=== PATIENT | female | born 1975 | race Caucasian/White ===

== ENCOUNTER 2019-11-26 00:26 | Inpatient (IN) | payer MEDICAID, OTHER, SELFPAY ==
[~2019-11-26] VITALS: Ht 154.9 cm; Wt 53.4 kg
[2019-11-26] MEDS ORDERED: no home meds (00:52)
[2019-11-26 01:11] LABS: HEMATOCRIT 38.8 % (36.0-47.0); HEMOGLOBIN 11.4 g/dl (12.0-15.5); MEAN CORPUSCULAR HEMOGLOBIN 22.8 pg (27.0-33.0); MEAN CORPUSCULAR HGB CONC 29.4 g/dl (32.0-36.5); MEAN CORPUSCULAR VOLUME 77.6 fl (80.0-96.0); PLATELET COUNT, AUTOMATED 236 10^3/uL (150-450); WHITE BLOOD COUNT 10.9 10^3/uL (4.0-10.0)
[2019-11-26 01:15] LABS: INR 1.27; PARTIAL THROMBOPLASTIN TIME 30.7 SECONDS (25.0-38.4); PROTHROMBIN TIME 15.6 SECONDS (11.8-14.0)
[2019-11-26] MEDS ORDERED: NS 1,000 ML IV ONE (01:15)
[2019-11-26] MEDS ORDERED: ONDANSETRON 4MG/2ML VIAL (J2405) IV ONE (01:15)
[2019-11-26] MEDS ORDERED: fentaNYL 100 MCG/2 ML INJECTION (J3010) IV ONE ×2 (01:15→05:00)
[2019-11-26 01:25] LABS: ALBUMIN 1.2 GM/DL (3.2-5.2); ALT/SGPT 37 U/L (12-78); BILIRUBIN,DIRECT 0.1 MG/DL (0.0-0.2); BILIRUBIN,TOTAL 0.3 MG/DL (0.2-1.0); BLOOD UREA NITROGEN 17 MG/DL (7-18); CALCIUM LEVEL 7.2 MG/DL (8.5-10.1); CARBON DIOXIDE LEVEL 25 MEQ/L (21-32); CHLORIDE LEVEL 106 MEQ/L (98-107); CK-MB VALUE MASS 1.3 NG/ML (<3.6); CPK CREATINE PHOSPHOKINASE 40 U/L (26-192); CREATININE FOR GFR 0.38 MG/DL (0.55-1.30); GLOMERULAR FILTRATION RATE > 60.0 (>58); GLUCOSE, FASTING 75 MG/DL (70-100); LIPASE 15 U/L (73-393); MB/CK RELATIVE INDEX 3.25 (< OR =4); NT-PRO BNP 133 PG/ML (<125); POTASSIUM SERUM 4.4 MEQ/L (3.5-5.1); SODIUM LEVEL 139 MEQ/L (136-145); TOTAL PROTEIN 4.4 GM/DL (6.4-8.2); TROPONIN I < 0.02 NG/ML (< 0.10)
[2019-11-26 01:29] LABS: ANISOCYTOSIS 3+; BASOPHILS 1 % (0-1); LYMPHOCYTES 12 % (16-44); METAMYELOCYTES 5 % (0-0); MONOCYTES 7 % (0-5); NEUTROPHILS 63 % (28-66); PLATELET ESTIMATE NORMAL (NORMAL)
[2019-11-26 01:33] LABS: HYPOCHROMASIA 2+
[2019-11-26] MEDS ORDERED: ISOVUE-370 76% 100ML VIAL (Q9967) As Ordered ONE (01:55)
--- NOTE | 2019-11-26 03:02 | REPVR ---
PROCEDURE INFORMATION: Exam: US Duplex Lower Extremity Veins Exam date and time: 11/26/2019 2:06 AM Age: 44 years old Clinical indication: Pain; Edema, localized; Lower extremity, bilateral; Leg, upper and leg, lower; Additional info: B/l lower extremity swelling TECHNIQUE: Imaging protocol: Real-time duplex ultrasound of the Lower Extremities with 2-D parker scale, color Doppler flow and spectral waveform analysis with image documentation. Complete exam focused on the bilateral lower extremity veins. COMPARISON: No relevant prior studies available. FINDINGS: Right deep veins: There is an occlusion of the right femoral vein in the upper and mid thigh and a partial occlusion of the right femoral vein in the distal thigh. The right common femoral vein is patent and compresses normally and demonstrates normal color Doppler flow and a normal spectral waveform. The right popliteal vein demonstrates normal color Doppler flow, a normal spectral waveform response augmentation, and normal compressibility. Right superficial veins: Saphenofemoral junction is patent without thrombus. Left deep veins: The left common femoral vein is patent and demonstrates normal compressibility, color Doppler flow, and a spectral waveform. There is an occlusion of the left femoral vein and left popliteal vein, which demonstrate lack of normal color Doppler flow and lack of a normal spectral waveform. Left superficial veins: Saphenofemoral junction is patent without thrombus. IMPRESSION: 1. Deep vein thrombosis occluding the right femoral vein in the upper and mid thigh and partially occluding the right femoral vein in the distal thigh. 2. Deep vein thrombosis completely occluding the left femoral vein and left popliteal vein. Electronically signed by: Rishi Gongora On 11/26/2019 03:02:08 AM
--- NOTE | 2019-11-26 03:28 | REPVR ---
PROCEDURE INFORMATION: Exam: CT Angiography Chest With Contrast Exam date and time: 11/26/2019 1:49 AM Age: 44 years old Clinical indication: Palpitations, SOB, abd pain TECHNIQUE: Imaging protocol: Computed tomographic angiography of the chest with intravenous contrast. 3D rendering: MIP and/or 3D reconstructed images were created by the technologist. Radiation optimization: All CT scans at this facility use at least one of these dose optimization techniques: automated exposure control; mA and/or kV adjustment per patient size (includes targeted exams where dose is matched to clinical indication); or iterative reconstruction. Contrast material: ISO; Contrast volume: 90 ml; Contrast route: AC; COMPARISON: No relevant prior studies available. FINDINGS: Pulmonary arteries: There are filling defects in the segmental and subsegmental pulmonary arteries supplying the anterior, posterior, and apical segments of the right upper lobe, posterior and lateral segments of the right lower lobe, apicoposterior segment of the left upper lobe, and anteromedial and lateral segments of the left lower lobe, which are compatible with acute pulmonary emboli. The pulmonary artery trunk and main pulmonary arteries are patent. Great vessels off aortic arch: The brachiocephalic artery, imaged proximal portion of the left common carotid artery, and left subclavian artery are intact. No significant stenosis or occlusion of these vessels is noted. Aorta: There is no thoracic aortic aneurysm, pseudoaneurysm, intramural hematoma, penetrating atherosclerotic ulcer, or dissection. Lungs: There are peripheral airspace opacities in the anterior segment of the right upper lobe, lateral segment of the right lower lobe, and anteromedial and lateral segments of the left lower lobe, which are most compatible with pulmonary infarcts. Mild ground-glass opacities are also present in the right middle lobe, right lower lobe, and left lower lobe. There is mild scarring of the lung apices. The major airways are patent. Pleural space: Unremarkable. No pneumothorax. No pleural effusion. Heart: No cardiomegaly. No pericardial effusion. The ratio of the diameter of the right ventricle to the diameter of the left ventricle measures less than 1, which is within normal limits and there is no evidence for a right ventricular strain. Mediastinum: No mediastinal mass, fluid collection, or pneumomediastinum. Lymph nodes: Normal. No enlarged lymph nodes. Bones/joints: The imaged bony structures are intact. There is no suspicious osteolytic or osteoblastic lesion. There are endplate spurs in the thoracic spine. Soft tissues: Unremarkable. Other findings: Refer to the CT abdomen and pelvis report on 11/26/2019 for details regarding the abdominal and pelvic findings. IMPRESSION: Multiple acute bilateral pulmonary emboli with pulmonary infarcts in the anterior segment of the right upper lobe, lateral segment of the right lower lobe, and anteromedial and lateral segments of the left lower lobe. No CT evidence for a right ventricular strain. Electronically signed by: Rishi Gongora On 11/26/2019 03:28:23 AM
--- NOTE | 2019-11-26 03:55 | REPVR ---
PROCEDURE INFORMATION: Exam: CT Abdomen And Pelvis With Contrast Exam date and time: 11/26/2019 1:49 AM Age: 44 years old Clinical indication: Palpitations, SOB, abd pain TECHNIQUE: Imaging protocol: Computed tomography of the abdomen and pelvis with intravenous contrast. Radiation optimization: All CT scans at this facility use at least one of these dose optimization techniques: automated exposure control; mA and/or kV adjustment per patient size (includes targeted exams where dose is matched to clinical indication); or iterative reconstruction. Contrast material: ISO; Contrast volume: 90 ml; Contrast route: AC; COMPARISON: No relevant prior studies available. FINDINGS: Lungs: Refer to the CTA chest report on 11/26/2019 for details. Heart: Refer to the CTA chest report on 11/26/2019 for details. Liver: The attenuation of the liver is more than 40 Hounsfield units lower in attenuation compared to the spleen, which is compatible with fatty liver infiltration. No liver lesion is seen. The contour of the liver is smooth. No hepatomegaly is noted. Gallbladder and bile ducts: There has been a cholecystectomy. There is no fluid collection in the gallbladder fossa. No dilation of the intrahepatic bile ducts is noted. The common bile duct is mildly dilated and measures 7 mm in diameter. No calcified stones are seen in the common bile duct. Pancreas: Normal. No ductal dilation. Spleen: The spleen is heterogeneous in appearance, which is likely secondary to the arterial timing of the contrast bolus. No splenomegaly. Adrenals: Normal. No mass. Kidneys and ureters: The kidneys are normal in appearance. No renal lesion is identified. No calculi are seen in the kidneys or ureters. There is no hydronephrosis or hydroureter. There are no wedge-shaped areas of low attenuation in the kidneys to suggest pyelonephritis. There is no renal abscess or perinephric fluid collection. Stomach and bowel: Postoperative changes are noted from a Lila-en-Y gastric bypass surgery. 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 The cecum is located in the right side of the pelvis. There is thickening of the wall of loops of jejunum and ileum and the wall of the cecum, ascending colon, and transverse colon with associated mucosal enhancement, and these findings are compatible with an enterocolitis. No hypoenhancement of the bowel wall or pneumatosis intestinalis is noted to suggest ischemic bowel. Appendix: The appendix has been removed and suture material is noted at the base of the cecum. Intraperitoneal space: There is a trace amount of free fluid in the abdomen. No abscess. No free air. There is a 3.8 cm oval-shaped fat density lesion with peripheral calcifications in the greater omentum in the left upper quadrant of the abdomen, which is likely dystrophic in nature. Retroperitoneal space: Unremarkable. No fluid collection. No mass. Vasculature: The abdominal aorta is patent, normal in caliber, and there is no dissection. The renal arteries, celiac artery, superior mesenteric artery, inferior mesenteric artery, iliac arteries, and common femoral arteries are patent. The portal veins, splenic vein, superior mesenteric vein, inferior mesenteric vein, and renal veins are patent. The superior mesenteric vein is located to the left of the superior mesenteric artery. Lymph nodes: Normal. No enlarged lymph nodes. Bladder: There is a Thomas catheter in appropriate position in the urinary bladder and gas in the bladder. No calculi or masses are noted in the bladder. Reproductive: The anteverted uterus and ovaries are unremarkable. Bones/joints: The imaged bony structures are intact. There is no suspicious osteolytic or osteoblastic lesion. Soft tissues: Unremarkable. No hernia. IMPRESSION: 1. Enterocolitis and a trace amount of free fluid in the abdomen. No abscess or perforated viscus. 2. Congenital malrotation of the bowel. No evidence for volvulus. 3. Fatty liver. Electronically signed by: Rishi Gongora On 11/26/2019 03:55:20 AM
[2019-11-26] MEDS ORDERED: HEPARIN DRIP 25,000 UNITS in IV 1 EA IV SCH ×2 (04:11→04:47)
[2019-11-26] MEDS ORDERED: HEPARIN SOD (PORCINE) 5000 UNITS/ML VIAL IV ONE (04:15)
[2019-11-26] MEDS ORDERED: MOM 30ML SUSPENSION UDC PO PRN (05:00)
[2019-11-26] MEDS ORDERED: MAALOX 30 ML SUSP *UDC PO PRN (05:00)
[2019-11-26] MEDS ORDERED: GLUCOSE 4 GM CHEW TABLET PO PRN (05:00)
[2019-11-26] MEDS ORDERED: DEXTROSE 50% 50 ML SYRINGE IV PRN (05:00)
[2019-11-26] MEDS ORDERED: GLUCAGON FOR INJ 1 MG VIAL (J1610) SC PRN (05:00)
--- NOTE | 2019-11-26 05:02 | HPEPDOC ---
[facility] Medical History & Physical Date of Admission Nov 26, 2019 Date of Service: Nov 26, 2019 Attending Physician: MCKINLEY FORREST MD History and Physical CHIEF COMPLAINT: leg pain/swelling, SOB HISTORY OF PRESENT ILLNESS: Bisi Lin is a 44 -year-old female who presented to the emergency department today with a 5 week history of swelling and pain in bilateral lower extremities and a 2 day history of shortness of breath. 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 She thought that this was just related to her work. She then noticed increasing pain and tenderness in bilateral calfs. She began spending more time on the couch and was unable to get up and walk due to pain. She reports for the past 5 days she has had a very poor food and fluid intake due to abdominal pain. She states she has been having pain in her lower abdomen and nausea over this time. She denies any vomiting or diarrhea. She denies any blood in her stool or black-colored stools. She also notes that she had not urinated in the past 4 days as well, until the Thomas catheter was placed in the emergency department. Patient also notes a 25-30 pound weight loss over the past week or two. She reports feeling fatigued and tired. PAST MEDICAL HISTORY: 1. Hx peptic ulcers with EGD and cauterization PAST SURGICAL HISTORY: 1. Gastric bypass 2009 2. 4 Incisional hernia repairs 3. Appendectomy. 4. Cholecystectomy. 5. 2 Abdominal scar revisions. 6. 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 Currently smokes half a pack a day for the past 20+ years, 10 pyh, has not smoked in the past 4-5 days. Denies alcohol or IV drug use. Admits to history of oxycodone abuse and Suboxone abuse over 5 years ago. FAMILY HISTORY: No known history of clotting disorders or cancers ALLERGIES: Please see below. REVIEW OF SYSTEMS: CONSTITUTIONAL: Endorses fatigue, unexpected change in weight. Denies fevers, chills, night sweats. HEENT: Denies change in vision, change in hearing. CARDIOVASCULAR: Endorses shortness of breath. Denies chest pain, palpitations, lightheadeness. RESPIRATORY: Denies cough, wheezing. GASTROINTESTINAL: Endorses nausea, abdominal pain. Denies vomiting, diarrhea, consitpation, blood in stool. GENITOURINARY: Endorses poor urinary output. Denies dysuria, urinary frequency, urinary urgency. SKIN: Denies rash, lesions. MUSCULOSKELETAL: Endorses bilateral foot and calf pain, bilateral calf and foot swelling, difficulty walking due to pain. NEUROLOGICAL: Endorses headache across the frontal region. Denies dizziness, weakness. PSYCHIATRIC: Denies change in mood. HOME MEDICATIONS: Please see below. PHYSICAL EXAMINATION: VITAL SIGNS: See below on room air. GENERAL: Alert, comfortable, appears in mild distress due to pain. Appears thin in her upper extremities and torso with significant edema in the lower extre mities. HEENT: Normocephalic, atraumatic, PERRLA, EOMI, dry mucous membranes NECK: Supple, trachea midline, no lymphadenopathy, no JVD appreciated CARDIOVASCULAR: Regular rate and rhythm, normal S1 and S2. No murmurs, rubs, or gallops RESPIRATORY: Decreased breath sounds bilaterally. No adventitious sounds appreciated. No use of accessory muscles to breathe. ABDOMEN: Tender throughout to palpation with increased tenderness over the left lower quadrant. Soft and nondistended with mild guarding but no rigidity or rebound tenderness. Multiple well-healed surgical scars. Bowel sounds present. EXTREMITIES: 4+ pitting edema in bilateral lower extremities up to the knee. Bilateral calf and pedal tenderness. Dorsalis pedis and posterior tibial pulses difficult to appreciate due to swelling and tenderness. No swelling or tenderness of the upper extremities. Capillary refill <2 sec. SKIN: [place], warm, dry NEUROLOGIC: Alert and oriented 3 [address] person, [address] and time. Cranial nerves 2-12 grossly intact. No focal deficits appreciated PSYCHIATRIC: Mood and affect appropriate LABORATORY DATA: See below. IMAGING: Lower extremity duplex U/S: 1. Deep vein thrombosis occluding the right femoral vein in the upper and mid thigh and partially occluding the right femoral vein in the distal thigh. 2. Deep vein thrombosis completely occluding the left femoral vein and left popliteal vein. CTA chest: Multiple acute bilateral pulmonary emboli with pulmonary infarcts in the anterior segment of the right upper lobe, lateral segment of the right lower lobe, and anteromedial and lateral segm ents of the left lower lobe. No CT evidence for a right ventricular strain. CT abdomen/pelvis: 1. Enterocolitis and a trace amount of free fluid in the abdomen. No abscess or perforated viscus. 2. Congenital malrotation of the bowel. No evidence for volvulus. 3. Fatty liver. MICROBIOLOGY: Please see below. ASSESSMENT: 44-year-old female with past medical history of gastric bypass, presents with 5 week history of progressive bilateral calf pain and swelling and 2 day history of shortness of breath, found to have bilateral lower extremity DVTs and multiple bilateral pulmonary emboli PLAN: 1. VTE - bilateral LE DVTs and pulmonary emboli - VS currently stable, O2 saturations maintaining above 95% on room air - Pt started on heparin drip in the ED. Consider vascular surgery consult for further intervention. - Elevate LE, pain control (avoid NSAIDs with hx of gastric bypass), coagulation studies ordered - Concern for CA, question mass on CT scan, bladder v. colon, not in the official report from [facility]. [facility] called to re-evaluate. 2. SIRS criteria - On presentation temp 100.4 F, HR 102, 12% bandemia, meets 3/4 criteria - likely reactive with possible underlying malignancy 3. Enterocolitis - clear liquid diet, advance as tolerated. expect poor oral intake given HPI, co ntinue maintenance IV fluids and q6 FSBS and hypoglycemic protocoluntil oral intake is sufficient, may need to add D5 to fluids if hypoglycemic. 4. Hx of anemia - Hg low at 11.4, microcytic with low MVC - Ordered iron panel and B12 considering hx of gastric bypass Disposition: Admitted inpatient to PCU, anticipate greater than 2 midnights stay Vital Signs Vital Signs Date Time Temp Pulse Resp B/P (MAP) Pulse Ox O2 Delivery O2 Flow Rate FiO2 11/26/19 03:45 92 16 97 Room Air 11/26/19 03:30 98/60 (73) 11/26/19 01:42 100.4 Laboratory Data Labs 24H Laboratory Tests 2 11/26/19 00:42: Nucleated Red Blood Cells % (auto) 0.0, Neutrophils 63, Band Neutrophils 12H, Lymphocytes (Manual) 12L, Monocytes (Manual) 7H, Basophils (Manual) 1, Metamyelocytes 5H, Hypochromasia 2+, Anisocytosis 3+, Target Cells , Platelet Estimate NORMAL, Prothrombin Time 15.6H, Prothromb Time International Ratio 1.27, Activated Partial Thromboplast Time 30.7, Anion Gap 8, Glomerular Filtration Rate > 60.0, Lactic Acid Level 2.0, Calcium Level 7.2L, Total Bilirubin 0.3, Direct Bilirubin 0.1, Aspartate Amino Transf (AST/SGOT) 23, Alanine Aminotransferase (ALT/SGPT) 37, Alkaline Phosphatase 202H, Total Creatine Kinase 40, Creatine Kinase MB 1.3, Creatine Kinase MB Relative Index 3.25, Troponin I < 0.02, WM-Uxr-Y-Type Natriuretic Peptide 133H, Total Protein 4.4L, Albumin 1.2L, Albumin/Globulin Ratio 0.38L, Lipase 15L 11/26/19 01:22: POC Glucose (Misc Panel) 80, POC Sodium (Misc Panel) 134L, POC Potassium (Misc Panel) 4.1, POC Chloride (Misc Panel) 103, POC Total CO2 (Misc Panel) 24.0, POC Blood Urea Nitrogen (Misc Panel 15, POC Ionized Calcium (Misc Panel) 4.5, POC Creatinine (Misc Panel) 0.3L, POC Hematocrit (Misc Panel) 35.0L 11/26/19 01:38: Urine Color DAPHNE, Urine Appearance CLEAR, Urine pH 6.0, Urine Specific [place] 1.026, Urine Protein NEGATIVE, Urine Glucose (UA) NEGATIVE, Urine Ketones TRACEH, Urine Blood NEGATIVE, Urine Nitrite NEGATIVE, Urine Bilirubin 1+H, Urine Urobilinogen 4.0H, Urine Leukocyte Esterase NEGATIVE, Urine WBC (Auto) 0, Urine RBC (Auto) 1, Urine Hyaline Casts (Auto) 0, Urine Bacteria (Auto) NEGATIVE, Urine Squamous Epithelial Cells 0, Urine Mucus (Auto) SMALL, Urine Sperm (Auto) CBC/BMP Laboratory Tests 11/26/19 00:42 Microbiology Microbiology 11/26/19 Blood Culture, Received Pending 11/26/19 Blood Culture, Received Pending Home Medications Scheduled Rivaroxaban (Xarelto) 20 Mg Tablet, 20 MG PO DAILY@18 Allergies Coded Allergies: morphine (Verified Allergy, Intermediate, hives, 11/26/19) A-FIB/CHADSVASC A-FIB History Current/History of A-Fib/PAF?: No GME ATTESTATION GME ATTESTATION My faculty preceptor for this patient encounter was physically present during the encounter and was fully available. All aspects of the patient interview, examination, medical decision making process, and medical care plan development were reviewed and approved by the faculty preceptor. The faculty preceptor is aware and concurs with the plan as stated in the body of this note and will attest to such by his/her cosignature. ATTENDING NOTE I examined VitalyDelia, reviewed and edited 's note and agree with the findings as documented. WANG LANDAVERDE D.O. Nov 26, 2019 05:02 MCKINLEY FORREST MD Nov 29, 2019 01:32
[2019-11-26 06:19] LABS: HEMATOCRIT 31.2 % (36.0-47.0); HEMOGLOBIN 9.6 g/dl (12.0-15.5); MEAN CORPUSCULAR HEMOGLOBIN 23.4 pg (27.0-33.0); MEAN CORPUSCULAR HGB CONC 30.8 g/dl (32.0-36.5); MEAN CORPUSCULAR VOLUME 76.1 fl (80.0-96.0); PLATELET COUNT, AUTOMATED 206 10^3/uL (150-450); WHITE BLOOD COUNT 10.4 10^3/uL (4.0-10.0)
[2019-11-26 06:37] VITALS: BP 98/60
[2019-11-26 06:37] LABS: FIBRINOGEN 136 MG/DL (221-452)
[2019-11-26] MEDS: NS 1,000 ML IV SCH ×3 (06:46→23:21)
[2019-11-26 06:57] LABS: PERCENT SATURATION 45.4 % (13.2-45.0)
[2019-11-26 07:06] LABS: PARTIAL THROMBOPLASTIN TIME > 120.0 SECONDS (25.0-38.4)
[2019-11-26 08:00] VITALS: BP 100/62
[2019-11-26] MEDS: ACETAMINOPHEN TAB 650MG DOSE (2X325MG) PO PRN (09:05)
[2019-11-26] MEDS: DOCUSATE SODIUM 100 MG CAP PO SCH ×2 (09:05→20:38)
[2019-11-26] MEDS: PANTOPRAZOLE 40MG TAB (PROTONIX) PO SCH (09:05)
[2019-11-26 11:13] LABS: PTT LUPUS TYPE ANTICOAG SCREEN 1.6 (0-1.2)
[2019-11-26 11:57] LABS: DRVV CONFIRM 48.8 SEC; LUPUS CONFIRM RATIO 1.3
[2019-11-26 11:58] LABS: NORMALIZED RATIO 1.23 (0.00-1.20)
[2019-11-26 12:00] VITALS: BP 96/52
[2019-11-26] MEDS: HEPARIN SOD (PORCINE) 5000 UNITS/ML VIAL IV PRN ×2 (12:07→19:03)
[2019-11-26 16:00] VITALS: BP 98/76
[2019-11-26] MEDS: PIPERACILLIN/TAZOBACTAM SOD 3.375 GM in D5W MINI-BAG PLUS 50 ML IV SCH ×2 (17:45→23:21)
[2019-11-26 20:00] VITALS: BP 99/62
[2019-11-27] VITALS (7 sets, daily range): BP systolic 90–112; BP diastolic 57–67
[2019-11-27] MEDS: PIPERACILLIN/TAZOBACTAM SOD 3.375 GM in D5W MINI-BAG PLUS 50 ML IV SCH ×2 (04:37→11:51)
--- NOTE | 2019-11-27 07:51 | ECGEPIP ---
[facility] - ED Test Date: 2019-11-26 Pat Name: AMANDA SHARP Department: Room: [place] [address] Gender: Female Sack Sorter: : 1975 Requested By: ISAEL Fernandez Order Number: [id number] Reading MD: Yazmin Espinosa Measurements Intervals [place] Rate: 90 P: 56 GA: 132 QRS: 67 QRSD: 75 T: 37 QT: 305 QTc: 374 Interpretive Statements SINUS RHYTHM NONSPECIFIC T-WAVE ABNORMALITY NO PRIOR Electronically Signed on 11-27-2019 7:51:32 EST by Yazmin Espinosa
[2019-11-27 08:34] LABS: ALBUMIN 0.9 GM/DL (3.2-5.2); ALT/SGPT 29 U/L (12-78); BILIRUBIN,TOTAL 0.3 MG/DL (0.2-1.0); BLOOD UREA NITROGEN 16 MG/DL (7-18); CALCIUM LEVEL 6.9 MG/DL (8.5-10.1); CARBON DIOXIDE LEVEL 23 MEQ/L (21-32); CHLORIDE LEVEL 111 MEQ/L (98-107); CREATININE FOR GFR 0.26 MG/DL (0.55-1.30); GLOMERULAR FILTRATION RATE > 60.0 (>58); GLUCOSE, FASTING 76 MG/DL (70-100); MAGNESIUM LEVEL 1.7 MG/DL (1.8-2.4); PHOSPHORUS LEVEL 2.7 MG/DL (2.5-4.9); POTASSIUM SERUM 3.6 MEQ/L (3.5-5.1); SODIUM LEVEL 141 MEQ/L (136-145); TOTAL PROTEIN 3.8 GM/DL (6.4-8.2)
[2019-11-27] MEDS: HEPARIN SOD (PORCINE) 5000 UNITS/ML VIAL IV PRN (08:56)
[2019-11-27] MEDS: PANTOPRAZOLE 40MG TAB (PROTONIX) PO SCH (09:26)
[2019-11-27] MEDS: DOCUSATE SODIUM 100 MG CAP PO SCH ×2 (09:26→21:00)
[2019-11-27] MEDS: RIVAROXABAN 20 MG TAB (XARELTO) PO SCH (12:19)
--- NOTE | 2019-11-27 12:28 | IPNPDOC ---
Subjective Date Seen The patient was seen on 11/27/19. Subjective Chief Complaint/HPI Patient complaining of abdominal pain, refusing to take Tylenol or Motrin and requesting opiate meds. Patient SEEMS lethargic. When interviewed, but as per patient, she has been up all night because when she is drowsy. General: Denies: ROS Unobtainable, Chills, Night Sweats, Fatigue, Malaise, Normal Appetite, Other Symptoms Skin: Denies: Rash, Lesions, Jaundice, Bruising, Itching, Dry, Breakdown, Nail Changes, Other Pulmonary: Denies: Dyspnea, Cough, Pleuritic Chest Pain, Other Symptoms Cardiovascular: Denies: Chest Pain, Palpitations, Orthopnea, Paroxysmal Noc. Dyspnea, Edema, Lt Headedness, Other Symptoms Gastrointestinal: Reports: Abdominal Pain Musculoskeletal: Denies: Neck Pain, Back Pain, Shoulder Pain, Arm Pain, Hand Pain, Leg Pain, Foot Pain, Joint Pain, Muscle Pain, Spasms, Other Symptoms Neurological: Denies: Weakness, Numbness, Incoordination, Change in speech, Confusion, Seizures, Other Symptoms Objective Physical Examination General Exam: Positive: Cooperative, Other Eye Exam: Positive: PERRLA, Conjunctiva & lids normal ENT Exam: Positive: Atraumatic, Mucous membr. moist/pink Chest Exam: Positive: Clear to auscultation, Normal air movement Heart Exam: Positive: Rate Normal, Normal S1, Normal S2 Abdomen Exam: Positive: Normal bowel sounds, Soft, Tenderness (generalized tenderness all over the abdomen jumps when I touch her with my hand while not palpating deep) Skin Exam: Positive: Nl turgor and temperature Neuro Exam: Positive: Strength at 5/5 X4 ext, Sensation Intact, Cranial Nerves 3-12 NL Assessment /Plan Problems (1) Enterocolitis Status: Acute Problem Text: Patient is currently on clear liquid diet, advance as tolerated Continue IV fluids as per orders Continue Tylenol when necessary for pain (2) Pulmonary embolism Status: Acute Problem Text: Heparin drip continued Patient is started on Xarelto by mouth (3) DVT, bilateral lower limbs Status: Acute Problem Text: Heparin drip discontinued and is started on by mouth Xarelto Plan/VTE VTE Prophylaxis Ordered?: Yes VS, I&O, 24H, Fishbone Vital Signs/I&O Vital Signs Date Time Temp Pulse Resp B/P (MAP) Pulse Ox O2 Delivery O2 Flow Rate FiO2 11/27/19 11:51 98.5 84 18 108/64 (79) 95 11/27/19 04:00 Nasal Cannula 2.0 I&O- Last 24 Hours up to 6 AM 11/27/19 06:00 Intake Total 1379.0 ml Output Total 675 ml Balance 704.0 ml Laboratory Data 24H LABS Laboratory Tests 2 11/26/19 14:49: Lactic Acid Level 2.4*H 11/26/19 17:12: Bedside Glucose (Misc Panel) 69L 11/26/19 18:26: Activated Partial Thromboplast Time 36.7 11/26/19 19:18: Lactic Acid Followup at 4 Hours 3.2*H 11/26/19 23:27: Bedside Glucose (Misc Panel) 75 11/27/19 01:37: Activated Partial Thromboplast Time 68.1H 11/27/19 06:13: Bedside Glucose (Misc Panel) 89 11/27/19 07:46: Activated Partial Thromboplast Time 40.4H, Anion Gap 7L, Glomerular Filtration Rate > 60.0, Calcium Level 6.9L, Phosphorus Level 2.7, Magnesium Level 1.7L, Total Bilirubin 0.3, Aspartate Amino Transf (AST/SGOT) 17, Alanine Aminotransferase (ALT/SGPT) 29, Alkaline Phosphatase 190H, Total Protein 3.8L, Albumin 0.9#L, Albumin/Globulin Ratio 0.31L CBC/BMP Laboratory Tests 11/27/19 07:46 Microbiology Microbiology 11/26/19 Blood Culture - Preliminary, Resulted No growth after 24 hours . All specim... 11/26/19 Blood Culture - Preliminary, Resulted No growth after 24 hours . All specim... YARELIS HAMILTON MD Nov 27, 2019 12:28
[2019-11-27] MEDS: CIPROFLOXACIN 400 MG in IV 1 EA IV SCH (13:48)
[2019-11-27] MEDS: metroNIDAZOLE 500 MG in IV 1 EA IV SCH ×2 (15:50→21:11)
[2019-11-27] MEDS: NS 1,000 ML IV SCH (15:50)
--- NOTE | 2019-11-27 21:29 | CR.PDOC ---
General Date of Consultation: Nov 27, 2019 Attending Physician: NISHI SALAZAR DO Consultation REASON FOR CONSULTATION/CHIEF COMPLAINT: 11/26/19 CT abd/pel findings compatible with Enterocolitis HISTORY OF PRESENT ILLNESS: Bisi is a 44-year-old female with pertinent past medical history of gastric bypass surgery (2009), who presented to the emergency department via EMS on 11/26/19 with chief complaints of 5-week history of progressive bilateral calf pain and swelling, as well as a 2-day history of dyspnea. Imaging showed patient has bilateral lower extremity DVTs and multiple acute bilateral pulmonary e mboli. CT abdomen and pelvis showed thickened wall and loops of jejunum, ileum, cecum, and transverse colon, with associated mucosal enhancement, suggestive of enterocolitis - - general surgery was subsequently consulted. Patient reports sharp, intermittent right lower quadrant abdominal pain that rates 67 out of 10. Lying on her left side helps improve her pain somewhat. She has not had a bowel movement nor pass flatus since admission. She reports burping and tolerating a clear diet without any issues. ALLERGIES: Please see below. HOME MEDICATIONS: Please see below. PAST MEDICAL HISTORY: 1. h/o peptic ulcers with EGD and cauterization PAST SURGICAL HISTORY: 1. Gastric bypass 2009 2. 4 Incisional hernia repairs 3. Appendectomy. 4. Cholecystectomy. 5. 2 Abdominal scar revisions. 6. 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 Currently smokes half a pack a day for the past 20+ years, 10 pyh, has not smoked in the past 4-5 days. Denies alcohol or IV drug use. Admits to history of oxycodone abuse and Suboxone abuse over 5 years ago. REVIEW OF SYSTEMS: CONSTITUTIONAL: Endorses recent unintentional decrease in weight, approximately 25-30 pounds; denies fever, chills, or night sweats. CARDIOVASCULAR: Denies chest pain, chest pressure, or palpitations. RESPIRATORY: Endorses shortness of breath; denies cough or pleuritic chest pain MUSCULOSKELETAL: [place] is bilateral lower extremity swelling and GASTROINTESTINAL: Endorses right lower quadrant pain; denies feeling nauseated or vomiting PHYSICAL EXAMINATION: VITAL SIGNS: Please see below. GENERAL APPEARANCE: Patient appears to be in mild distress secondary to her abdominal pain and discomfort, moving gingerly. She appears to be somewhat pale, with thin upper extremities and torso. A and O 3. Patient is lying in left lateral decubitus position in bed. HEENT: Anicteric sclera. PERRLA. RESPIRATORY: Poor respiratory effort with decreased tidal volume. Clear to auscultation bilaterally, anteriorly and posteriorly, although difficult to fully appreciate due to diminished inspiratory effort and tidal volume. CARDIOVASCULAR: Tachycardic with regular rhythm. Normal S1, S2. No murmurs, rubs, or clicks appreciated. Adequate capillary refill. ABDOMEN: Abdominal striae and 4-5 centimeter midline vertical well-healed scar just inferior to umbilicus visible. Soft and nondistended. Has diffuse tenderness throughout all abdominal quadrants with both percussion and light palpation. There is localized guarding over the right lower quadrant, without rigidity. Hypoactive bowel sounds. EXTREMITIES: Bilateral calf muscles are tender with left lower extremity swelling. There is no visible erythema of either lower extremities, with no apparent skin tautness. 2+ radial pulses bilaterally. Difficult to appreciate lower extremity pulses due to patient's sensitivity and swelling. NEUROLOGICAL: No focal deficits are appreciated. Patient is awake, alert and oriented 3. She responds appropriately to questions and commands. LABORATORY DATA: Please see below. ASSESSMENT/PLAN: Continue to advance patient's diet as tolerated. Due to patient's symptoms and findings on imaging, an outpatient colonoscopy is recommended once her more acute symptoms have resolved/been diagnosed and appropriately worked up.. Thank you for the consultation and the privilege to participate in the care of this patient. Should further questions or concerns arise from a general surgery standpoint, please reach out. Vital Signs/I&O Vital Signs Date Time Temp Pulse Resp B/P (MAP) Pulse Ox O2 Delivery O2 Flow Rate FiO2 11/27/19 15:52 97.6 85 18 96/61 (73) 95 Room Air 11/27/19 04:00 2.0 I&O- Last 24 Hours up to 6 AM 11/27/19 06:00 Intake Total 1379.0 ml Output Total 675 ml Balance 704.0 ml Laboratory Data Labs 24H Laboratory Tests 2 11/26/19 23:27: Bedside Glucose (Misc Panel) 75 11/27/19 01:37: Activated Partial Thromboplast Time 68.1H 11/27/19 06:13: Bedside Glucose (Misc Panel) 89 11/27/19 07:46: Activated Partial Thromboplast Time 40.4H, Anion Gap 7L, Glomerular Filtration Rate > 60.0, Calcium Level 6.9L, Phosphorus Level 2.7, Magnesium Level 1.7L, Total Bilirubin 0.3, Aspartate Amino Transf (AST/SGOT) 17, Alanine Aminotran sferase (ALT/SGPT) 29, Alkaline Phosphatase 190H, Total Protein 3.8L, Albumin 0.9#L, Albumin/Globulin Ratio 0.31L 11/27/19 15:03: Activated Partial Thromboplast Time 52.0H CBC/BMP Laboratory Tests 11/27/19 07:46 Microbiology Microbiology 11/26/19 Blood Culture - Preliminary, Resulted No growth after 24 hours . All specim... 11/26/19 Blood Culture - Preliminary, Resulted No growth after 24 hours . All specim... Allergies Coded Allergies: morphine (Verified Allergy, Intermediate, hives, 11/26/19) Home Medications No Active Prescriptions or Reported SANDY Odom D.O. Nov 27, 2019 21:29
[2019-11-28] MEDS: CIPROFLOXACIN 400 MG in IV 1 EA IV SCH ×2 (00:09→14:30)
[2019-11-28] MEDS: NS 1,000 ML IV SCH (03:59)
[2019-11-28 04:00] VITALS: BP 90/56
[2019-11-28] MEDS: metroNIDAZOLE 500 MG in IV 1 EA IV SCH ×3 (06:03→22:36)
[2019-11-28 06:06] LABS: ALBUMIN 0.9 GM/DL (3.2-5.2); ALT/SGPT 25 U/L (12-78); BILIRUBIN,TOTAL 0.3 MG/DL (0.2-1.0); BLOOD UREA NITROGEN 16 MG/DL (7-18); CALCIUM LEVEL 6.8 MG/DL (8.5-10.1); CARBON DIOXIDE LEVEL 22 MEQ/L (21-32); CHLORIDE LEVEL 114 MEQ/L (98-107); CREATININE FOR GFR 0.18 MG/DL (0.55-1.30); GLOMERULAR FILTRATION RATE > 60.0 (>58); GLUCOSE, FASTING 82 MG/DL (70-100); POTASSIUM SERUM 3.3 MEQ/L (3.5-5.1); SODIUM LEVEL 143 MEQ/L (136-145); TOTAL PROTEIN 3.6 GM/DL (6.4-8.2)
[2019-11-28 06:55] LABS: HEMATOCRIT 31.4 % (36.0-47.0); MEAN CORPUSCULAR HEMOGLOBIN 22.8 pg (27.0-33.0); MEAN CORPUSCULAR HGB CONC 28.7 g/dl (32.0-36.5); MEAN CORPUSCULAR VOLUME 79.5 fl (80.0-96.0); PLATELET COUNT, AUTOMATED 194 10^3/uL (150-450); RED BLOOD COUNT 3.95 10^6/uL (4.00-5.40); WHITE BLOOD COUNT 5.5 10^3/uL (4.0-10.0)
[2019-11-28] MEDS ORDERED: POTASSIUM CHLORIDE 10 MEQ SR TABLET PO ONE (07:15)
[2019-11-28 07:34] LABS: ATYPICAL LYMPH 3 % (0-5); BASOPHILS 1 % (0-1); LYMPHOCYTES 16 % (16-44); METAMYELOCYTES 1 % (0-0); MONOCYTES 3 % (0-5); NEUTROPHILS 59 % (28-66)
[2019-11-28 07:35] LABS: ANISOCYTOSIS 2+; HYPOCHROMASIA 1+; PLATELET ESTIMATE NORMAL (NORMAL)
[2019-11-28 07:50] VITALS: BP 91/55
[2019-11-28] MEDS: DOCUSATE SODIUM 100 MG CAP PO SCH ×2 (09:00→21:00)
[2019-11-28] MEDS: PANTOPRAZOLE 40MG TAB (PROTONIX) PO SCH (09:15)
--- NOTE | 2019-11-28 12:07 | IPNPDOC ---
Subjective Date Seen The patient was seen on 11/28/19. Subjective Chief Complaint/HPI Patient feeling a lot better today. Sitting up by the bedside and will restart taking regular diet today General: Denies: ROS Unobtainable, Chills, Night Sweats, Fatigue, Malaise, Normal Appetite, Other Symptoms Skin: Denies: Rash, Lesions, Jaundice, Bruising, Itching, Dry, Breakdown, Nail Changes, Other Pulmonary: Denies: Dyspnea, Cough, Pleuritic Chest Pain, Other Symptoms Cardiovascular: Denies: Chest Pain, Palpitations, Orthopnea, Paroxysmal Noc. D yspnea, Edema, Lt Headedness, Other Symptoms Gastrointestinal: Reports: Abdominal Pain (decreased abdominal pain) Musculoskeletal: Denies: Neck Pain, Back Pain, Shoulder Pain, Arm Pain, Hand Pain, Leg Pain, Foot Pain, Joint Pain, Muscle Pain, Spasms, Other Symptoms Neurological: Denies: Weakness, Numbness, Incoordination, Change in speech, Confusion, Seizures, Other Symptoms Objective Physical Examination General Exam: Positive: Cooperative, Other Eye Exam: Positive: PERRLA, Conjunctiva & lids normal ENT Exam: Positive: Atraumatic, Mucous membr. moist/pink Chest Exam: Positive: Clear to auscultation, Normal air movement Heart Exam: Positive: Rate Normal, Normal S1, Normal S2 Abdomen Exam: Positive: Normal bowel sounds, Soft, Tenderness (generalized tenderness all over the abdomen jumps when I touch her with my hand while not palpating deep) Skin Exam: Positive: Nl turgor and temperature Neuro Exam: Positive: Strength at 5/5 X4 ext, Sensation Intact, Cranial Nerves 3-12 NL Assessment /Plan Problems (1) Enterocolitis Status: Acute Problem Text: . Patient had been advanced on the regular diet Monitor patient clinically Continue IV Cipro and Flagyl Repeat level. Works in a[employer] (2) Pulmonary embolism Status: Acute Problem Text: Heparin drip continued Patient is started on Xarelto by mouth (3) DVT, bilateral lower limbs Status: Acute Problem Text: Heparin drip discontinued and is started on by mouth Xarelto Plan/VTE VTE Prophylaxis Ordered?: Yes VS, I&O, 24H, Fishbone Vital Signs/I&O Vital Signs Date Time Temp Pulse Resp B/P (MAP) Pulse Ox O2 Delivery O2 Flow Rate FiO2 11/28/19 07:50 97.0 62 16 91/55 (67) 97 Room Air 11/27/19 04:00 2.0 I&O- Last 24 Hours up to 6 AM 11/28/19 06:00 Intake Total 3395 ml Output Total 450 ml Balance 2945 ml Laboratory Data 24H LABS Laboratory Tests 2 11/27/19 15:03: Activated Partial Thromboplast Time 52.0H 11/28/19 05:19: Nucleated Red Blood Cells % (auto) 0.0, Neutrophils 59, Band Neutrophils 17H, Lymphocytes (Manual) 16, Monocytes (Manual) 3, Basophils (Manual) 1, Metamyelocytes 1H, Atypical Lymphocytes 3, Hypochromasia 1+, Anisocytosis 2+, Platelet Estimate NORMAL 11/28/19 05:22: Anion Gap 7L, Glomerular Filtration Rate > 60.0, Calcium Level 6.8L, Total Bilirubin 0.3, Aspartate Amino Transf (AST/SGOT) 17, Alanine Aminotransferase (ALT/SGPT) 25, Alkaline Phosphatase 201H, Total Protein 3.6L, Albumin 0.9L, Albumin/Globulin Ratio 0.33L CBC/BMP Laboratory Tests 11/28/19 05:19 11/28/19 05:22 Microbiology Microbiology 11/26/19 Blood Culture - Preliminary, Resulted No Growth after 48 hours. All Specime... 11/26/19 Blood Culture - Preliminary, Resulted No Growth after 48 hours. All Specime... YARELIS HAMILTON MD Nov 28, 2019 12:07
[2019-11-28] MEDS ORDERED: XARE20TA PO (12:08)
[2019-11-28 15:41] VITALS: BP 101/57
[2019-11-28] MEDS: ACETAMINOPHEN TAB 650MG DOSE (2X325MG) PO PRN (16:14)
[2019-11-28] MEDS: RIVAROXABAN 20 MG TAB (XARELTO) PO SCH (17:37)
[2019-11-28 20:45] VITALS: BP 97/54
[2019-11-29] VITALS: BP 83/53
[2019-11-29 00:07] LABS: HEXAGONAL PHASE PHOSPHOLIPID 0 sec (0-11)
[2019-11-29] MEDS: CIPROFLOXACIN 400 MG in IV 1 EA IV SCH ×2 (00:09→13:00)
[2019-11-29] MEDS ORDERED: NS 500 ML IV ONE (00:45)
[2019-11-29 02:57] VITALS: BP 92/60
[2019-11-29] MEDS: metroNIDAZOLE 500 MG in IV 1 EA IV SCH ×2 (06:45→13:05)
[2019-11-29 06:57] LABS: HEMATOCRIT 31.7 % (36.0-47.0); HEMOGLOBIN 9.4 g/dl (12.0-15.5); MEAN CORPUSCULAR HEMOGLOBIN 23.4 pg (27.0-33.0); MEAN CORPUSCULAR HGB CONC 29.7 g/dl (32.0-36.5); MEAN CORPUSCULAR VOLUME 79.1 fl (80.0-96.0); PLATELET COUNT, AUTOMATED 188 10^3/uL (150-450); RED BLOOD COUNT 4.01 10^6/uL (4.00-5.40); WHITE BLOOD COUNT 5.7 10^3/uL (4.0-10.0)
[2019-11-29 07:22] LABS: ALT/SGPT 23 U/L (12-78); BILIRUBIN,TOTAL 0.5 MG/DL (0.2-1.0); BLOOD UREA NITROGEN 14 MG/DL (7-18); CARBON DIOXIDE LEVEL 24 MEQ/L (21-32); CHLORIDE LEVEL 114 MEQ/L (98-107); CREATININE FOR GFR 0.29 MG/DL (0.55-1.30); GLOMERULAR FILTRATION RATE > 60.0 (>58); GLUCOSE, FASTING 82 MG/DL (70-100); POTASSIUM SERUM 3.6 MEQ/L (3.5-5.1); SODIUM LEVEL 141 MEQ/L (136-145); TOTAL PROTEIN 3.8 GM/DL (6.4-8.2)
[2019-11-29 07:23] LABS: ATYPICAL LYMPH 1 % (0-5); EOSINOPHILS 1 % (0-3); HYPOCHROMASIA 2+; LYMPHOCYTES 15 % (16-44); MONOCYTES 7 % (0-5); NEUTROPHILS 74 % (28-66); PLATELET ESTIMATE NORMAL (NORMAL)
[2019-11-29 07:24] LABS: ANISOCYTOSIS 3+
[2019-11-29 08:00] VITALS: BP 98/60
[2019-11-29] MEDS ORDERED: POTASSIUM CHLORIDE 10 MEQ SR TABLET PO ONE (08:00)
[2019-11-29] MEDS ORDERED: RIVAROXABAN 15 MG TAB (XARELTO) PO SCH (08:00)
[2019-11-29] MEDS: DOCUSATE SODIUM 100 MG CAP PO SCH (08:21)
[2019-11-29] MEDS: PANTOPRAZOLE 40MG TAB (PROTONIX) PO SCH (08:21)
--- NOTE | 2019-11-29 11:01 | IPNPDOC ---
Subjective Date Seen The patient was seen on 11/29/19. Subjective Chief Complaint/HPI Patient was to go home. As per patient, she might get infected and she has 17 years old son at home, but she is not cleared by physical therapy to go home yet General: Denies: ROS Unobtainable, Chills, Night Sweats, Fatigue, Malaise, Normal Appetite, Other Symptoms Constitutional: Denies: Chills, Fever, Malaise, Night Sweats, Weakness, Fatigue, Weight Loss, Lethargy, Other Pulmonary: Denies: Dyspnea, Cough, Pleuritic Chest Pain, Other Symptoms Cardiovascular: Denies: Chest Pain, Palpitations, Orthopnea, Paroxysmal Noc. Dyspnea, Edema, Lt Headedness, Other Symptoms Gastrointestinal: Denies: Nausea, Vomiting, Abdominal Pain, Diarrhea, Constipation, Melena, Hematochezia, Other Symptoms Musculoskeletal: Denies: Neck Pain, Back Pain, Shoulder Pain, Arm Pain, Hand Pain, Leg Pain, Foot Pain, Joint Pain, Muscle Pain, Spasms, Other Symptoms Neurological: Denies: Weakness, Numbness, Incoordination, Change in speech, Confusion, Seizures, Other Symptoms Objective Physical Examination ENT Exam: Positive: Atraumatic, Mucous membr. moist/pink Chest Exam: Positive: Clear to auscultation, Normal air movement Heart Exam: Positive: Rate Normal, Normal S1, Normal S2 Abdomen Exam: Positive: Normal bowel sounds, Soft, Tenderness (generalized tenderness all over the abdomen jumps when I touch her with my hand while not palpating deep) Extremity Exam: Positive: Edema Skin Exam: Positive: Nl turgor and temperature Neuro Exam: Positive: Strength at 5/5 X4 ext, Sensation Intact, Cranial Nerves 3-12 NL Assessment /Plan Problems (1) Enterocolitis Status: Acute Problem Text: Patient is tolerating advanced diet Will change to Cipro and Flagyl to by mouth today WBC count is 5.7 and she is clinically much better DC home on by mouth antibiotics once cleared by physical therapy Further workup and follow with GI as an outpatient (2) Pulmonary embolism Status: Acute Problem Text: Patient currently on Xarelto 15 mg by mouth twice a day Etiology yet unknown. Needs further workup as an outpatient (3) DVT, bilateral lower limbs Status: Acute Problem Text: As above (4) Malabsorption Status: Acute Problem Text: Patient most likely has a malabsorption secondary to gastric bypass surgery and enterocolitis Patient is follow-up with GI as an outpatient for further workup and management Plan/VTE VTE Prophylaxis Ordered?: Yes VS, I&O, 24H, Fishbone Vital Signs/I&O Vital Signs Date Time Temp Pulse Resp B/P (MAP) Pulse Ox O2 Delivery O2 Flow Rate FiO2 11/29/19 08:00 98.4 83 16 98/60 (73) 98 Room Air 11/27/19 04:00 2.0 I&O- Last 24 Hours up to 6 AM 11/29/19 06:00 Intake Total 1190 ml Output Total 575 ml Balance 615 ml Laboratory Data 24H LABS Laboratory Tests 2 11/29/19 06:43: Nucleated Red Blood Cells % (auto) 0.0, Neutrophils 74H, Band Neutrophils 2, Lymphocytes (Manual) 15L, Monocytes (Manual) 7H, Eosinophils (Manual) 1, Atypical Lymphocytes 1, Hypochromasia 2+, Anisocytosis 3+, Platelet Estimate NORMAL, Anion Gap 3L, Glomerular Filtration Rate > 60.0, Calcium Level 7.0L, Total Bilirubin 0.5#, Aspartate Amino Transf (AST/SGOT) 18, Alanine Aminotransferase (ALT/SGPT) 23, Alkaline Phosphatase 248H, Total Protein 3.8L, Albumin 1.0L, Albumin/Globulin Ratio 0.36L CBC/BMP Laboratory Tests 11/29/19 06:43 Microbiology Microbiology 11/26/19 Blood Culture - Preliminary, Resulted No Growth after 72 hours. All specime... 11/26/19 Blood Culture - Preliminary, Resulted No Growth after 72 hours. All specime... YARELIS HAMILTON MD Nov 29, 2019 11:01
[2019-11-29] MEDS ORDERED: FLAG500T PO (11:51)
[2019-11-29] MEDS ORDERED: CIPR-249 PO (11:51)
[2019-11-29] MEDS ORDERED: XARE15TA PO (11:51)
--- NOTE | 2019-11-29 12:51 | DS.PDOC ---
Discharge Summary General Date of Admission Nov 26, 2019 at 04:22 Date of Discharge 11/29/19 Discharge Summary PROCEDURES PERFORMED DURING STAY: None. ADMITTING DIAGNOSES: 1. DVT, PE, enterocolitis. DISCHARGE DIAGNOSES: 1. DVT, PE, enterocolitis, malabsorption syndrome. COMPLICATIONS/CHIEF COMPLAINT: DVT. HISTORY OF PRESENT ILLNESS: Bisi Lin is a 44 -year-old female who presented to the emergency department today with a 5 week history of swelling and pain in bilateral lower extremities and a 2 day history of shortness of breath. 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 She thought that this was just related to her work. She then noticed increasing pain and tenderness in bilateral calfs. She began spending more time on the couch and was unable to get up and walk due to pain. She reports for the past 5 days she has had a very poor food and fluid intake due to abdominal pain. She states she has been having pain in her lower abdomen and nausea over this time. She denies any vomiting or diarrhea. She denies any blood in her stool or black-colored stools. She also notes that she had not urinated in the past 4 days as well, until the Thomas catheter was placed in the emergency department. Patient also notes a 25-30 pound weight loss over the past week or two. She reports feeling fatigued and tired.. HOSPITAL COURSE: Enterocolitis Patient is tolerating advanced diet, patient responded very well to IV Flagyl and Vanco a WBC count is 5.7 today Will change to Cipro and Flagyl to by mouth today Patient is clinically much better, asymptomatic, tolerating feeding Conchita cleared by physical therapy as well and will be discharged home Further workup and follow with GI and PCP as an outpatient Pulmonary embolism Patient currently on Xarelto 15 mg by mouth twice a day Etiology yet unknown. Needs further workup as an outpatient DVT, bilateral lower limbs Continue Xarelto further workup with PCP as an outpatient Malabsorption Patient most likely has a malabsorption secondary to gastric bypass surgery and enterocolitis Patient is follow-up with GI as an outpatient for further workup and management. DISCHARGE MEDICATIONS: Please see below. ALLERGIES: Please see below. PHYSICAL EXAMINATION ON DISCHARGE: VITAL SIGNS: Please see below. GENERAL: Within normal limits HEENT: Holly extraocular muscles intact NECK: Supple CARDIOVASCULAR EXAMINATION: S1, S2, regular RESPIRATORY EXAMINATION: Clear to A&P ABDOMINAL EXAMINATION: , Soft, nontender, bowel sound present, no organomegaly EXTREMITIES: No clubbing, cyanosis,positive bilat LE edema SKIN: No rash NEUROLOGICAL EXAMINATION: . No focal motor sensory deficit PSYCHIATRIC EXAMINATION: Normal LABORATORY DATA: Please see below. IMAGING: CT abdomen and pelvis:1. Enterocolitis and a trace amount of free fluid in the abdomen. No abscess or perforated viscus. 2. Congenital malrotation of the bowel. No evidence for volvulus. 3. Fatty liver. Note: There was no evidence of any malignancy on the CT report which was extensively read PROGNOSIS: Good ACTIVITY: As tolerated. DIET: As tolerated DISCHARGE PLAN: Patient was advised to follow with GI in one week DISPOSITION: . Home DISCHARGE INSTRUCTIONS: 1. As per discharge instructions. ITEMS TO FOLLOWUP ON ON OUTPATIENT: 1. Follow with GI and PCP in one week. DISCHARGE CONDITION: Stable. TIME SPENT ON DISCHARGE: 45 minutes. Vital Signs/I&Os Vital Signs Date Time Temp Pulse Resp B/P (MAP) Pulse Ox O2 Delivery O2 Flow Rate FiO2 11/29/19 08:00 98.4 83 16 98/60 (73) 98 Room Air 11/27/19 04:00 2.0 I&O- Last 24 Hours up to 6 AM 11/29/19 06:00 Intake Total 1190 ml Output Total 575 ml Balance 615 ml Laboratory Data Labs 24H Laboratory Tests 2 11/29/19 06:43: Nucleated Red Blood Cells % (auto) 0.0, Neutrophils 74H, Band Neutrophils 2, Lymphocytes (Manual) 15L, Monocytes (Manual) 7H, Eosinophils (Manual) 1, Atypical Lymphocytes 1, Hypochromasia 2+, Anisocytosis 3+, Platelet Estimate NORMAL, Anion Gap 3L, Glomerular Filtration Rate > 60.0, Calcium Level 7.0L, Total Bilirubin 0.5#, Aspartate Amino Transf (AST/SGOT) 18, Alanine Aminotransferase (ALT/SGPT) 23, Alkaline Phosphatase 248H, Total Protein 3.8L, Albumin 1.0L, Albumin/Globulin Ratio 0.36L CBC/BMP Laboratory Tests 11/29/19 06:43 Microbiology Microbiology 11/26/19 Blood Culture - Preliminary, Resulted No Growth after 72 hours. All specime... 11/26/19 Blood Culture - Preliminary, Resulted No Growth after 72 hours. All specime... Discharge Medications Scheduled Ciprofloxacin HCl (Cipro) 500 Mg Tablet, 500 MG PO BID Metronidazole (Flagyl) 500 Mg Tablet, 500 MG PO BID Rivaroxaban (Xarelto) 15 Mg Tablet, 15 MG PO BID@0800,1800 Allergies Coded Allergies: morphine (Verified Allergy, Intermediate, hives, 11/26/19) YARELIS HAMILTON MD Nov 29, 2019 12:51
[2019-12-02 14:07] LABS: ANTI THROMBIN 3 ANTIGEN IMMUNO 32 % (72-124); ANTI THROMBIN 3 FUNCT ACTIVITY 51 % (75-135); PROTEIN C FUNCTIONAL ACTIVITY 38 % (73-180); PROTEIN S FUNCTIONAL ACTIVITY 40 % (63-140)
== END 2019-11-29 13:30 | disposition home or self-care (01) | DRG 197 ==
LOC: M ED 00:26 → M ED INP 04:22 → ENRESERV 05:29 → M PCU 06:14 → M PED 11-28 20:21
PROVIDERS: ADMIT Internal Medicine; ATTEND Internal Medicine
DX: I82.413 Acute embolism and thrombosis of femoral vein, bilateral (principal); I26.99 Other pulmonary embolism without acute cor pulmonale; K91.2 Postsurgical malabsorption, not elsewhere classified; F17.200 Nicotine dependence, unspecified, uncomplicated; K52.9 Noninfective gastroenteritis and colitis, unspecified; R63.4 Abnormal weight loss; Z98.84 Bariatric surgery status; Z90.49 Acquired absence of other specified parts of digestive tract; Z88.5 Allergy status to narcotic agent

== ENCOUNTER → 2020-02-24 | Outpatient (CLI) | payer OTHER ==
[~2020-02-24] MED LIST: CIPR-249 PO; FLAG500T PO; XARE15TA PO; XARE20TA PO; no home meds
--- NOTE | 2020-02-24 14:20 | REP ---
Bilateral lower extremity Duplex Doppler venous ultrasound: Real time compression and duplex Doppler interrogation of the bilateral lower extremity deep venous system is performed. Bilaterally, the common femoral, superficial femoral and popliteal veins are fully compressible with transducer pressure and demonstrate normal spontaneous and phasic flow, without evidence of deep venous thrombosis. Impression: No evidence of deep venous thrombosis of the bilateral lower extremity femoral popliteal venous system. Electronically Signed by Lorenzo Sterling MD 02/24/2020 02:11 P
== END ==
LOC: M RAD 12:52
PROVIDERS: ATTEND Physician Assistant
DX: R60.9 Edema, unspecified (principal); Z86.718 Personal history of other venous thrombosis and embolism

== ENCOUNTER → 2020-03-03 | Outpatient (REF) | payer OTHER ==
[2020-03-03 13:16] LABS: BASO # 0.1 10^3/uL (0.0-0.2); BASO % 1.1 % (0.0-1.0); EOS # 0.2 10^3/uL (0.0-0.5); EOS % 1.9 % (0.0-3.0); HEMATOCRIT 28.1 % (36.0-47.0); HEMOGLOBIN 7.8 g/dl (12.0-15.5); LYMPH # 2.5 10^3/uL (1.5-5.0); LYMPH % 28.4 % (24.0-44.0); MEAN CORPUSCULAR HEMOGLOBIN 22.1 pg (27.0-33.0); MEAN CORPUSCULAR HGB CONC 27.8 g/dl (32.0-36.5); MEAN CORPUSCULAR VOLUME 79.6 fl (80.0-96.0); MONO # 0.6 10^3/uL (0.0-0.8); MONO % 6.9 % (0.0-5.0); NEUTROPHILS # 5.4 10^3/uL (1.5-8.5); NEUTROPHILS % 61.2 % (36.0-66.0); PLATELET COUNT, AUTOMATED 298 10^3/uL (150-450); RED BLOOD COUNT 3.53 10^6/uL (4.00-5.40); WHITE BLOOD COUNT 8.8 10^3/uL (4.0-10.0)
[2020-03-03 13:18] LABS: HEMATOCRIT 27.7 % (36.0-47.0)
[2020-03-03 13:39] LABS: ALBUMIN 3.4 GM/DL (3.2-5.2); ALT/SGPT 23 U/L (12-78); BILIRUBIN,TOTAL 0.3 MG/DL (0.2-1.0); BLOOD UREA NITROGEN 16 MG/DL (7-18); CALCIUM LEVEL 8.8 MG/DL (8.5-10.1); CARBON DIOXIDE LEVEL 25 MEQ/L (21-32); CHLORIDE LEVEL 107 MEQ/L (98-107); CREATININE FOR GFR 0.47 MG/DL (0.55-1.30); FERRITIN 5 NG/ML (8-252); FREE T4 0.87 NG/DL (0.76-1.46); GLOMERULAR FILTRATION RATE > 60.0 (>58); GLUCOSE, FASTING 81 MG/DL (70-100); NT-PRO BNP 106 PG/ML (<125); POTASSIUM SERUM 4.1 MEQ/L (3.5-5.1); PTH INTACT 72.7 PG/ML (18.5-88.0); SODIUM LEVEL 137 MEQ/L (136-145); TOTAL 25(OH) VITAMIN D 22.1 NG/ML (30.0-100.0); TOTAL PROTEIN 6.7 GM/DL (6.4-8.2)
[2020-03-03 13:48] LABS: CREATININE,RANDOM URINE 19.6 MG/DL; TOTAL PROTEIN,RANDOM URINE 11.5 MG/DL (0.0-12.0)
[2020-03-03 14:02] LABS: MICROCYTOSIS 1+
[2020-03-03 14:03] LABS: HYPOCHROMASIA 2+; OVALOCYTES 1+; PLATELET ESTIMATE NORMAL (NORMAL)
== END ==
LOC: M LABDRWAD 12:14
PROVIDERS: ATTEND Family Medicine
DX: E43 Unspecified severe protein-calorie malnutrition (principal); Z86.711 Personal history of pulmonary embolism

== ENCOUNTER → 2020-03-04 | Outpatient (REF) | payer OTHER ==
[2020-03-06 00:06] LABS: ANTI THROMBIN 3 ANTIGEN IMMUNO 102 % (72-124); ANTI THROMBIN 3 FUNCT ACTIVITY 135 % (75-135); PROTEIN C FUNCTIONAL ACTIVITY 99 % (73-180); PROTEIN S FUNCTIONAL ACTIVITY 63 % (63-140)
[2020-03-06 11:05] LABS: DRVV SCREEN 48.7 SEC
[2020-03-06 11:07] LABS: PTT LUPUS TYPE ANTICOAG SCREEN 1.2 (0-1.2)
[2020-03-06 11:15] LABS: DRVV CONFIRM 46.1 SEC; LUPUS CONFIRM RATIO 1.2
== END ==
LOC: M LABDRWAD 12:14
PROVIDERS: ATTEND Family Medicine
DX: Z86.711 Personal history of pulmonary embolism (principal)

== ENCOUNTER 2020-03-05 11:30 | Outpatient (CLI) | payer OTHER ==
[2020-03-05] VITALS (7 sets, daily range): BP systolic 89–112; BP diastolic 53–64
[~2020-03-05] VITALS: Ht 157.5 cm; Wt 56.8 kg
[2020-03-05] MEDS ORDERED: ACETAMINOPHEN 500 MG TAB PO ONE (12:15)
[2020-03-05] MEDS ORDERED: diphenhydrAMINE 25MG CAP PO ONE (12:15)
[2020-03-05] MEDS ORDERED: FUROSEMIDE 20 MG TAB PO ONE (12:15)
== END 2020-03-05 16:30 | disposition home or self-care (01) ==
LOC: M INFU 11:30
PROVIDERS: ATTEND Physician Assistant
DX: D64.9 Anemia, unspecified (principal); Z88.5 Allergy status to narcotic agent
CPT/HCPCS: 36430; P9016

== ENCOUNTER → 2020-03-05 | Outpatient (CLI) | payer OTHER | LOC: M LAB 09:52 | PROVIDERS: ATTEND Physician Assistant | DX: D64.9 Anemia, unspecified (principal) ==

== ENCOUNTER → 2020-04-21 | Outpatient (REF) | payer OTHER ==
[2020-04-21 17:04] LABS: HEMATOCRIT 36.5 % (36.0-47.0); HEMOGLOBIN 10.4 g/dl (12.0-15.5); MEAN CORPUSCULAR HEMOGLOBIN 23.2 pg (27.0-33.0); MEAN CORPUSCULAR HGB CONC 28.5 g/dl (32.0-36.5); MEAN CORPUSCULAR VOLUME 81.3 fl (80.0-96.0); PLATELET COUNT, AUTOMATED 298 10^3/uL (150-450); RED BLOOD COUNT 4.49 10^6/uL (4.00-5.40); WHITE BLOOD COUNT 7.9 10^3/uL (4.0-10.0)
== END ==
LOC: M SFHCLACO 14:11
PROVIDERS: ATTEND Physician Assistant
DX: D50.9 Iron deficiency anemia, unspecified (principal); E43 Unspecified severe protein-calorie malnutrition

== ENCOUNTER → 2020-09-02 | Outpatient (REF) | payer OTHER ==
[2020-09-02 17:20] LABS: HEMATOCRIT 33.1 % (36.0-47.0); HEMOGLOBIN 9.2 g/dl (12.0-15.5); MEAN CORPUSCULAR HGB CONC 27.8 g/dl (32.0-36.5); MEAN CORPUSCULAR VOLUME 79.2 fl (80.0-96.0); PLATELET COUNT, AUTOMATED 297 10^3/uL (150-450); RED BLOOD COUNT 4.18 10^6/uL (4.00-5.40); WHITE BLOOD COUNT 8.7 10^3/uL (4.0-10.0)
[2020-09-02 17:38] LABS: BLOOD UREA NITROGEN 15 MG/DL (7-18); CALCIUM LEVEL 8.9 MG/DL (8.5-10.1); CARBON DIOXIDE LEVEL 27 MEQ/L (21-32); CHLORIDE LEVEL 110 MEQ/L (98-107); CREATININE FOR GFR 0.56 MG/DL (0.55-1.30); FERRITIN 6 NG/ML (8-252); GLOMERULAR FILTRATION RATE > 60.0 (>58); GLUCOSE, FASTING 81 MG/DL (70-100); IRON (FE) 13 UG/DL (50-170); PERCENT SATURATION 2.5 % (13.2-45.0); SODIUM LEVEL 140 MEQ/L (136-145); TOTAL IRON BINDING CAPACITY 530 UG/DL (250-450)
== END ==
LOC: M SFHCADAM 14:28
PROVIDERS: ATTEND Physician Assistant
DX: E43 Unspecified severe protein-calorie malnutrition (principal); D50.9 Iron deficiency anemia, unspecified

== ENCOUNTER → 2021-07-13 | Outpatient (REF) | payer OTHER ==
[2021-07-13 12:51] LABS: BLOOD UREA NITROGEN 15 MG/DL (7-18); CALCIUM LEVEL 7.7 MG/DL (8.5-10.1); CARBON DIOXIDE LEVEL 29 MEQ/L (21-32); CHLORIDE LEVEL 105 MEQ/L (98-107); GLOMERULAR FILTRATION RATE > 60.0 (>58); GLUCOSE, FASTING 71 MG/DL (70-100); HEMATOCRIT 39.2 % (36.0-47.0); HEMOGLOBIN 11.1 g/dl (12.0-15.5); MEAN CORPUSCULAR HEMOGLOBIN 20.5 pg (27.0-33.0); MEAN CORPUSCULAR HGB CONC 28.3 g/dl (32.0-36.5); MEAN CORPUSCULAR VOLUME 72.3 fl (80.0-96.0); PLATELET COUNT, AUTOMATED 398 10^3/uL (150-450); POTASSIUM SERUM 3.6 MEQ/L (3.5-5.1); RED BLOOD COUNT 5.42 10^6/uL (4.00-5.40); SODIUM LEVEL 139 MEQ/L (136-145); WHITE BLOOD COUNT 10.3 10^3/uL (4.0-10.0)
[2021-07-13 12:55] LABS: PERCENT SATURATION 8.5 % (13.2-45.0)
== END ==
LOC: M SFHCADAM 10:43
PROVIDERS: ATTEND Physician Assistant
DX: D50.9 Iron deficiency anemia, unspecified (principal); I89.0 Lymphedema, not elsewhere classified; Z79.899 Other long term (current) drug therapy

== ENCOUNTER 2021-07-30 10:18 | Inpatient (IN) | payer OTHER ==
[~2021-07-30] VITALS: Ht 157.5 cm; Wt 64.8 kg
[2021-07-30 11:07] LABS: HEMATOCRIT 33.2 % (36.0-47.0); HEMOGLOBIN 9.8 g/dl (12.0-15.5); MEAN CORPUSCULAR HEMOGLOBIN 21.4 pg (27.0-33.0); MEAN CORPUSCULAR HGB CONC 29.5 g/dl (32.0-36.5); MEAN CORPUSCULAR VOLUME 72.6 fl (80.0-96.0); PLATELET COUNT, AUTOMATED 309 10^3/uL (150-450); RED BLOOD COUNT 4.57 10^6/uL (4.00-5.40); WHITE BLOOD COUNT 6.2 10^3/uL (4.0-10.0)
[2021-07-30] MEDS ORDERED: BUPR1FIL SL (11:25)
[2021-07-30 11:37] LABS: ALT/SGPT 29 U/L (12-78); BILIRUBIN,DIRECT 0.2 MG/DL (0.0-0.2); BILIRUBIN,TOTAL 0.5 MG/DL (0.2-1.0); BLOOD UREA NITROGEN 18 MG/DL (7-18); CALCIUM LEVEL 7.6 MG/DL (8.5-10.1); CARBON DIOXIDE LEVEL 25 MEQ/L (21-32); CHLORIDE LEVEL 106 MEQ/L (98-107); CREATININE FOR GFR 0.21 MG/DL (0.55-1.30); GLOMERULAR FILTRATION RATE > 60.0 (>58); GLUCOSE, FASTING 93 MG/DL (70-100); POTASSIUM SERUM 4.4 MEQ/L (3.5-5.1); SODIUM LEVEL 137 MEQ/L (136-145); TOTAL PROTEIN 4.7 GM/DL (6.4-8.2)
[2021-07-30 11:57] LABS: ATYPICAL LYMPH 3 % (0-5); LYMPHOCYTES 15 % (16-44); MONOCYTES 3 % (0-5); NEUTROPHILS 63 % (28-66)
[2021-07-30 11:58] LABS: ANISOCYTOSIS 2+; HYPOCHROMASIA 2+; PLATELET ESTIMATE NORMAL (NORMAL)
[2021-07-30] MEDS ORDERED: ACETAMINOPHEN TAB 650MG DOSE (2X325MG) PO ONE (12:15)
[2021-07-30] MEDS ORDERED: ISOVUE-370 76% 100ML VIAL As Ordered ONE (12:15)
[2021-07-30 14:29] LABS: RSV AMPLIFICATION NEGATIVE (NEGATIVE)
[2021-07-30] MEDS ORDERED: FURO40TA2 PO (15:06)
[2021-07-30] MEDS ORDERED: ELIQ5TAB PO (15:06)
[2021-07-30] MEDS ORDERED: FURO20TA2 PO (15:06)
[2021-07-30] MEDS ORDERED: PERCOCET 5MG/325MG TAB PO PRN (15:40)
[2021-07-30] MEDS: D5W/0.9% SODIUM CHLORIDE 1,000 ML IV SCH (16:11)
[2021-07-30] MEDS ORDERED: HOME MED LIST COMPLETE! XX SCH (16:20)
[2021-07-30 16:53] LABS: MAGNESIUM LEVEL 2.2 MG/DL (1.8-2.4); PHOSPHORUS LEVEL 3.4 MG/DL (2.5-4.9)
[2021-07-30 16:54] LABS: INR 1.13; PROTHROMBIN TIME 14.9 SECONDS (12.7-14.5)
[2021-07-30 18:00] VITALS: BP 113/64
[2021-07-30] MEDS: PIPERACILLIN/TAZOBACTAM SOD 3.375 GM in D5W MINI-BAG PLUS 50 ML IV SCH (18:33)
[2021-07-30] MEDS: traMADol 50 MG TAB PO PRN (18:34)
[2021-07-30] MEDS: APIXABAN 5 MG TAB (ELIQUIS) PO SCH (21:03)
[2021-07-30] MEDS: PANTOPRAZOLE 40MG VIAL (C9113 PER 1) IV SCH (21:03)
[2021-07-30] MEDS: ACETAMINOPHEN TAB 650MG DOSE (2X325MG) PO PRN (21:16)
[2021-07-30 22:00] VITALS: BP 102/71
[2021-07-31] MEDS: PIPERACILLIN/TAZOBACTAM SOD 3.375 GM in D5W MINI-BAG PLUS 50 ML IV SCH ×5 (00:13→23:27)
[2021-07-31] MEDS: D5W/0.9% SODIUM CHLORIDE 1,000 ML IV SCH ×3 (03:11→14:35)
[2021-07-31 06:00] VITALS: BP 108/65
[2021-07-31] MEDS: traMADol 50 MG TAB PO PRN ×3 (06:06→20:38)
[2021-07-31 07:04] LABS: HEMATOCRIT 29.4 % (36.0-47.0); HEMOGLOBIN 8.7 g/dl (12.0-15.5); MEAN CORPUSCULAR HEMOGLOBIN 21.7 pg (27.0-33.0); MEAN CORPUSCULAR HGB CONC 29.6 g/dl (32.0-36.5); MEAN CORPUSCULAR VOLUME 73.3 fl (80.0-96.0); PLATELET COUNT, AUTOMATED 255 10^3/uL (150-450); RED BLOOD COUNT 4.01 10^6/uL (4.00-5.40); WHITE BLOOD COUNT 6.1 10^3/uL (4.0-10.0)
[2021-07-31 07:32] LABS: ALBUMIN 0.8 GM/DL (3.2-5.2); ALT/SGPT 24 U/L (12-78); BILIRUBIN,TOTAL 0.5 MG/DL (0.2-1.0); BLOOD UREA NITROGEN 15 MG/DL (7-18); CALCIUM LEVEL 7.1 MG/DL (8.5-10.1); CARBON DIOXIDE LEVEL 26 MEQ/L (21-32); CHLORIDE LEVEL 111 MEQ/L (98-107); CREATININE FOR GFR 0.19 MG/DL (0.55-1.30); GLOMERULAR FILTRATION RATE > 60.0 (>58); GLUCOSE, FASTING 96 MG/DL (70-100); POTASSIUM SERUM 4.1 MEQ/L (3.5-5.1); SODIUM LEVEL 142 MEQ/L (136-145); TOTAL PROTEIN 3.8 GM/DL (6.4-8.2)
[2021-07-31] MEDS ORDERED: INFLUENZA QUADRIVALENT PF VACCINE 0.5ML SYRINGE IM ONE (09:00)
[2021-07-31] MEDS: APIXABAN 5 MG TAB (ELIQUIS) PO SCH ×2 (09:06→20:37)
[2021-07-31] MEDS: PANTOPRAZOLE 40MG VIAL (C9113 PER 1) IV SCH ×2 (09:06→20:39)
[2021-07-31] MEDS: BUPRENORPHINE/NALOXONE 8-2MG SUBLINGUAL TABLET(SUBOXONE) SL SCH (09:06)
[2021-07-31] MEDS: ACETAMINOPHEN TAB 650MG DOSE (2X325MG) PO PRN ×2 (09:17→23:46)
[2021-07-31] MEDS: IRON SUCROSE 200 MG in NS 100 ML IV SCH (09:18)
[2021-07-31 14:00] VITALS: BP 95/62
[2021-07-31] MEDS ORDERED: ISOVUE-370 76% 100ML VIAL As Ordered ONE (15:20)
[2021-07-31 23:08] VITALS: BP 84/55
[2021-07-31 23:37] VITALS: BP 110/52
[2021-08-01 05:06] LABS: HEMATOCRIT 25.9 % (36.0-47.0); HEMOGLOBIN 7.8 g/dl (12.0-15.5); MEAN CORPUSCULAR HEMOGLOBIN 21.8 pg (27.0-33.0); MEAN CORPUSCULAR HGB CONC 30.1 g/dl (32.0-36.5); MEAN CORPUSCULAR VOLUME 72.5 fl (80.0-96.0); PLATELET COUNT, AUTOMATED 256 10^3/uL (150-450); RED BLOOD COUNT 3.57 10^6/uL (4.00-5.40); WHITE BLOOD COUNT 7.5 10^3/uL (4.0-10.0)
[2021-08-01 05:33] LABS: ALBUMIN 0.7 GM/DL (3.2-5.2); ALT/SGPT 22 U/L (12-78); BILIRUBIN,TOTAL 0.6 MG/DL (0.2-1.0); BLOOD UREA NITROGEN 12 MG/DL (7-18); CALCIUM LEVEL 6.9 MG/DL (8.5-10.1); CARBON DIOXIDE LEVEL 24 MEQ/L (21-32); CHLORIDE LEVEL 111 MEQ/L (98-107); CREATININE FOR GFR 0.28 MG/DL (0.55-1.30); GLOMERULAR FILTRATION RATE > 60.0 (>58); GLUCOSE, FASTING 96 MG/DL (70-100); MAGNESIUM LEVEL 1.9 MG/DL (1.8-2.4); POTASSIUM SERUM 3.6 MEQ/L (3.5-5.1); SODIUM LEVEL 141 MEQ/L (136-145); TOTAL PROTEIN 3.4 GM/DL (6.4-8.2)
[2021-08-01 05:39] LABS: ATYPICAL LYMPH 1 % (0-5); EOSINOPHILS 1 % (0-3); LYMPHOCYTES 19 % (16-44); MONOCYTES 1 % (0-5); NEUTROPHILS 74 % (28-66)
[2021-08-01 05:41] LABS: HYPOCHROMASIA 1+
[2021-08-01 05:42] LABS: ANISOCYTOSIS 2+; MICROCYTOSIS 2+; PLATELET ESTIMATE NORMAL (NORMAL)
[2021-08-01] MEDS: PIPERACILLIN/TAZOBACTAM SOD 3.375 GM in D5W MINI-BAG PLUS 50 ML IV SCH ×3 (05:57→17:44)
[2021-08-01] MEDS: traMADol 50 MG TAB PO PRN ×3 (06:57→20:59)
[2021-08-01] MEDS: ACETAMINOPHEN TAB 650MG DOSE (2X325MG) PO PRN (09:24)
[2021-08-01] MEDS: APIXABAN 5 MG TAB (ELIQUIS) PO SCH ×2 (09:24→20:42)
[2021-08-01] MEDS: IRON SUCROSE 200 MG in NS 100 ML IV SCH (09:25)
[2021-08-01] MEDS: BUPRENORPHINE/NALOXONE 8-2MG SUBLINGUAL TABLET(SUBOXONE) SL SCH (09:25)
[2021-08-01] MEDS: PANTOPRAZOLE 40MG VIAL (C9113 PER 1) IV SCH ×2 (09:25→20:41)
[2021-08-01] MEDS: D5W/0.9% SODIUM CHLORIDE 1,000 ML IV SCH ×3 (12:05→20:42)
[2021-08-01 14:00] VITALS: BP 99/55
[2021-08-01] MEDS: PERCOCET 5MG/325MG TAB PO PRN (18:40)
[2021-08-01] MEDS: MULTIVITAMINS/MINERALS THERAP 1 TAB PO SCH (20:42)
[2021-08-01] MEDS: BISACODYL 5 MG TAB PO PRN (20:42)
[2021-08-02] VITALS (10 sets, daily range): BP systolic 97–110; BP diastolic 57–91
[2021-08-02] MEDS: PIPERACILLIN/TAZOBACTAM SOD 3.375 GM in D5W MINI-BAG PLUS 50 ML IV SCH ×4 (00:24→18:25)
[2021-08-02] MEDS: PERCOCET 5MG/325MG TAB PO PRN ×3 (00:44→21:03)
[2021-08-02] MEDS: traMADol 50 MG TAB PO PRN ×3 (03:35→18:26)
[2021-08-02 05:56] LABS: HEMOGLOBIN 7.6 g/dl (12.0-15.5); MEAN CORPUSCULAR HEMOGLOBIN 21.8 pg (27.0-33.0); MEAN CORPUSCULAR HGB CONC 29.2 g/dl (32.0-36.5); MEAN CORPUSCULAR VOLUME 74.7 fl (80.0-96.0); PLATELET COUNT, AUTOMATED 288 10^3/uL (150-450); RED BLOOD COUNT 3.48 10^6/uL (4.00-5.40); WHITE BLOOD COUNT 6.5 10^3/uL (4.0-10.0)
[2021-08-02 06:20] LABS: ALBUMIN 0.7 GM/DL (3.2-5.2); ALT/SGPT 25 U/L (12-78); BILIRUBIN,TOTAL 0.7 MG/DL (0.2-1.0); BLOOD UREA NITROGEN 9 MG/DL (7-18); CALCIUM LEVEL 6.9 MG/DL (8.5-10.1); CARBON DIOXIDE LEVEL 23 MEQ/L (21-32); CHLORIDE LEVEL 112 MEQ/L (98-107); CREATININE FOR GFR 0.26 MG/DL (0.55-1.30); GLOMERULAR FILTRATION RATE > 60.0 (>58); GLUCOSE, FASTING 95 MG/DL (70-100); POTASSIUM SERUM 3.4 MEQ/L (3.5-5.1); SODIUM LEVEL 142 MEQ/L (136-145); TOTAL PROTEIN 3.6 GM/DL (6.4-8.2)
[2021-08-02 06:51] LABS: EOSINOPHILS 1 % (0-3); LYMPHOCYTES 16 % (16-44); METAMYELOCYTES 1 % (0-0); MONOCYTES 6 % (0-5); NEUTROPHILS 71 % (28-66)
[2021-08-02 06:52] LABS: HYPOCHROMASIA 1+; PLATELET ESTIMATE NORMAL (NORMAL)
[2021-08-02 06:53] LABS: ANISOCYTOSIS 1+; MICROCYTOSIS 1+
[2021-08-02] MEDS: D5W/0.9% SODIUM CHLORIDE 1,000 ML IV SCH ×2 (06:56→13:38)
[2021-08-02] MEDS ORDERED: POTASSIUM CHLORIDE 10MEQ SR TABLET PO ONE (08:30)
[2021-08-02 09:08] LABS: LIPASE 34 U/L (73-393)
[2021-08-02] MEDS: MULTIVITAMINS/MINERALS THERAP 1 TAB PO SCH ×2 (09:08→21:02)
[2021-08-02] MEDS: APIXABAN 5 MG TAB (ELIQUIS) PO SCH ×2 (09:08→21:02)
[2021-08-02] MEDS: PANTOPRAZOLE 40MG VIAL (C9113 PER 1) IV SCH ×2 (09:09→21:02)
[2021-08-02] MEDS: IRON SUCROSE 200 MG in NS 100 ML IV SCH (09:09)
[2021-08-02] MEDS: BUPRENORPHINE/NALOXONE 8-2MG SUBLINGUAL TABLET(SUBOXONE) SL SCH (09:20)
[2021-08-02] MEDS: BISACODYL 5 MG TAB PO PRN (09:21)
[2021-08-03] VITALS (9 sets, daily range): BP systolic 100–112; BP diastolic 62–71
[2021-08-03] MEDS: PIPERACILLIN/TAZOBACTAM SOD 3.375 GM in D5W MINI-BAG PLUS 50 ML IV SCH ×3 (00:31→11:53)
[2021-08-03] MEDS: traMADol 50 MG TAB PO PRN ×3 (00:32→13:56)
[2021-08-03] MEDS: D5W/0.9% SODIUM CHLORIDE 1,000 ML IV SCH ×2 (02:35→16:18)
[2021-08-03] MEDS: PERCOCET 5MG/325MG TAB PO PRN ×4 (04:04→20:05)
[2021-08-03 06:35] LABS: HEMATOCRIT 28.9 % (36.0-47.0); HEMOGLOBIN 8.9 g/dl (12.0-15.5); MEAN CORPUSCULAR HEMOGLOBIN 23.7 pg (27.0-33.0); MEAN CORPUSCULAR HGB CONC 30.8 g/dl (32.0-36.5); MEAN CORPUSCULAR VOLUME 76.9 fl (80.0-96.0); PLATELET COUNT, AUTOMATED 294 10^3/uL (150-450); RED BLOOD COUNT 3.76 10^6/uL (4.00-5.40); WHITE BLOOD COUNT 5.1 10^3/uL (4.0-10.0)
[2021-08-03 07:02] LABS: ALT/SGPT 26 U/L (12-78); BLOOD UREA NITROGEN 8 MG/DL (7-18); CALCIUM LEVEL 7.3 MG/DL (8.5-10.1); CARBON DIOXIDE LEVEL 24 MEQ/L (21-32); CHLORIDE LEVEL 115 MEQ/L (98-107); CREATININE FOR GFR 0.18 MG/DL (0.55-1.30); GLOMERULAR FILTRATION RATE > 60.0 (>58); GLUCOSE, FASTING 78 MG/DL (70-100); POTASSIUM SERUM 3.7 MEQ/L (3.5-5.1); SODIUM LEVEL 142 MEQ/L (136-145)
[2021-08-03 07:03] LABS: ALBUMIN 0.7 GM/DL (3.2-5.2); ANISOCYTOSIS 2+; BILIRUBIN,TOTAL 0.7 MG/DL (0.2-1.0); EOSINOPHILS 2 % (0-3); HYPOCHROMASIA 2+; LYMPHOCYTES 20 % (16-44); MONOCYTES 9 % (0-5); NEUTROPHILS 58 % (28-66); PLATELET ESTIMATE NORMAL (NORMAL); TOTAL PROTEIN 3.7 GM/DL (6.4-8.2)
[2021-08-03 07:04] LABS: OVALOCYTES 1+
[2021-08-03] MEDS: MULTIVITAMINS/MINERALS THERAP 1 TAB PO SCH ×2 (10:13→21:40)
[2021-08-03] MEDS: APIXABAN 5 MG TAB (ELIQUIS) PO SCH ×2 (10:13→21:40)
[2021-08-03] MEDS: PANTOPRAZOLE 40MG VIAL (C9113 PER 1) IV SCH ×2 (10:14→21:40)
[2021-08-03] MEDS: BUPRENORPHINE/NALOXONE 8-2MG SUBLINGUAL TABLET(SUBOXONE) SL SCH (11:52)
[2021-08-03] MEDS ORDERED: NS 1,000 ML IV SCH (12:40)
[2021-08-03] MEDS ORDERED: EPINEPHrine INJ 1 MG/ML 1ML AMP IM PRN (12:40)
[2021-08-03] MEDS ORDERED: ALBUTEROL 90 MCG/ACT 8GM HFA INHALER INH PRN (12:40)
[2021-08-03] MEDS ORDERED: ALBUTEROL SULFATE 2.5 MG/0.5 ML INH NEB SOLN INH PRN (12:40)
[2021-08-03] MEDS ORDERED: diphenhydrAMINE 50MG/ML VIAL (J1200) IV PRN (12:40)
[2021-08-03] MEDS ORDERED: methylPREDNISolone 125MG 2ML VIAL IV PRN (12:40)
[2021-08-03] MEDS ORDERED: CASIRIVIMAB/IMDEVIMAB 1,200 MG in NS 250 ML IV ONE (14:00)
[2021-08-03] MEDS: CIPROFLOXACIN 400 MG in IV 1 EA IV SCH (17:47)
[2021-08-03] MEDS: metroNIDAZOLE 500 MG in IV 1 EA IV SCH (20:06)
[2021-08-04] VITALS (8 sets, daily range): BP systolic 98–115; BP diastolic 60–76
[2021-08-04] MEDS: PERCOCET 5MG/325MG TAB PO PRN ×5 (01:58→20:25)
[2021-08-04] MEDS: metroNIDAZOLE 500 MG in IV 1 EA IV SCH ×3 (04:18→21:36)
[2021-08-04] MEDS: CIPROFLOXACIN 400 MG in IV 1 EA IV SCH ×2 (05:17→19:28)
[2021-08-04] MEDS: traMADol 50 MG TAB PO PRN ×3 (05:21→19:27)
[2021-08-04 06:21] LABS: HEMOGLOBIN 9.7 g/dl (12.0-15.5); MEAN CORPUSCULAR HEMOGLOBIN 23.7 pg (27.0-33.0); MEAN CORPUSCULAR HGB CONC 30.3 g/dl (32.0-36.5); MEAN CORPUSCULAR VOLUME 78.2 fl (80.0-96.0); PLATELET COUNT, AUTOMATED 387 10^3/uL (150-450); RED BLOOD COUNT 4.09 10^6/uL (4.00-5.40); WHITE BLOOD COUNT 4.7 10^3/uL (4.0-10.0)
[2021-08-04 07:09] LABS: ALBUMIN 0.7 GM/DL (3.2-5.2); ALT/SGPT 37 U/L (12-78); BILIRUBIN,TOTAL 0.8 MG/DL (0.2-1.0); BLOOD UREA NITROGEN 7 MG/DL (7-18); CALCIUM LEVEL 7.1 MG/DL (8.5-10.1); CARBON DIOXIDE LEVEL 20 MEQ/L (21-32); CHLORIDE LEVEL 113 MEQ/L (98-107); CREATININE FOR GFR 0.18 MG/DL (0.55-1.30); GLOMERULAR FILTRATION RATE > 60.0 (>58); GLUCOSE, FASTING 99 MG/DL (70-100); POTASSIUM SERUM 3.4 MEQ/L (3.5-5.1); SODIUM LEVEL 141 MEQ/L (136-145); TOTAL PROTEIN 4.2 GM/DL (6.4-8.2)
[2021-08-04 07:23] LABS: ATYPICAL LYMPH 1 % (0-5); BASOPHILS 3 % (0-1); LYMPHOCYTES 20 % (16-44); METAMYELOCYTES 1 % (0-0); MONOCYTES 8 % (0-5); NEUTROPHILS 59 % (28-66); PLATELET ESTIMATE NORMAL (NORMAL)
[2021-08-04 07:24] LABS: ANISOCYTOSIS 1+; HYPOCHROMASIA 1+; MICROCYTOSIS 1+; POIKILOCYTOSIS 1+; TARGET CELLS 1+
[2021-08-04] MEDS: D5W/0.9% SODIUM CHLORIDE 1,000 ML IV SCH ×3 (08:35→20:29)
[2021-08-04] MEDS: POTASSIUM CHLORIDE 10MEQ SR TABLET PO ONE ×2 (08:46→10:00)
[2021-08-04] MEDS: MULTIVITAMINS/MINERALS THERAP 1 TAB PO SCH ×2 (08:46→20:20)
[2021-08-04] MEDS: PANTOPRAZOLE 40MG VIAL (C9113 PER 1) IV SCH ×2 (08:46→20:20)
[2021-08-04] MEDS: APIXABAN 5 MG TAB (ELIQUIS) PO SCH ×2 (08:46→20:20)
[2021-08-04] MEDS: BUPRENORPHINE/NALOXONE 8-2MG SUBLINGUAL TABLET(SUBOXONE) SL SCH (08:47)
[2021-08-05] VITALS (11 sets, daily range): BP systolic 108–121; BP diastolic 67–69
[2021-08-05] MEDS: PERCOCET 5MG/325MG TAB PO PRN ×5 (00:29→23:41)
[2021-08-05] MEDS: D5W/0.9% SODIUM CHLORIDE 1,000 ML IV SCH ×2 (04:35→14:35)
[2021-08-05] MEDS: traMADol 50 MG TAB PO PRN ×3 (05:12→18:18)
[2021-08-05] MEDS: metroNIDAZOLE 500 MG in IV 1 EA IV SCH ×3 (05:12→20:02)
[2021-08-05 06:46] LABS: HEMATOCRIT 28.5 % (36.0-47.0); HEMOGLOBIN 8.6 g/dl (12.0-15.5); MEAN CORPUSCULAR HGB CONC 30.2 g/dl (32.0-36.5); MEAN CORPUSCULAR VOLUME 79.6 fl (80.0-96.0); PLATELET COUNT, AUTOMATED 446 10^3/uL (150-450); RED BLOOD COUNT 3.58 10^6/uL (4.00-5.40); WHITE BLOOD COUNT 4.3 10^3/uL (4.0-10.0)
[2021-08-05 07:01] LABS: ALBUMIN 1.7 GM/DL (3.2-5.2); ALT/SGPT 30 U/L (12-78); BILIRUBIN,TOTAL 0.7 MG/DL (0.2-1.0); BLOOD UREA NITROGEN 5 MG/DL (7-18); CALCIUM LEVEL 7.3 MG/DL (8.5-10.1); CARBON DIOXIDE LEVEL 23 MEQ/L (21-32); CHLORIDE LEVEL 112 MEQ/L (98-107); CREATININE FOR GFR 0.19 MG/DL (0.55-1.30); GLOMERULAR FILTRATION RATE > 60.0 (>58); GLUCOSE, FASTING 86 MG/DL (70-100); MAGNESIUM LEVEL 1.9 MG/DL (1.8-2.4); POTASSIUM SERUM 3.1 MEQ/L (3.5-5.1); SODIUM LEVEL 142 MEQ/L (136-145); TOTAL PROTEIN 4.3 GM/DL (6.4-8.2)
[2021-08-05] MEDS: CIPROFLOXACIN 400 MG in IV 1 EA IV SCH ×2 (07:03→18:17)
[2021-08-05 07:08] LABS: ATYPICAL LYMPH 4 % (0-5); LYMPHOCYTES 11 % (16-44); MONOCYTES 11 % (0-5); NEUTROPHILS 72 % (28-66); PLATELET ESTIMATE INCREASED (NORMAL)
[2021-08-05 07:09] LABS: ANISOCYTOSIS 3+; HYPOCHROMASIA 2+; MICROCYTOSIS 1+; POIKILOCYTOSIS 1+; POLYCHROMASIA 1+
[2021-08-05] MEDS ORDERED: POTASSIUM CHLORIDE 10% LIQ 20 MEQ/15 ML UDC PO ONE (08:00)
[2021-08-05] MEDS ORDERED: KCL 10MEQ/100ML SWI (KRUN) 10 MEQ in IV 1 EA IV ONE (08:00)
[2021-08-05] MEDS: MULTIVITAMINS/MINERALS THERAP 1 TAB PO SCH ×2 (08:39→20:02)
[2021-08-05] MEDS: BUPRENORPHINE/NALOXONE 8-2MG SUBLINGUAL TABLET(SUBOXONE) SL SCH (08:39)
[2021-08-05] MEDS: APIXABAN 5 MG TAB (ELIQUIS) PO SCH ×2 (08:40→20:03)
[2021-08-05] MEDS: PANTOPRAZOLE 40MG VIAL (C9113 PER 1) IV SCH ×2 (08:40→20:02)
[2021-08-05] MEDS ORDERED: ONDANSETRON 4 MG ORAL DISINTEGRATING TAB PO PRN (09:10)
[2021-08-05 11:54] LABS: ERYTHROCYTE SEDIMENTATION RATE 18 mm/hr (0-20)
[2021-08-05 13:00] LABS: C REACTIVE PROTEIN QUANTITATIV 3.27 MG/DL (0.00-0.30)
[2021-08-05 23:05] LABS: TOTAL PROTEIN 24 HOUR URINE 230.1 MG/24HR (50-150); URINE TOTAL PROTEIN 35.4 MG/DL (0-12)
[2021-08-06 00:25] VITALS: BP 109/65
[2021-08-06] MEDS: traMADol 50 MG TAB PO PRN (00:48)
[2021-09-04] MEDS ORDERED: [UNRECOGNIZED DRUG - CODE] PO (15:23)
[2021-09-23] MEDS ORDERED: POTA-151 PO (17:49)
== END 2021-08-06 01:04 | disposition short-term general hospital (02) | DRG 249 ==
LOC: EDBD 10:18 → M ED 10:18 → M ED INP 15:28 → ENRESERV 17:03 → M MSPAV 18:13
PROVIDERS: ADMIT Internal Medicine; ATTEND Internal Medicine
PROC: 30233J1 Transfusion of Nonautologous Serum Albumin into Peripheral Vein, Percutaneous Approach (ICD-10-PCS; principal; 2021-08-04)
DX: K52.9 Noninfective gastroenteritis and colitis, unspecified (principal); E43 Unspecified severe protein-calorie malnutrition; K91.2 Postsurgical malabsorption, not elsewhere classified; Z68.1 Body mass index [BMI] 19.9 or less, adult; D50.9 Iron deficiency anemia, unspecified; F17.200 Nicotine dependence, unspecified, uncomplicated; R64 Cachexia; M72.2 Plantar fascial fibromatosis; R53.1 Weakness; M62.50 Muscle wasting and atrophy, not elsewhere classified, unspecified site; Z98.84 Bariatric surgery status; Z20.822 Contact with and (suspected) exposure to COVID-19; Z90.49 Acquired absence of other specified parts of digestive tract; Z79.01 Long term (current) use of anticoagulants; Z79.899 Other long term (current) drug therapy; Z86.718 Personal history of other venous thrombosis and embolism; Z86.711 Personal history of pulmonary embolism; Z88.5 Allergy status to narcotic agent

== ENCOUNTER 2021-08-31 13:05 | Inpatient (IN) | payer OTHER ==
[~2021-08-31] VITALS: Ht 154.9 cm; Wt 56.5 kg
[~2021-08-31 13:05] MED LIST changes: +BUPR1FIL SL; +ELIQ5TAB PO; +FURO20TA2 PO; +FURO40TA2 PO
[2021-08-31 13:51] LABS: BASO # 0.1 10^3/uL (0.0-0.2); BASO % 0.4 % (0.0-1.0); EOS % 0.3 % (0.0-3.0); HEMATOCRIT 43.2 % (36.0-47.0); HEMOGLOBIN 13.8 g/dl (12.0-15.5); LYMPH # 2.4 10^3/uL (1.5-5.0); LYMPH % 16.8 % (24.0-44.0); MEAN CORPUSCULAR HEMOGLOBIN 30.2 pg (27.0-33.0); MEAN CORPUSCULAR HGB CONC 31.9 g/dl (32.0-36.5); MEAN CORPUSCULAR VOLUME 94.5 fl (80.0-96.0); MONO # 0.8 10^3/uL (0.0-0.8); MONO % 5.6 % (2.0-8.0); NEUTROPHILS # 10.8 10^3/uL (1.5-8.5); PLATELET COUNT, AUTOMATED 237 10^3/uL (150-450); RED BLOOD COUNT 4.57 10^6/uL (4.00-5.40); WHITE BLOOD COUNT 14.2 10^3/uL (4.0-10.0)
[2021-08-31 14:22] LABS: ERYTHROCYTE SEDIMENTATION RATE 1 mm/hr (0-20)
--- NOTE | 2021-08-31 14:22 | REP ---
INDICATION: edema. COMPARISON: 07/30/2021. TECHNIQUE: Single portable AP view of the chest was performed. FINDINGS: There is no acute infiltrate or pulmonary edema. Lungs are clear. The heart is not significantly enlarged. The mediastinal silhouette is unremarkable. The visualized osseous structures are intact. IMPRESSION: No acute pulmonary disease. <Electronically signed by Lorenzo Sterling > 08/31/21 [id number]
[2021-08-31] MEDS ORDERED: NS 500 ML IV ONE (15:00)
[2021-08-31] MEDS ORDERED: GABAPENTIN 100 MG CAP PO ONE ×2 (15:00→19:50)
[2021-08-31 15:30] LABS: RSV AMPLIFICATION NEGATIVE (NEGATIVE)
[2021-08-31 16:34] LABS: ALBUMIN 1.3 GM/DL (3.2-5.2); ALT/SGPT 75 U/L (12-78); BILIRUBIN,DIRECT 0.1 MG/DL (0.0-0.2); BILIRUBIN,TOTAL 0.5 MG/DL (0.2-1.0); BLOOD UREA NITROGEN 38 MG/DL (7-18); C REACTIVE PROTEIN QUANTITATIV 2.26 MG/DL (0.00-0.30); CALCIUM LEVEL 7.6 MG/DL (8.5-10.1); CARBON DIOXIDE LEVEL 23 MEQ/L (21-32); CHLORIDE LEVEL 108 MEQ/L (98-107); CK-MB VALUE MASS 1.5 NG/ML (<3.6); CPK CREATINE PHOSPHOKINASE 44 U/L (26-192); CREATININE FOR GFR 0.43 MG/DL (0.55-1.30); GLOMERULAR FILTRATION RATE > 60.0 (>58); GLUCOSE, FASTING 83 MG/DL (70-100); HIV 1&2 SCREEN CENTAUR NEGATIVE (NEGATIVE); LIPASE < 10 U/L (73-393); MB/CK RELATIVE INDEX 3.41 (< OR =4); POTASSIUM SERUM 5.8 MEQ/L (3.5-5.1); SODIUM LEVEL 137 MEQ/L (136-145); TOTAL PROTEIN 3.9 GM/DL (6.4-8.2); TROPONIN I < 0.02 NG/ML (< 0.10); VITAMIN B12 LEVEL 1033 PG/ML (247-911)
[2021-08-31] MEDS ORDERED: cefTRIAXone SOD 2 GM in D5W MINI-BAG PLUS 50 ML IV ONE (17:25)
[2021-08-31] MEDS ORDERED: MULT400T10 PO (17:51)
[2021-08-31] MEDS ORDERED: FERR325T3 PO (17:51)
[2021-08-31] MEDS ORDERED: ERGO500029 PO (17:51)
[2021-08-31] MEDS ORDERED: HOME MED LIST COMPLETE! XX SCH (17:55)
[2021-08-31] MEDS: APIXABAN 5 MG TAB (ELIQUIS) PO SCH (21:00)
[2021-08-31] MEDS: FERROUS SULFATE 325MG TAB PO SCH (21:00)
--- NOTE | 2021-08-31 21:58 | ECGEPIP ---
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
--- NOTE | 2021-08-31 22:50 | HPEPDOC ---
[facility] Medical History & Physical Date of Admission Aug 31, 2021 Date of Service: Aug 31, 2021 Primary Care Physician: Cathleen Smith PA-C, LAC Attending Physician: MCKINLEY FORREST MD History and Physical CHIEF COMPLAINT:burning pain HISTORY OF PRESENT ILLNESS: is a 46yo female w/ an extensive PMHx most notable for malnutrition and severe hypoalbuminemia, diarrhea, and microcytic anemia s/p bypass sx, B/l DVT & PE (11/2019) on eliquis, PVD, and significant recent deconditioning, who presented to the ED on 08/31/21 via EMS c/o whole body burning pain that is very sensitive to touch and most prominent over lower extremities, as well as overall debility. Patient was admitted to [facility] just last month from for abdominal pain with imaging findings consistent with enteritis, malnutrition/mall absorption/generalized weakness. There was a concern for an acute GI infection based on an elevated procalcitonin and patient was treated with IV ciprofloxacin and Flagyl. She also received albumin infusion for 2 days (1 g/kg). Per reports, the patient had been noncompliant with her gastric bypass surgeon as outpatient. Due to her considerable malnutrition/malabsorption issues in the setting of the abdominal pain and enteritis, gastroenterology evaluation was deemed warranted. At the time patient was admitted, [facility] did not have GI coverage and so patient was subsequently transferred on 08/05 to [facility] for for gastroenterology evaluation. In [facility], patient underwent an EGD and colonoscopy that were essentially unremarkable. Laboratory findings suggested severe vitamin D deficiency. A bosom presser was consulted and patient was recommended to begin supplementation with B12, vitamin D, calcium, multivitamin, and iron supplementation. Patient was also hypokalemic and that was thought to be secondary to home oral furosemide for lower extremity edema. Ultimately the etiology of her severe hypoalbuminemia was unclear at [facility] with consideration for protein-losing enteropathy, severe malnutrition, protein- losing nephropathy, or heart failure. Upon discharge home from [place], patient has yet to follow-up with a local bosom presser or her PCP. Patient has multiple complaints today upon evaluation which include: Bilateral lower extremity edema that has been present for the past 3 months (RLE > LLE last few days), erythema of bilateral feet most prominent over the plantar aspect that has been present for the past week, whole-body intense "burning" pain for the past 3-4 days that is most intense over lower extremities, b/l hand swelling/erythema/skin peeling over the past 3-4 days, dysphagia and odynophagia over the past few weeks that has limited her to only fluids and soft foods for the past 2 weeks, widespread hair loss for the past 3 months, and both dry eyes and dry mouth for the past month. She has had a significant progressive immobility since coming back from [place] and currently has only been moving for the past 2 weeks between her bed and bathroom with the assistance of her son. PAST MEDICAL/SURGICAL HISTORY: Severe hypoalbuminemia/malabsorption/malnutrition/microcytic anemia/diarrhea status post 2009 Lila-en-Y gastric bypass surgery -Surgery was done by Dr. Roper in [place]; patient reports following with Dr. Roper through 2014; multiple recent documentation states patient has been noncompliant with most recent follow-ups/supplementation Bilateral DVT and PE in December 09 -Right occlusive DVT of femoral vein upper mid thigh -Left lower extremity DVT completely occluding left femoral/popliteal vein -Bilateral PE via 11/26/2019 CTA chest (anterior segment of right upper lobe, lateral segment of right lower lobe, and anteromedial and lateral segments of the left lower lobe; no evidence for RV strain) History of peptic ulcers Bilateral plantar fasciitis Opioid use disorder, taking Suboxone as outpatient for the past 2 years (follows with [facility] in [place]) Lila-en-Y gastric bypass surgery, 2009 Incisional hernia repair x4 Cholecystectomy Appendectomy EGD with cauterization of ulcers SOCIAL HISTORY: Patient has 3 children and 1 grandchild. One of her children, an 18-year-old son, lives with her in [place]. She is a former smoker who smoked at roughly half a pack per day for 20 years stopping in June 2021 (roughly [id number] history) Patient denies any current or former alcohol use. Patient does have reported opioid use disorder after her gastric bypass surgery and has been taking buprenorphine as outpatient for the past 2 years. She denies any other illegal or IV drug use history. Patient has been unemployed for the past 4 months due to her myriad medical issues and associated debility. 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 FAMILY HISTORY: Father: Living, hypertension /Mother: Living, hyperlipidemia /1 brother and 1 sister with no known significant medical history ALLERGIES: Please see below. REVIEW OF SYSTEMS: CONSTITUTIONAL: Denies fever, chills, night sweats HEENT: Dysphagia and odynophagia as described above in HPI. Denies any jaw pain. CARDIOVASCULAR: Denies chest pain, chest pressure, or palpitations RESPIRATORY: Reports inability to take deep breaths secondary to significant diffuse body pain. Denies recent cough or shortness of breath. GASTROINTESTINAL: Reports baseline nonbloody soft stools. Reports some abdominal pain that is associated with her full body "burning" pain. Denies any nausea or vomiting. GENITOURINARY: Denies dysuria, hematuria, or flank pain SKIN: Please see HPI. MUSCULOSKELETAL: Diffuse burning pain as described in HPI. NEUROLOGICAL: Reports diffuse burning pain as described in HPI. Denies any loss of bowel or bladder control. HEMATOLOGIC: Reports easy bruising as her baseline as she is on Eliquis. LYMPHATIC: Denies any new lumps or bumps. HOME MEDICATIONS: Please see below. PHYSICAL EXAMINATION: VITAL SIGNS: Temperature 97.9, pulse 90, respiratory rate 16, blood pressure 92/62, pulse oximetry 98% on room air. GENERAL APPEARANCE: Ill-appearing female lying upright in ED bed. She appears older than stated age. HEENT: Loss of hair over the vertex of the scalp. Normocephalic. Atraumatic. Noninjected, anicteric sclera. PERRLA. EOMI. Mild conjunctival pallor. There is oral labial scattered erythema with dry lips and possible angular Kalosis. Oral cavity: There appears to be some scant white exudates scattered across the posterior pharynx. There is no significant pharyngeal erythema appreciated. Quite poor dentition with multiple visualized dental caries. Dry mucous membranes. Neck: Tense scalene musculature. No lymphadenopathy appreciated. Chest: Patient's upper body appears cachectic with signs of wasting in neck and pectoral musculature. CARDIOVASCULAR: Borderline tachycardic rate, regular rhythm. Normal S1, S2. No significant murmurs appreciated. LUNGS: Patient is unable to take deep breaths secondary to generalized pain. From what was auscultated, no significant adventitious breath sounds were appreciated. No conversational dyspnea. No significant accessory muscle use visualized. Symmetric chest expansion. Breathing room air. ABDOMEN: Soft, nondistended and somewhat sunken abdomen. Exquisitely tender to e paulette light touch making thorough accurate abdominal exam quite difficult. Guarding with no rigidity appreciated. Multiple healed incisional scars over abdomen. Normoactive bowel sounds throughout. MUSCULOSKELETAL: She is unable to lift bilateral lower extremities off the bed. Full range of motion of upper extremities. EXTREMITIES: There is bilateral lower extremity pitting edema; extent of edema unable to be assessed fully due to patient's exquisite tenderness. There is erythema of bilateral palms and fingers with visualized skin peeling of both thumbs. White discoloration/leukonychia of nailbeds on bilateral hands. There is increased erythema over plantar aspect of bilateral feet, more prominent left vs right. 2+ radial pulses bilaterally. NEUROLOGICAL: Alert and oriented x3. No gross focal neurologic deficits appreciated. Hyperesthesia/exquisitely tender to any light touch of any of her extremities or torso. Nondysarthric speech. PSYCHIATRIC: Exasperated mood. Appropriate appearing affect. LABORATORY DATA: Please see below. IMAGING: Portable chest x-ray, 08/31/2021 FINDINGS: There is no acute infiltrate or pulmonary edema. Lungs are clear. The heart is not significantly enlarged. The mediastinal silhouette is unremarkable. The visualized osseous structures are intact. IMPRESSION: No acute pulmonary disease. MICROBIOLOGY: Please see below. ASSESSMENT & PLAN: This is a 46yo female w/ h/o severe hypoalbuminemia/malabsorption/malnutrition s/p gastric bypass, bilateral DVTs and PE on Eliquis, peptic ulcer disease, who presented to the ED on 08/31 via EMS for intense whole body "burning" pain as well as significant debility. She had positive SIRS criteria with hypotension, lactic acidosis, and leukocytosis and was admitted for sepsis work-up and evalua tion for nutritional deficiencies and possible underlying autoimmune/neoplastic process. #Positive SIRS criteria with suspicion for sepsis -Patient presented with hypotension (92/62), tachycardia (HR 100 on ED px), leukocytosis with absolute neutrophilia (WBC 14.2), lactic acidosis (initial value 3.0), and mildly elevated CRP (2.26) -Source unclear at this time -chest x-ray unremarkable for any acute process; 2 blood cultures were obtained in the ED and are pending; UA with reflex culture ordered -s/p one-time Rocephin dose and 500 cc bolus in the ED; 1 L bolus ordered upon admission; repeat lactic acid ordered; liver ultrasound ordered in setting of elevated AST and alk phos -Patient appeared quite set toyed on exam and due to the above significant SIRS criteria, suspicion for sepsis and subsequent deterioration was deemed high -Empiric vancomycin and Zosyn started with pending MRSA screen; certainly could consider de-escalation based on work-up results and negative MRSA pcr -Repeat CBC ordered for the morning -Strict I and O monitoring and urine output #Severe hypoalbuminemia -likely secondary to protein malnutrition i/s/o recent poor p.o. intake and chronic deficiencies related to gastric bypass -Status post gastric bypass -Initial albumin 1.3, total protein 3.9 -gamma gap was 2.6 (greater than or equal to 4 concern for source of suppressed immune system) -Bilateral lower extremity edema with upper body cachexia concerning for anasarca -This is a significant chronic issue for which patient was admitted last month to [facility] and subsequently transferred to [place] -She is status post gastric bypass and is likely suffering from post bypass malabsorption/malnutrition -After initial fluid resuscitation in setting of positive SIRS/high suspicion of sepsis, will administer albumin (consent signed) -Urinalysis has been ordered with particular attention to be paid to urine protein to rule out nephrotic syndrome -There is some concern for possible underlying autoimmune and/or neoplastic process #Diffuse hyperesthesia - possibly 2/2 nutritional deficiencies and related neuropathy -Patient has suspected post bypass malabsorption/malnutrition -Upon discharge from [place] last month, patient reports to be taking B12, vitamin D, potassium and iron -Checking multiple vitamin levels including B1 (thiamine), B2 (riboflavin), B3 (niacin), B6 (pyridoxine) -Apparently the patient takes gabapentin on an outpatient basis; scheduled gabapentin has been ordered -Of note, patient has been taking buprenorphine on outpatient basis; morphine is a listed allergy and hydromorphone would potentially drop blood pressure; one-time fentanyl dose ordered -Oral Tylenol as needed #Orolabial, hand, and feet erythema with skin peeling and leukonychia - possibly 2/2 malnutrition/nutritional deficiency vs autoimmune process vs neoplastic process -Physical exam's findings as discussed extensively above -autoimmune and vitamin/nutritional deficiency work-up -Await alk phos may point to possible liver and/or bone pathology/neoplasm #Dry eyes, dry mouth, and alopecia - possibly 2/2 autoimmune process vs nutritional deficiency -Patient has reported dry eyes and dry mouth since discharge from [place] last month; also has had widespread loss of hair over the past 3 months -JOSEPH as well as anti-Ro and anti-La antibodies have been ordered; please see nutritional deficiency labs and evaluation above #Elevated TSH -In the setting of hypotension with multiple complaints, TSH was checked and was significantly elevated 10.9; free T4 added -Patient meets SIRS criteria and has high suspicion for sepsis so TSH may be abnormally affected; nonetheless, consideration of possible underlying hypothyroidism #Elevated AST and alkaline phosphatase -AST mildly elevated at 62, alkaline phosphatase elevated 362; ALT, and bilirubin WNL -Abdominal ultrasound ordered; hepatitis panel #Hyperkalemia -Initial potassium measured at 5.8 but comment on metabolic panel was the sample was hemolyzed -Repeat metabolic panel ordered for the morning #History of bilateral DVT and PE -Diagnoses from 2019 extensively discussed and past medical history -Home Eliquis continued # deconditioning/debility -Patient has had increasing debility since being discharged from [place] last month; she is 46 years old and is only moved to go to the restroom for the past 2 weeks -Patient likely will require some type of therapy #DVT prophylaxis: Home Eliquis continued CODE STATUS: Full code Disposition: home after more than 2 midnight's stay Laboratory Data Labs 24H Laboratory Tests 2 08/31/21 13:35: Lactic Acid Level 3.0*H 08/31/21 13:36: Immature Granulocyte % (Auto) 0.9, Neutrophils (%) (Auto) 76.0H, Lymphocytes (%) (Auto) 16.8L, Monocytes (%) (Auto) 5.6, Eosinophils (%) (Auto) 0.3, Basophils (%) (Auto) 0.4, Neutrophils # (Auto) 10.8H, Lymphocytes # (Auto) 2.4, Monocytes # (Auto) 0.8, Eosinophils # (Auto) 0.0, Basophils # (Auto) 0.1, Nucleated Red Blood Cells % (auto) 0.0, Erythrocyte Sedimentation Rate 1 08/31/21 13:42: 08/31/21 13:43: Coronavirus (COVID-19)(PCR) NEGATIVE, Influenza Type A (RT-PCR) NEGATIVE, Influenza Type B (RT-PCR) NEGATIVE, Respiratory Syncytial Virus (PCR) NEGATIVE 08/31/21 14:28: Anion Gap 6L, Glomerular Filtration Rate > 60.0, Calcium Level 7.6L, Total Bilirubin 0.5, Direct Bilirubin 0.1, Aspartate Amino Transf (AST/SGOT) 62H, Alanine Aminotransferase (ALT/SGPT) 75, Alkaline Phosphatase 352H, Total Creatine Kinase 44, Creatine Kinase MB 1.5, Creatine Kinase MB Relative Index 3.41, Troponin I < 0.02, C-Reactive Protein, Quantitative 2.26H, Total Protein 3.9L, Albumin 1.3L, Albumin/Globulin Ratio 0.5L, Lipase < 10L, Vitamin B12 Level 1033H, Syphilis Serology NONREACTIVE, HIV Antigen/Antibody Combo Qual NEGATIVE CBC/BMP Laboratory Tests 08/31/21 13:36 08/31/21 14:28 Microbiology Microbiology 08/31/21 Blood Culture, Received Pending 08/31/21 Blood Culture, Received Pending Home Medications Scheduled Betamethasone Dip (Betamethasone Dipropionate) 15 Gm Oint...g., 1 APLCT TOP BID Edoxaban Tosylate (Savaysa) 30 Mg Tablet, 30 MG PO DAILY Ergocalciferol (Vitamin D2) (Vitamin D2) 50,000 Units Cap, 50,000 UNITS PO QWEEK MONDAYS Ferrous Sulfate (Ferrous Sulfate) 325 Mg Tablet.dr, 325 MG PO BID Furosemide (Furosemide) 40 Mg Tablet, 40 MG PO DAILY Multivitamin with Folic Acid (Tab-A-Loretta Tablet) 400 Mcg Tablet, 400 MCG PO DAILY Rivaroxaban (Xarelto) 15 Mg Tablet, 15 MG PO BID Zinc Sulfate (Zinc Sulfate) 220 Mg Capsule, 220 MG PO DAILY Allergies Coded Allergies: morphine (Verified Allergy, Intermediate, hives, 11/26/19) GME ATTESTATION GME ATTESTATION My faculty preceptor for this patient encounter was physically present during the encounter and was fully available. All aspects of the patient interview, examination, medical decision making process, and medical care plan development were reviewed and approved by the faculty preceptor. The faculty preceptor is a valverde and concurs with the plan as stated in the body of this note and will attest to such by his/her cosignature. ATTENDING NOTE Time of service 1015PM Ms. Lin is a 46 yr old F w a hx of suspected gastric bypass malabsorption, PE/DVT, WILBER, and hypoalbuminemia who presented w c/o of burning paresthesias at the hands and feet that are associated with hand and foot redness; she will be admitted for management of suspected Sepsis cause TBD, hypotension, paresthesias /suspected adult Beri-beri, hypoalbuminemia & mild transaminitis. Plan: We will place the sepsis order set, and start empiric antibiotics pending suggs-cx results / after she receives at least 30ml/kg of IVF we will switch to albumin / we will monitor strict Is and Os and her UOP / we will check her UA and take note of the Urine protein to r/o nephrotic syndrome / we will also check her B1 levels, Hepatitis panel, UDS and trend her LFTs. Rest per Dr.Schwarzs Lindo&SANDY BAILEY D.O. Aug 31, 2021 22:50 MCKINLEY FORREST MD Sep 01, 2021 02:54
[2021-09-01 00:03] LABS: PHOSPHORUS LEVEL 4.2 MG/DL (2.5-4.9); PREALBUMIN 5.6 MG/DL (20.0-40.0)
[2021-09-01] MEDS ORDERED: MOM 30ML SUSPENSION UDC PO PRN (01:00)
[2021-09-01] MEDS ORDERED: MAALOX 30 ML SUSP *UDC PO PRN (01:00)
[2021-09-01] MEDS ORDERED: SODIUM CHLORIDE 0.9% 1000ML IV ONE (01:05)
[2021-09-01] MEDS ORDERED: NS 1,000 ML IV SCH (01:25)
[2021-09-01] MEDS ORDERED: HYDROmorphone HCL 2 MG/ML 1ML VIAL IV PRN (01:30)
[2021-09-01] MEDS ORDERED: fentaNYL 100 MCG/2 ML INJECTION (J3010) IV ONE ×2 (02:25→08:35)
[2021-09-01 02:28] LABS: FREE T4 0.66 NG/DL (0.76-1.46)
[2021-09-01] MEDS ORDERED: LIDOCAINE 2% 5ML JELLY UROJET TOP ONE (02:50)
[2021-09-01] MEDS: PIPERACILLIN/TAZOBACTAM SOD 4.5 GM in D5W MINI-BAG PLUS 50 ML IV SCH ×2 (02:51→08:57)
[2021-09-01] MEDS ORDERED: VANCOMYCIN HCL 1,000 MG, VIAL MATE ADAPTER 1 EACH in NS 250 ML IV ONE (04:00)
[2021-09-01 04:19] LABS: AMPHETAMINES LEVEL URINE NEGATIVE (NEGATIVE); BARBITURATES URINE NEGATIVE (NEGATIVE); BENZODIAZEPINES URINE NEGATIVE (NEGATIVE); CANNABINOIDS URINE NEGATIVE (NEGATIVE); COCAINE METABOLITE URINE NEGATIVE (NEGATIVE); METHADONE URINE NEGATIVE (NEGATIVE); OPIATES URINE NEGATIVE (NEGATIVE); PHENCYCLIDINE URINE NEGATIVE (NEGATIVE)
[2021-09-01 04:57] VITALS: BP 87/55
[2021-09-01 05:32] VITALS: BP 96/63
--- NOTE | 2021-09-01 07:08 | REPVR ---
PROCEDURE INFORMATION: Exam: US Abdomen, Limited; Right Upper Quadrant Exam date and time: 09/01/2021 2:17 AM Age: 46 years old Clinical indication: Abnormal findings; Abnormal lab test; Other: Hypoalbuminemia; Prior surgery; Surgery date: 6+ months; Surgery type: Cholecystectomy, gastric bypass; Additional info: Severe hypoalbuminemia i/s/o S/P bypass TECHNIQUE: Imaging protocol: US abdomen. Real time ultrasound with image documentation. Limited exam focused on the right upper quadrant. COMPARISON: CT ABD/PEL W/IV CONTRAST ONLY 07/30/2021 12:40 PM FINDINGS: Liver: Diffuse increased echogenicity of the liver suggestive of fatty infiltration. Gallbladder: Gallbladder is not visualized. Common bile duct: Common bile duct diameter mildly prominent 0.72 cm. Pancreas: The pancreas is not well visualized due to prominent overlapping bowel gas. Right kidney: The right kidney measures 10.5 x 3.5 cm. IMPRESSION: 1. Prior postoperative cholecystectomy. 2. Fatty infiltration of the liver. 3. Mild accentuation of extrahepatic bile ducts which may be on the basis of cholecystectomy. Electronically signed by: Leslie Dowd On 09/01/2021 07:07:40 AM
[2021-09-01 07:50] LABS: ALBUMIN 1.5 GM/DL (3.2-5.2); ALT/SGPT 66 U/L (12-78); BILIRUBIN,TOTAL 0.4 MG/DL (0.2-1.0); BLOOD UREA NITROGEN 31 MG/DL (7-18); CALCIUM LEVEL 6.5 MG/DL (8.5-10.1); CARBON DIOXIDE LEVEL 25 MEQ/L (21-32); CHLORIDE LEVEL 107 MEQ/L (98-107); CREATININE FOR GFR 0.53 MG/DL (0.55-1.30); GLOMERULAR FILTRATION RATE > 60.0 (>58); GLUCOSE, FASTING 99 MG/DL (70-100); MAGNESIUM LEVEL 1.7 MG/DL (1.8-2.4); POTASSIUM SERUM 4.4 MEQ/L (3.5-5.1); SODIUM LEVEL 137 MEQ/L (136-145); TOTAL PROTEIN 3.8 GM/DL (6.4-8.2)
[2021-09-01] MEDS ORDERED: MAG SULF 1GM/100ML (MAG RUN) 1 GM in IV 1 EA IV ONE (09:00)
[2021-09-01] MEDS ORDERED: GABAPENTIN 300 MG CAP PO SCH (09:00)
[2021-09-01] MEDS: APIXABAN 5 MG TAB (ELIQUIS) PO SCH ×2 (09:02→21:40)
[2021-09-01] MEDS: FERROUS SULFATE 325MG TAB PO SCH ×2 (09:02→21:40)
[2021-09-01 09:22] LABS: HEMATOCRIT 33.4 % (36.0-47.0); MEAN CORPUSCULAR HEMOGLOBIN 30.5 pg (27.0-33.0); MEAN CORPUSCULAR HGB CONC 31.7 g/dl (32.0-36.5); PLATELET COUNT, AUTOMATED 209 10^3/uL (150-450); RED BLOOD COUNT 3.48 10^6/uL (4.00-5.40); WHITE BLOOD COUNT 11.1 10^3/uL (4.0-10.0)
[2021-09-01 09:23] LABS: HEMOGLOBIN 10.6 g/dl (12.0-15.5)
[2021-09-01 09:50] LABS: TOTAL 25(OH) VITAMIN D 11.1 NG/ML (30.0-100.0)
[2021-09-01 10:01] LABS: HEPATITIS B SURFACE ANTIGEN NEGATIVE (NEGATIVE)
[2021-09-01] MEDS: GABAPENTIN 300 MG CAP PO SCH ×3 (10:01→21:40)
[2021-09-01 10:28] LABS: HEPATITIS B CORE ANTIBODY IGM NEGATIVE (NEGATIVE); HEPATITIS C VIRUS ABY INDEX < 0.0 INDEX (<0.8)
[2021-09-01 10:31] LABS: HEPATITIS A ANTIBODY IGM NEGATIVE (NEGATIVE)
[2021-09-01] MEDS: NS 1,000 ML IV SCH (11:17)
[2021-09-01] MEDS: predniSONE 50 MG TAB PO SCH (11:17)
[2021-09-01] MEDS ORDERED: VANCOMYCIN HCL 1,000 MG, VIAL MATE ADAPTER 1 EACH in NS 250 ML IV SCH (12:00)
[2021-09-01 12:05] VITALS: BP 103/64
[2021-09-01] MEDS ORDERED: AZITHROMYCIN 250MG TABLET PO SCH (14:00)
[2021-09-01 14:05] VITALS: BP 92/67
[2021-09-01] MEDS ORDERED: CEFEPIME HCL 1 GM in D5W MINI-BAG PLUS 50 ML IV SCH (15:00)
[2021-09-01 16:15] LABS: FOLATE 7.9 NG/ML (>5.4)
--- NOTE | 2021-09-01 16:32 | IPNPDOC ---
Subjective Date Seen The patient was seen on 09/01/21. Subjective Chief Complaint/HPI SUBJECTIVE: Patient was seen at bedside this morning in the ER. Patient looks cachectic and is in acute distress from pain, specifically in the lower extremities in bilateral feet and legs. She states that there is extreme burning in her lower extremities. There is diffuse erythema with sloughing in bilateral soles of her feet left greater than the right. She also reports pain in bilateral hands which are both red with pronounced sloughing in her fingertips. She also has erythema on the right burgess that is warm to the touch, however unable to assess the pain due to hyperesthesia. Patient states that the redness and sloughing in her lower extremities as well as hands started about a week ago which is 1 week after her discharge from [facility]. Patient reports dry eyes as well as mucositis and pain in her oral mucosa. She also reports extreme dryness in her throat as well as sore throat and states that she has not eaten anything solid in the past 2 weeks and has been drinking most of her calories. REVIEW OF SYSTEMS: CONSTITUTIONAL: Denies fever, chills, night sweats. She does report unintentional weight loss in the past 9 days she lost about 25 pounds but she reports that she did get it back and is now to her baseline weight (around 120 pounds). Also reports generalized malaise and whole body ache HEENT: Experiencing dysphagia and odynophagia as well as sore and dry throat. Also reports dry eyes and dry mouth. Patient denies any lumps and bumps in the neck region or axillary region. CARDIOVASCULAR: Denies chest pain, chest pressure, or palpitations RESPIRATORY: Denies any coughing however does have shortness of breath which has not deviated from her baseline. Her shortness of breath was more pronounced prior to being transferred to [facility] during the previous visit. Denies orthopnea or paroxysmal nocturnal dyspnea. GASTROINTESTINAL: Denies bloody stools, hematemesis, nausea, vomiting, diarrhea. GENITOURINARY: Denies dysuria, hematuria, or flank pain or polyuria SKIN: Redness skin in feet and legs as well as bilateral hands with sloughing. MUSCULOSKELETAL: Unable to move around much due to pain. EXTREMITIES: Some swelling in bilateral lower extremities. NEUROLOGICAL: Denies any weakness in one particular side of her body, more generalized weakness. Denies any loss of sensation denies any loss of bowel or bladder function. HEMATOLOGIC: Reports easy bruising (although patient is on Eliquis for previous DVT/PE) HOME MEDICATIONS: Reviewed. PHYSICAL EXAMINATION: VITAL SIGNS: See Below GENERAL APPEARANCE: cachetic looking female lying upright in ED bed, appears o lder than her stated age. In acute distress due to pain. HEENT: Loss of hair over the vertex of the scalp. Normocephalic. Atraumatic. Noninjected, anicteric sclera. PERRLA. EOMI. mild conjunctival pallo, very dry eyes, and oral mucosa. There is oral labial scattered erythema with dry lips and possible angular Kalosis. Scant white exudates scattered across the posterior pharynx. No significant erythema appreciated. poor dentition with multiple visualized dental caries. Dry mucous membranes. Neck: No significant lymphadenopathy appreciated. Chest: Patient's upper body appears cachectic with signs of wasting in neck and pectoral musculature. CARDIOVASCULAR: Borderline tachycardic rate, regular rhythm. Normal S1, S2. No significant murmurs appreciated. LUNGS: Patient is unable to take deep breaths secondary to generalized pain. From what was auscultated, no significant adventitious breath sounds were appreciated. No conversational dyspnea. No significant accessory muscle use visualized. Symmetric chest expansion. Breathing room air. ABDOMEN: Soft, nondistended and somewhat sunken abdomen. Exquisitely tender to even light touch making thorough accurate abdominal exam quite difficult. Guarding with no rigidity appreciated. Multiple healed incisional scars over abdomen. Normoactive bowel sounds throughout. MUSCULOSKELETAL: She is unable to lift bilateral lower extremities off the bed likely due to pain vs. debility. Full range of motion of upper extremities. EXTREMITIES: There is bilateral lower extremity pitting edema; extent of edema unable to be assessed fully due to patient's exquisite tenderness. There is erythema of bilateral palms and fingers with visualized skin peeling of both thumbs. White discoloration/leukonychia of nailbeds on bilateral hands. There is increased erythema over plantar aspect of bilateral feet, more prominent left vs right. 2+ radial pulses bilaterally. NEUROLOGICAL: Alert and oriented x3. No gross focal neurologic deficits appreciated. Hyperesthesia/exquisitely tender to any light touch of any of her extremities or torso. Non-dysarthric speech. SKIN: Sloughing with erythema in bilateral soles of her feet as well as bilateral palmar surfaces with sloughing. She has erythema and warmth in right burgess. She has plaques with erythema on her chin. There are petechial findings in her abdomen as well as her thighs however patient denies this being a new finding PSYCHIATRIC: Distressed and in pain. LABORATORY DATA: Please see below. IMAGING: No new imaging performed today. MICROBIOLOGY: Please see below. 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 She met the SIRS criteria however source is still unknown and was started on broad spec antibiotics with Vanco and Zosyn. She was given 1 dose of fentanyl IV as well as hydrocodone for pain and the hospitalist team was asked to admit the patient for further management of her care. Skin erythema with sloughing -Most prominent in bilateral soles of feet as well as palmar surfaces extending into the dorsum of the hands bilaterally with sloughing. Also noted are scattered plaques on her chin as well as elbows. With these findings there was some initial suspicion for Stuart-Sumanth syndrome versus drug eruption versus pemphigoid vulgaris. -Have spoken with dermatology over the phone and per recommendations, the rash looks more psoriasiform with to f/u on serum zinc level as well as B12 and folate, thiamine with the top 3 differentials being nutritional deficiency, bazex syndrome from underlying malignancy, drug eruption (to include chemotherapy), unlikely to be Stuart-Sumanth syndrome. Pending vitamin panels if negative may need suggs scanning for Ca. -Dermatology on consultation appreciate their recommendations and further input. -Have also discussed this case with rheumatology on-call Dr. Mcginnis over the phone and per recommendations will order a CK as well as aldolase to work-up inflammatory myopathies. Positive SIRS criteria (source unknown) -Her blood cultures, urine culture have been ordered pending results currently. Chest radiograph was unimpressive for any acute processes. -Patient was initially hypotensive (however upon investigation patient states that her blood pressure runs low at baseline usually with systolic blood pressure of 90s.) On admission her heart rate was borderline tachycardic (100), also noted leukocytosis with initial elevated lactate however reflex lactate was within normal limits. Patient was started on fluid bolus and one-time dose of Rocephin in the ER and continued on broad spec antibiotics with Vanco and Zosyn on admission. -We will continue with fluids. Will DC the Vanco and Zosyn in light of her skin findings suspicious for Stuart-Sumanth syndrome versus pemphigus vulgaris until further recommendations from dermatology. Severe hypoalbuminemia -likely secondary to protein malnutrition i/s/o recent poor p.o. intake and chronic deficiencies related to gastric bypass -There may be some component of post bypass malabsorption/malnutrition -gamma gap was 2.6 (greater than or equal to 4 concern for source of suppressed immune system) -Chronic bilateral lower extremity edema with upper body cachexia concerning for anasarca status post albumin infusions have persisted ever since being admitted to [facility] last month per patient -UA with reflex order and will order for spot urine to assess for significant proteinuria/nephrotic syndrome Diffuse hyperesthesia - possibly 2/2 nutritional deficiencies and related neuropathy -Patient reports extreme burning in bilateral lower extremities as well as bilateral upper extremities. Suspect there may be a component of post bypass malabsorption/malnutrition however patient does report taking vitamin B12 vitamin D potassium supplementation. - Patient does take gabapentin as outpatient regimen. We will increase her gabapentin to 300 3 times daily -Vitamins including B1 (thiamine), B2 (riboflavin), B3 (niacin), B6 (pyridoxine)-ordered and will follow up on the results -Patient is noted to take buprenorphine on outpatient basis. Her pressures were soft in the ER and a one-time dose of fentanyl was ordered for pain control. Will order for Tylenol as needed for further pain control. Patient has a morphine allergy listed with adverse reaction of hives-she was given Dilaudid this morning and tolerated it without any adverse effects. Will order tramadol for pain control. Would avoid any further fentanyl is patient does have a history of opioid use disorder. Elevated TSH -In the setting of hypotension with multiple complaints, TSH was checked and was significantly elevated 10.9; free T4 added -Patient meets SIRS criteria and has high suspicion for sepsis so TSH may be abnormally affected; nonetheless, consideration of possible underlying hypothyroidism Elevated AST and alkaline phosphatase -AST mildly elevated at 62, alkaline phosphatase elevated 362; ALT, and bilirubin WNL -Abdominal ultrasound ordered; hepatitis panel ordered pending results. Hyperkalemia, lab error -Patient's initial potassium was 5.8 however the sample was hemolyzed on repeat her potassium was within normal limits at 4.4. -We will continue to monitor her labs and electrolytes closely and replete as necessary. History of bilateral DVT and PE -Diagnoses from 2019 extensively discussed and past medical history -Continue with Eliquis Deconditioning and debility -Patient has severe malnutrition and deconditioning secondary to prolonged hospital stay as well as debility. -Order for PT OT once patient's pain is more under control. DVT prophylaxis: Eliquis CODE STATUS: Full Disposition: Pending clinical improvement VS, I&O, 24H, Fishbone Vital Signs/I&O Vital Signs Date Time Temp Pulse Resp B/P (MAP) Pulse Ox O2 Delivery O2 Flow Rate FiO2 09/01/21 08:53 22 Room Air 09/01/21 07:49 96.7 77 98/63 (75) 100 I&O- Last 24 Hours up to 6 AM 09/01/21 06:00 Intake Total 150.0 ml Balance 150.0 ml Laboratory Data 24H LABS Laboratory Tests 2 08/31/21 13:35: Lactic Acid Level 3.0*H 08/31/21 13:36: Immature Granulocyte % (Auto) 0.9, Neutrophils (%) (Auto) 76.0H, Lymphocytes (%) (Auto) 16.8L, Monocytes (%) (Auto) 5.6, Eosinophils (%) (Auto) 0.3, Basophils (%) (Auto) 0.4, Neutrophils # (Auto) 10.8H, Lymphocytes # (Auto) 2.4, Monocytes # (Auto) 0.8, Eosinophils # (Auto) 0.0, Basophils # (Auto) 0.1, Nucleated Red Blood Cells % (auto) 0.0, Erythrocyte Sedimentation Rate 1 08/31/21 13:42: 08/31/21 13:43: Coronavirus (COVID-19)(PCR) NEGATIVE, Influenza Type A (RT-PCR) NEGATIVE, Influenza Type B (RT-PCR) NEGATIVE, Respiratory Syncytial Virus (PCR) NEGATIVE 08/31/21 14:28: Anion Gap 6L, Glomerular Filtration Rate > 60.0, Calcium Level 7.6L, Phosphorus Level 4.2, Total Bilirubin 0.5, Direct Bilirubin 0.1, Aspartate Amino Transf ( AST/SGOT) 62H, Alanine Aminotransferase (ALT/SGPT) 75, Alkaline Phosphatase 352H, Total Creatine Kinase 44, Creatine Kinase MB 1.5, Creatine Kinase MB Relative Index 3.41, Troponin I < 0.02, C-Reactive Protein, Quantitative 2.26H, Total Protein 3.9L, Albumin 1.3L, Albumin/Globulin Ratio 0.5L, Prealbumin 5.6L, Lipase < 10L, Vitamin B12 Level 1033H, Thyroid Stimulating Hormone (TSH) 10.900H, Syphilis Serology NONREACTIVE, HIV Antigen/Antibody Combo Qual NEGATIVE 09/01/21 01:25: Urine Color DAPHNE, Urine Appearance HAZY, Urine pH 5.0, Urine Specific [place] 1.034, Urine Protein 1+H, Urine Glucose (UA) NEGATIVE, Urine Ketones NEGATIVE, Urine Blood NEGATIVE, Urine Nitrite NEGATIVE, Urine Bilirubin 1+H, Urine Urobilinogen 4.0H, Urine Leukocyte Esterase NEGATIVE, Urine WBC (Auto) 2, Urine RBC (Auto) 2, Urine Hyaline Casts (Auto) 0, Urine Bacteria (Auto) NEGATIVE, Urine Squamous Epithelial Cells 1, Urine Mucus (Auto) SMALL, Urine Sperm (Auto) , Urine Opiates Screen NEGATIVE, Urine Methadone Screen NEGATIVE, Urine Barbiturates Screen NEGATIVE, Urine Phencyclidine Screen NEGATIVE, Urine Amphetamines Screen NEGATIVE, Urine Benzodiazepines Screen NEGATIVE, Urine Cocaine Metabolite Screen NEGATIVE, Urine Cannabinoids Screen NEGATIVE 09/01/21 01:47: Lactic Acid Followup at 4 Hours 1.5, Whole Blood Ionized Calcium 4.3L 09/01/21 01:48: Iron Level 60, Ferritin 90, Free Thyroxine 0.66L 09/01/21 06:55: Anion Gap 5L, Glomerular Filtration Rate > 60.0, Calcium Level 6.5L, Magnesium Level 1.7L, Total Bilirubin 0.4, Aspartate Amino Transf (AST/SGOT) 59H, Alanine Aminotransferase (ALT/SGPT) 66, Alkaline Phosphatase 387H, Total Protein 3.8L, Albumin 1.5L, Albumin/Globulin Ratio 0.7L CBC/BMP Laboratory Tests 08/31/21 13:36 08/31/21 14:28 09/01/21 06:55 Microbiology Microbiology 08/31/21 Blood Culture, Received Pending 08/31/21 Blood Culture, Received Pending GME ATTESTATION GME ATTESTATION My faculty preceptor for this patient encounter was physically present during the encounter and was fully available. All aspects of the patient interview, examination, medical decision making process, and medical care plan development were reviewed and approved by the faculty preceptor. The faculty preceptor is aware and concurs with the plan as stated in the body of this note and will attest to such by his/her cosignature. Lee Meyers DO Sep 01, 2021 09:18
[2021-09-01] MEDS: traMADol 50 MG TAB PO PRN ×2 (17:10→23:09)
--- NOTE | 2021-09-01 17:40 | CR.PDOC ---
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 HISTORY OF PRESENT ILLNESS: 46yo F with a history of gastric bypass in 2001, diarrhea, hypoalbuminemia, DVT/PE on NOAC presenting to [facility] ER with burning pain located on the lower legs from the hips moving distally. Dermatology consulted for concern of potential SJS/TEN given skin pain and acral erythema and desquamation. Patient reports acral erythema and desquamation began 4-5 days ago and is "disgusting". She reports the skin is peeling and bothersome. Denies pain in the hands but exquisite pain in the feet. Denies treatment. She also notes edema of the lower legs present for months. She reports hair loss present for several months. She reports dry mouth and dry eyes. She reports trouble swallowing that has resulted in her eating a diet consisting solely of watermelon, yogurt, and bananas. She reports she spends the majority of her time in a chair and has trouble ambulating. She has a remote history of opioid addiction resulting in extensive excoriations along the face due to formication. ALLERGIES: Please see below. HOME MEDICATIONS: Please see below. PHYSICAL EXAMINATION: VITAL SIGNS: Please see below. GENERAL APPEARANCE: cachectic, sleeping peacefully upon entering the room and progressively in more distress secondary to pain HEENT: no LAD, no mucosal abnormality in the conjunctiva, glossitis with erythema and some loss of papilla SKIN: Patient with psoriasiform dermatitis of acral surfaces with desquamation and violaceous hue. Sloughing skin in the webspaces at sites likely previous bullae. Seborrheic dermatitis-like rash around the mouth with scaling and erythema with mild involvement of the nasolabial folds. LABORATORY DATA: Please see below. ASSESSMENT/PLAN: 1. Skin, a rash Clinical appearance is not consistent with SJS/TEN. Please proceed with whichever medications and treatments as indicated for medical necessity. Differential diagnosis includes acrodermatitis enteropathica (zinc deficiency) and Bazex syndrome (acrokeratosis paraneoplastica) secondary to occult malignancy. Clinical findings of psoriasiform rash with desquamation of the fingertips and perioral rash are highly consistent. Other considerations like hand/foot/mouth and acral erythrodysesthesia are much less likely. Recommend checking zinc and alkaline phosphatase. Previous ALK phos elevated but highly non-specific, especially in someone with so much wasting. Repeat test may be of benefit. Supplementation should be helpful but overall nutritional status very poor. Recommended to add folate to B12 workup. Topical corticosteroids such as betamethasone dip -0.05% may be helpful but relief will come from correcting nutritional deficiency. Given that the majority of Bazex syndrome is due to SCC of head and neck and she has trouble swallowing, recommend imaging of the head and neck. Other common causes of Bazex include lung SCC/adenocarcinoma, GI adenocarcinoma, malignancy & lymphomas. Appropriate radiologic evaluation based on symptoms would be appropriate. Nara Gonzales MD Dermatology Vital Signs/I&O Vital Signs Date Time Temp Pulse Resp B/P (MAP) Pulse Ox O2 Delivery O2 Flow Rate FiO2 09/01/21 17:10 16 09/01/21 17:08 97.8 74 98/68 (78) 98 Room Air I&O- Last 24 Hours up to 6 AM 09/01/21 05:59 Intake Total 150.0 ml Balance 150.0 ml Laboratory Data Labs 24H Laboratory Tests 2 09/01/21 01:25: Urine Color DAPHNE, Urine Appearance HAZY, Urine pH 5.0, Urine Specific [place] 1.034, Urine Protein 1+H, Urine Glucose (UA) NEGATIVE, Urine Ketones NEGATIVE, Urine Blood NEGATIVE, Urine Nitrite NEGATIVE, Urine Bilirubin 1+H, Urine Urobilinogen 4.0H, Urine Leukocyte Esterase NEGATIVE, Urine WBC (Auto) 2, Urine RBC (Auto) 2, Urine Hyaline Casts (Auto) 0, Urine Bacteria (Auto) NEGATIVE, Urine Squamous Epithelial Cells 1, Urine Mucus (Auto) SMALL, Urine Sperm (Auto) , Urine Opiates Screen NEGATIVE, Urine Methadone Screen NEGATIVE, Urine Barbiturates Screen NEGATIVE, Urine Phencyclidine Screen NEGATIVE, Urine Amphetamines Screen NEGATIVE, Urine Benzodiazepines Screen NEGATIVE, Urine Cocaine Metabolite Screen NEGATIVE, Urine Cannabinoids Screen NEGATIVE 09/01/21 01:47: Lactic Acid Followup at 4 Hours 1.5, Whole Blood Ionized Calcium 4.3L 09/01/21 01:48: Iron Level 60, Ferritin 90, Free Thyroxine 0.66L 09/01/21 06:55: Anion Gap 5L, Glomerular Filtration Rate > 60.0, Calcium Level 6.5L, Magnesium Level 1.7L, Total Bilirubin 0.4, Aspartate Amino Transf (AST/SGOT) 59H, Alanine Aminotransferase (ALT/SGPT) 66, Alkaline Phosphatase 387H, Total Protein 3.8L, Albumin 1.5L, Albumin/Globulin Ratio 0.7L, 25-Hydroxy Vitamin D Total 11.1L, Folate 7.9, Hepatitis A IgM Antibody NEGATIVE, Hepatitis B Surface Antigen NEGATIVE, Hepatitis B Core IgM Antibody NEGATIVE, Hepatitis C Antibody Index < 0.0 09/01/21 08:53: Nucleated Red Blood Cells % (auto) 0.0 09/01/21 13:09: CBC/BMP Laboratory Tests 09/01/21 06:55 09/01/21 08:53 Microbiology Microbiology 08/31/21 Blood Culture - Preliminary, Resulted No growth after 24 hours . All specim... 08/31/21 Blood Culture - Preliminary, Resulted No growth after 24 hours . All specim... Allergies Coded Allergies: morphine (Verified Allergy, Intermediate, hives, 11/26/19) Home Medications Scheduled Apixaban (Eliquis) 5 Mg Tablet, 5 MG PO BID, (Reported) Ergocalciferol (Vitamin D2) (Vitamin D2) 50,000 Units Cap, 50,000 UNITS PO QWEEK, (Reported) MONDAYS Ferrous Sulfate (Ferrous Sulfate) 325 Mg Tablet.dr, 325 MG PO BID, (Reported) Furosemide (Furosemide) 40 Mg Tablet, 40 MG PO DAILY, (Reported) Multivitamin with Folic Acid (Tab-A-Loretta Tablet) 400 Mcg Tablet, 400 MCG PO DAILY, (Reported) NARA GONZALES MD Sep 01, 2021 17:20
[2021-09-01 17:44] VITALS: BP 105/69
[2021-09-01] MEDS ORDERED: ISOVUE-370 76% 100ML VIAL As Ordered ONE (18:24)
[2021-09-01 19:28] VITALS: BP 96/63
[2021-09-01 19:58] LABS: TOTAL PROTEIN,RANDOM URINE 55.2 MG/DL (0.0-12.0)
--- NOTE | 2021-09-01 20:05 | REPVR ---
PROCEDURE INFORMATION: Exam: CT Head Without And With Contrast Exam date and time: 09/01/2021 7:05 PM Age: 46 years old Clinical indication: Other: R/O occult malign TECHNIQUE: Imaging protocol: Computed tomography of the head without and with intravenous contrast. Radiation optimization: All CT scans at this facility use at least one of these dose optimization techniques: automated exposure control; mA and/or kV adjustment per patient size (includes targeted exams where dose is matched to clinical indication); or iterative reconstruction. Contrast material: ISOVUE 370; Contrast volume: 100 ml; Contrast route: INTRAVENOUS (IV); COMPARISON: No relevant prior studies available. FINDINGS: Brain: No intracranial mass, mass effect or midline shift. No acute intracranial hemorrhage. No CT evidence of acute cortical infarct. Ventricles, cisterns, and sulci are normal in size for age. Paranasal sinuses: Imaged paranasal sinuses are normally aerated. Mastoid air cells: Mastoid air cells and middle ear structures are normally aerated. Orbital cavity: Imaged orbits are unremarkable. Vasculature: Normal enhancement of the subarachnoid vessels. No enhancing parenchymal or meningeal mass Bones/joints: No calvarial fracture or destructive process. Soft tissues: No focal extracranial soft tissue swelling. IMPRESSION: No acute or concerning focal intracranial abnormality. Electronically signed by: Les Vigil On 09/01/2021 20:05:06 PM
--- NOTE | 2021-09-01 20:08 | REPVR ---
PROCEDURE INFORMATION: Exam: CT Neck With Contrast Exam date and time: 09/01/2021 7:05 PM Age: 46 years old Clinical indication: Other: R/O occult malign TECHNIQUE: Imaging protocol: Computed tomography images of the neck with contrast. Radiation optimization: All CT scans at this facility use at least one of these dose optimization techniques: automated exposure control; mA and/or kV adjustment per patient size (includes targeted exams where dose is matched to clinical indication); or iterative reconstruction. Contrast material: ISOVUE 370; Contrast volume: 100 ml; Contrast route: INTRAVENOUS (IV); COMPARISON: CT ANGIO CHEST 07/30/2021 12:40 PM FINDINGS: No focal subcutaneous soft tissue swelling. Parapharyngeal and posterior nasopharynx soft tissue planes are symmetric. No asymmetric enlargement or inflammation of the pharyngeal tonsils. Vascular structures of the neck enhance normally. No abnormally enlarged cervical chain or jugulodigastric lymph nodes. Muscles of mastication and strap muscles of the neck appear normal. Parotid and minor salivary glands are unremarkable. Floor of the mouth and tongue base soft tissues appear normal. Laryngeal structures appear normal. Thyroid gland shows no abnormality. Lung apices are normal. Bony structures are unremarkable for age. Carious and periodontal dental disease changes are present IMPRESSION: Unremarkable contrast enhanced CT of the neck soft tissues. Electronically signed by: Les Vigil On 09/01/2021 20:07:40 PM
[2021-09-01] MEDS ORDERED: cefTRIAXone SOD 1 GM in D5W MINI-BAG PLUS 50 ML IV SCH (21:00)
[2021-09-01] MEDS: ACETAMINOPHEN TAB 650MG DOSE (2X325MG) PO PRN ×2 (21:42→22:41)
[2021-09-02 00:15] VITALS: BP 90/63
[2021-09-02 02:30] VITALS: BP 92/64
[2021-09-02 04:00] VITALS: BP 98/71
[2021-09-02] MEDS: traMADol 50 MG TAB PO PRN ×4 (05:08→23:32)
[2021-09-02 06:13] LABS: HEMATOCRIT 33.4 % (36.0-47.0)
[2021-09-02] MEDS ORDERED: VANCOMYCIN HCL 750 MG, VIAL MATE ADAPTER 1 EACH in NS 250 ML IV SCH (07:25)
[2021-09-02] MEDS ORDERED: PIPERACILLIN/TAZOBACTAM SOD 2.25 GM in D5W MINI-BAG PLUS 50 ML IV SCH (07:30)
[2021-09-02 08:00] VITALS: BP 96/65
[2021-09-02 09:48] LABS: BASO % 0.2 % (0.0-1.0); EOS % 0.1 % (0.0-3.0); HEMATOCRIT 25.6 % (36.0-47.0); HEMOGLOBIN 8.2 g/dl (12.0-15.5); LYMPH # 2.1 10^3/uL (1.5-5.0); LYMPH % 23.2 % (24.0-44.0); MEAN CORPUSCULAR HEMOGLOBIN 30.6 pg (27.0-33.0); MEAN CORPUSCULAR VOLUME 95.5 fl (80.0-96.0); MONO # 0.5 10^3/uL (0.0-0.8); MONO % 5.7 % (2.0-8.0); NEUTROPHILS # 6.3 10^3/uL (1.5-8.5); NEUTROPHILS % 69.9 % (36.0-66.0); PLATELET COUNT, AUTOMATED 161 10^3/uL (150-450); RED BLOOD COUNT 2.68 10^6/uL (4.00-5.40)
[2021-09-02] MEDS: FERROUS SULFATE 325MG TAB PO SCH ×2 (09:54→20:41)
[2021-09-02] MEDS: GABAPENTIN 300 MG CAP PO SCH ×3 (09:54→20:41)
[2021-09-02] MEDS: APIXABAN 5 MG TAB (ELIQUIS) PO SCH ×2 (09:54→20:41)
[2021-09-02 10:12] LABS: BLOOD UREA NITROGEN 19 MG/DL (7-18); CALCIUM LEVEL 7.4 MG/DL (8.5-10.1); CARBON DIOXIDE LEVEL 23 MEQ/L (21-32); CHLORIDE LEVEL 111 MEQ/L (98-107); CREATININE FOR GFR 0.32 MG/DL (0.55-1.30); GLOMERULAR FILTRATION RATE > 60.0 (>58); GLUCOSE, FASTING 80 MG/DL (70-100); POTASSIUM SERUM 3.6 MEQ/L (3.5-5.1); SODIUM LEVEL 139 MEQ/L (136-145)
[2021-09-02] MEDS: predniSONE 50 MG TAB PO SCH (11:07)
[2021-09-02 12:00] VITALS: BP 98/64
--- NOTE | 2021-09-02 12:42 | IPNPDOC ---
Subjective Date Seen The patient was seen on 09/02/21. Subjective Chief Complaint/HPI SUBJECTIVE: Patient seen at bedside this morning she states that her pain is better than yesterday. Last night she was given another dose of 25% albumin and her legs look less edematous this morning. She denies any chest pain, shortness of breath, cough, fever, chills, nausea, vomiting, abdominal pain, diarrhea. Patient states that she was able to eat a regular diet yesterday. OBJECTIVE: VITAL SIGNS: See Below GENERAL APPEARANCE: cachetic looking female lying upright in ED bed, appears older than her stated age. Looks rather comfortable this morning and in less acute distress HEENT: Loss of hair over the vertex of the scalp. Normocephalic. Atraumatic. Noninjected, anicteric sclera. PERRLA. EOMI. mild conjunctival pallo, very dry eyes, and oral mucosa. There is oral labial scattered erythema with dry lips and possible angular Kalosis. No significant erythema appreciated. poor dentition with multiple visualized dental caries. Dry mucous membranes. Neck: No significant lymphadenopathy appreciated. Chest: Patient's upper body appears cachectic with signs of wasting in neck and pectoral musculature. CARDIOVASCULAR: Normal S1, S2. No significant murmurs, gallops, rubs appreciated. LUNGS: No wheezing rhonchi rales appreciated. ABDOMEN: Soft, nondistended and somewhat sunken abdomen. Normal bowel sounds, no tenderness, or guarding on palpation MUSCULOSKELETAL: Full range of motion in upper extremities limited lower extremity range of motion due to pain still. 3-5 throughout strength. Sensation intact EXTREMITIES: There is erythema of bilateral palms and fingers with visualized skin peeling of both thumbs. White discoloration/leukonychia of nailbeds on bilateral hands. There is increased erythema over plantar aspect of bilateral feet, more prominent left vs right. 2+ radial pulses bilaterally. Lower e xtremity swelling improved from yesterday. NEUROLOGICAL: Alert and oriented x3. No gross focal neurologic deficits appreciated. Hyperesthesia/exquisitely tender to any light touch of any of her extremities or torso. Non-dysarthric speech. SKIN: Sloughing with erythema in bilateral soles of her feet as well as bilateral palmar surfaces with sloughing. She has erythema and warmth in right burgess. She has plaques with erythema on her chin. There are petechial findings in her abdomen as well as her thighs however patient denies this being a new finding PSYCHIATRIC: Less distressed this morning. Appropriate mood and affect LABORATORY DATA: Please see below. IMAGING: CT head and neck with contrast-no acute findings. See radiology report for full details. CT chest and abdomen/pelvis with contrast orderedpending results MICROBIOLOGY: Please see below. 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 She met the SIRS criteria however source is still unknown and was started on broad spec antibiotics with Vanco and Zosyn. She was given 1 dose of fentanyl IV as well as hydrocodone for pain and the hospitalist team was asked to admit the patient for further management of her care. Skin erythema with sloughing -Most prominent in bilateral soles of feet as well as palmar surfaces extending into the dorsum of the hands bilaterally with sloughing. Also noted are scattered plaques on her chin as well as elbows. With these findings there was some initial suspicion for Stuart-Sumanth syndrome versus drug eruption versus pemphigoid vulgaris patient was placed on prednisone. -Have spoken with dermatology over the phone and per recommendations, the rash looks more psoriasiform with to f/u on serum zinc level as well as B12 and folate, thiamine with the top 3 differentials being nutritional deficiency, bazex syndrome from underlying malignancy, drug eruption (to include chemotherapy), unlikely to be Stuart-Sumanth syndrome. Pending vitamin panels. Also suggs scan patient to rule out underlying malignancy. -Dermatology on consultation appreciate their recommendations and further input. -CT head and neck with contrast have been ordered per recommendations from dermatologyno acute findings on imaging. -In light of recommendations from dermatology will start her on zinc supplementation while we await results of serum zinc levels as well as other vitamin deficiency follow-ups -Have also discussed this case with rheumatology on-call Dr. Mcginnis over the phone and per recommendations will order a CK as well as aldolase to work-up inflammatory myopathies. Positive SIRS criteria (source unknown) -Her blood cultures x2 and chest radiograph was unimpressive for any acute processes-she was on Vanco and Zosyn which was DC'd initially with suspicion of SJS. Will start her on p.o. doxycycline -Patient was initially hypotensive (however upon investigation patient states that her blood pressure runs low at baseline usually with systolic blood pressure of 90s.) On admission her heart rate was borderline tachycardic (100), also noted leukocytosis with initial elevated lactate however reflex lactate was within normal limits. Severe hypoalbuminemia -likely secondary to protein malnutrition i/s/o recent poor p.o. intake and chronic deficiencies related to gastric bypass -There may be some component of post bypass malabsorption/malnutrition -Chronic bilateral lower extremity edema with upper body cachexia concerning for anasarca status post albumin infusions have persisted ever since being admitted to [facility] last month per patient -Spot urine ordered which shows 0.5 g/day of protein excretion. -We refer ST shaunna and continue on a diet as per recommendations. Diffuse hyperesthesia - possibly 2/2 nutritional deficiencies and related neuropathy -Patient reports extreme burning in bilateral lower extremities as well as bilateral upper extremities. Suspect there may be a component of post bypass malabsorption/malnutrition however patient does report taking vitamin B12 vitamin D potassium supplementation. - Patient does take gabapentin as outpatient regimen. We will increase her gabapentin to 300 3 times daily -Vitamins including B1 (thiamine), B2 (riboflavin), B3 (niacin), B6 (pyridoxine)-ordered and will follow up on the results -Patient is noted to take buprenorphine on outpatient basis. Her pressures were soft in the ER and a one-time dose of fentanyl was ordered for pain control. Wi ll order for Tylenol as needed for further pain control. Patient has a morphine allergy listed with adverse reaction of hives-she was given Dilaudid this morning and tolerated it without any adverse effects. Will order tramadol for pain control. Would avoid any further fentanyl is patient does have a history of opioid use disorder. Elevated TSH -In the setting of hypotension with multiple complaints, TSH was checked and was significantly elevated 10.9; free T4 added -Patient meets SIRS criteria and has high suspicion for sepsis so TSH may be abnormally affected; nonetheless, consideration of possible underlying hypothyroidism Elevated AST and alkaline phosphatase -AST mildly elevated at 62, alkaline phosphatase elevated 362; ALT, and bilirubin WNL -Abdominal ultrasound ordered; hepatitis panel ordered pending results. Hyperkalemia, lab error -Patient's initial potassium was 5.8 however the sample was hemolyzed on repeat her potassium was within normal limits at 4.4. -We will continue to monitor her labs and electrolytes closely and replete as necessary. History of bilateral DVT and PE -Diagnoses from 2019 extensively discussed and past medical history -Continue with Eliquis Deconditioning and debility -Patient has severe malnutrition and deconditioning secondary to prolonged hospital stay as well as debility. -Order for PT OT once patient's pain is more under control. DVT prophylaxis: Eliquis CODE STATUS: Full Disposition: Pending clinical improvement VS, I&O, 24H, Fishbone Vital Signs/I&O Vital Signs Date Time Temp Pulse Resp B/P (MAP) Pulse Ox O2 Delivery O2 Flow Rate FiO2 09/02/21 11:07 16 09/02/21 04:00 97.0 75 98/71 (80) 99 Room Air I&O- Last 24 Hours up to 6 AM 09/02/21 06:00 Intake Total 1260.0 ml Output Total 500 ml Balance 760.0 ml Laboratory Data 24H LABS Laboratory Tests 2 09/01/21 13:09: 09/01/21 18:25: Alkaline Phosphatase 447H 09/01/21 21:45: Methicillin-Resist S.aureus DNA PCR DETECTEDA 09/02/21 09:23: Immature Granulocyte % (Auto) 0.9, Neutrophils (%) (Auto) 69.9H, Lymphocytes (%) (Auto) 23.2L, Monocytes (%) (Auto) 5.7, Eosinophils (%) (Auto) 0.1, Basophils (%) (Auto) 0.2, Neutrophils # (Auto) 6.3, Lymphocytes # (Auto) 2.1, Monocytes # (Auto) 0.5, Eosinophils # (Auto) 0.0, Basophils # (Auto) 0.0, Nucleated Red Blood Cells % (auto) 0.0, Anion Gap 5L, Glomerular Filtration Rate > 60.0, Calcium Level 7.4L, Tumor Marker Alpha Fetoprotein 1.3, Procalcitonin 0.96 09/02/21 11:30: Lab Scanned Report Transfusion Record CBC/BMP Laboratory Tests 09/02/21 09:23 Microbiology Microbiology 08/31/21 Blood Culture - Preliminary, Resulted No growth after 24 hours . All specim... 08/31/21 Blood Culture - Preliminary, Resulted No growth after 24 hours . All specim... GME ATTESTATION GME ATTESTATION My faculty preceptor for this patient encounter was physically present during the encounter and was fully available. All aspects of the patient interview, examination, medical decision making process, and medical care plan development were reviewed and approved by the faculty preceptor. The faculty preceptor is aware and concurs with the plan as stated in the body of this note and will attest to such by his/her cosignature. Lee Meyers DO Sep 02, 2021 12:42
[2021-09-02] MEDS: DOXYCYCLINE HYCLATE 100MG TABLET PO SCH ×2 (12:47→20:41)
[2021-09-02] MEDS: ZINC SULFATE 220 MG CAP PO SCH (12:47)
[2021-09-02] MEDS ORDERED: ISOVUE-370 76% 100ML VIAL As Ordered ONE (19:06)
[2021-09-02 20:00] VITALS: BP 90/60
[2021-09-02] MEDS: ACETAMINOPHEN TAB 650MG DOSE (2X325MG) PO PRN (20:42)
[2021-09-02] MEDS: NS 1,000 ML IV SCH (20:42)
--- NOTE | 2021-09-02 22:03 | REPVR ---
PROCEDURE INFORMATION: Exam: CT Abdomen And Pelvis With Contrast Exam date and time: 09/02/2021 8:15 PM Age: 46 years old Clinical indication: Other: Erythema skin; Additional info: Erythema skin with sloughing TECHNIQUE: Imaging protocol: Computed tomography of the abdomen and pelvis with contrast. Radiation optimization: All CT scans at this facility use at least one of these dose optimization techniques: automated exposure control; mA and/or kV adjustment per patient size (includes targeted exams where dose is matched to clinical indication); or iterative reconstruction. Contrast material: ISOVUE 370; Contrast volume: 100 ml; Contrast route: INTRAVENOUS (IV); COMPARISON: CT ABD/PEL W/IV CONTRAST ONLY 07/30/2021 12:40 PM FINDINGS: Lungs: Minimal bibasilar fibro-atelectatic change and minimal focal infiltrates, greatest in the lateral left lower lobe. Pleural spaces: Trace right pleural effusion. Liver: The liver attenuation is 41 Hounsfield units and the spleen is 149 Hounsfield units in the arterial phase. Gallbladder and bile ducts: Status post cholecystectomy. Mild biliary dilation which is attributed to prior cholecystectomy and is likely physiologic. The CBD measures 9 mm with tapering to the ampulla. Pancreas: Pancreatic atrophy for age. Spleen: The spleen is within normal limits for the arterial phase. Adrenal glands: Normal. No mass. Kidneys and ureters: Normal. No hydronephrosis. Stomach and bowel: Status post gastric bypass with mild fluid in the bypassed stomach which is slightly increased since the prior study. There is a contained or diverticular outpouching from the proximal gastric pouch containing gas and fluid which is increased since the prior study. Right-sided ligament of Treitz. Small bowel occupies the right abdomen and colon is noted in the left consistent with malrotation. Moderate stool throughout much of the colon. Borderline fluid distention of some small bowel segments with decreased distention overall since the prior study. Appendix: Suggestion of prior appendectomy. Intraperitoneal space: Unremarkable. No free air. No significant fluid collection. Vasculature: Unremarkable. No abdominal aortic aneurysm. Lymph nodes: Unremarkable. No enlarged lymph nodes. Urinary bladder: Unremarkable as visualized. Reproductive: Status post hysterectomy. Bones/joints: Unremarkable. No acute fracture. Soft tissues: Peripherally calcified mass in the anterior left abdomen which is consistent with a site of fat necrosis. Subcutaneous edema about the pelvis and to a lesser degree the abdomen. IMPRESSION: 1. Trace right pleural effusion with minimal bibasilar fibro-atelectatic change with minimal focal infiltrates, greatest in the lateral left lower lobe which appear to be new since 07/30/2021. 2. Probable fatty infiltration of the liver. 3. There has been prior cholecystectomy and hysterectomy. 4. Status post gastric bypass with mild retained fluid in the bypassed stomach which is slightly increased since 07/30/2021. There is a contained outpouching from the proximal gastric pouch with fluid and gas which is increased in size since the prior study. 5. 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 6. Borderline fluid distention of some small bowel segments with decreased small bowel distention since the prior study. 7. Pancreatic atrophy for age. Electronically signed by: Yovani Stevens On 09/02/2021 22:03:13 PM
--- NOTE | 2021-09-02 22:12 | REPVR ---
PROCEDURE INFORMATION: Exam: CT Chest With Contrast; Diagnostic Exam date and time: 09/02/2021 8:15 PM Age: 46 years old Clinical indication: Other: Erythema skin; Additional info: Erythema skin with sloughing TECHNIQUE: Imaging protocol: Diagnostic computed tomography of the chest with contrast. Radiation optimization: All CT scans at this facility use at least one of these dose optimization techniques: automated exposure control; mA and/or kV adjustment per patient size (includes targeted exams where dose is matched to clinical indication); or iterative reconstruction. Contrast material: ISOVUE 370; Contrast volume: 100 ml; Contrast route: INTRAVENOUS (IV); COMPARISON: CT ANGIO CHEST 07/30/2021 12:40 PM FINDINGS: Lungs: Minimal scattered fibro-atelectatic change and minimal scattered pulmonary infiltrates which are greatest in the anteromedial left upper lobe and lateral left lower lobe. Pleural spaces: Trace bilateral pleural effusions, right greater than left. Heart: Unremarkable. No cardiomegaly. No pericardial effusion. Heart RV/LV ratio: RV diameter is 3.4 cm, LV diameter is 4.0 cm. RV/LV ratio is 0.8. Pulmonary arteries: The main pulmonary artery measures 26 mm. There is pulmonary embolism extending into an anterior and lateral basal branch in the left lower lobe which extends toward the area of focal triangular infiltrate in the lateral left base and may reflect a site of pulmonary infarct. Minimal faint pulmonary embolism is noted in a medial branch of the right lower lobe. There is minimal pulmonary embolism extending into an anterior branch of the left upper lobe toward the area of focal infiltrate. There is minimal pulmonary embolism extending into a posteromedial branch of the left lower lobe Aorta: The ascending thoracic aorta measures 28 mm. Lymph nodes: Unremarkable. No enlarged lymph nodes. Bones/joints: Slight anterior wedge configuration or decreased height of T6-T7 which appear to be chronic. No acute fracture. Soft tissues: Unremarkable. IMPRESSION: 1. Mild scattered pulmonary embolism which is greatest extending into anterior basal branch of the left lower lobe but is noted in other branches of the lower lobes bilaterally and in the left upper lobe. 2. Trace bilateral pleural effusions, right greater than left with minimal scattered fibro-atelectatic change and scattered pulmonary infiltrates with triangular infiltrate in the lateral left lower lobe which may reflect a site of pulmonary infarct. Infiltrate in the anterior left upper lobe may be related to pulmonary embolism as well. 3. Normal RV/LV ratio of 0.8. Electronically signed by: Yovani Stevens On 09/02/2021 22:11:41 PM
[2021-09-02] MEDS ORDERED: HEPARIN DRIP 25,000 UNITS in IV 1 EA IV SCH (23:00)
[2021-09-02] MEDS ORDERED: HEPARIN SOD (PORCINE) 5000UNITS/ML 1ML VIAL/SYRINGE IV PRN (23:00)
[2021-09-03] VITALS: BP 93/63
[2021-09-03 00:23] LABS: HEMATOCRIT 25.8 % (36.0-47.0); HEMOGLOBIN 8.3 g/dl (12.0-15.5); MEAN CORPUSCULAR HGB CONC 32.2 g/dl (32.0-36.5); MEAN CORPUSCULAR VOLUME 96.3 fl (80.0-96.0); PLATELET COUNT, AUTOMATED 173 10^3/uL (150-450); RED BLOOD COUNT 2.68 10^6/uL (4.00-5.40); WHITE BLOOD COUNT 7.6 10^3/uL (4.0-10.0)
[2021-09-03 04:10] VITALS: BP 97/65
[2021-09-03] MEDS: traMADol 50 MG TAB PO PRN ×2 (05:32→12:47)
[2021-09-03 07:23] LABS: BASO % 0.1 % (0.0-1.0); EOS % 0.1 % (0.0-3.0); HEMATOCRIT 26.6 % (36.0-47.0); HEMOGLOBIN 8.4 g/dl (12.0-15.5); LYMPH # 2.5 10^3/uL (1.5-5.0); LYMPH % 30.3 % (24.0-44.0); MEAN CORPUSCULAR HEMOGLOBIN 30.5 pg (27.0-33.0); MEAN CORPUSCULAR HGB CONC 31.6 g/dl (32.0-36.5); MEAN CORPUSCULAR VOLUME 96.7 fl (80.0-96.0); MONO # 0.4 10^3/uL (0.0-0.8); MONO % 5.3 % (2.0-8.0); NEUTROPHILS # 5.1 10^3/uL (1.5-8.5); NEUTROPHILS % 62.8 % (36.0-66.0); PLATELET COUNT, AUTOMATED 190 10^3/uL (150-450); RED BLOOD COUNT 2.75 10^6/uL (4.00-5.40); WHITE BLOOD COUNT 8.1 10^3/uL (4.0-10.0)
[2021-09-03 07:37] LABS: BLOOD UREA NITROGEN 16 MG/DL (7-18); CALCIUM LEVEL 7.4 MG/DL (8.5-10.1); CARBON DIOXIDE LEVEL 23 MEQ/L (21-32); CHLORIDE LEVEL 113 MEQ/L (98-107); CREATININE FOR GFR 0.26 MG/DL (0.55-1.30); GLOMERULAR FILTRATION RATE > 60.0 (>58); GLUCOSE, FASTING 69 MG/DL (70-100); POTASSIUM SERUM 4.3 MEQ/L (3.5-5.1); SODIUM LEVEL 141 MEQ/L (136-145)
[2021-09-03 08:00] VITALS: BP 121/74
[2021-09-03] MEDS: predniSONE 50 MG TAB PO SCH (09:25)
[2021-09-03] MEDS: DOXYCYCLINE HYCLATE 100MG TABLET PO SCH (09:26)
[2021-09-03] MEDS: FERROUS SULFATE 325MG TAB PO SCH (09:26)
[2021-09-03] MEDS: ZINC SULFATE 220 MG CAP PO SCH (09:26)
[2021-09-03] MEDS: GABAPENTIN 300 MG CAP PO SCH (09:26)
[2021-09-03] MEDS ORDERED: ZINC220CA PO (11:31)
[2021-09-03] MEDS ORDERED: XARE15TA PO (11:31)
[2021-09-03] MEDS ORDERED: BETA5OI TOP (11:32)
[2021-09-03 12:00] VITALS: BP 101/66
--- NOTE | 2021-09-03 12:50 | DS.PDOC ---
Discharge Summary General Date of Admission Aug 31, 2021 at 20:23 Date of Discharge September 03, 2021 Specialist/Consultants Involve: NARA GONZALES MD Discharge Summary PROCEDURES PERFORMED DURING STAY: None ADMITTING DIAGNOSES: Severe hypoalbuminemia/malabsorption/malnutrition/microcytic anemia/diarrhea status post 2009 Lila-en-Y gastric bypass surgery -Surgery was done by Dr. Roper in [place]; patient reports following with Dr. Roper through 2014; multiple recent documentation states patient has been noncompliant with most recent follow-ups/supplementation Bilateral DVT and PE in December 09 -Right occlusive DVT of femoral vein upper mid thigh -Left lower extremity DVT completely occluding left femoral/popliteal vein -Bilateral PE via 11/26/2019 CTA chest (anterior segment of right upper lobe, lateral segment of right lower lobe, and anteromedial and lateral segments of the left lower lobe; no evidence for RV strain) History of peptic ulcers Bilateral plantar fasciitis Opioid use disorder, taking Suboxone as outpatient for the past 2 years (follows with [facility] in [place]) DISCHARGE DIAGNOSES: Mild scattered pulmonary embolism anterior basal branch of left lower lobe and other branches of the lower lobes bilaterally and in the left upper lobe Severe hypoalbuminemia/malabsorption/malnutrition/microcytic anemia/diarrhea status post 2009 Lila-en-Y gastric bypass surgery -Surgery was done by Dr. Roper in [place]; patient reports following with Dr. Roper through 2014; multiple recent documentation states patient has been noncompliant with most recent follow-ups/supplementation Bilateral DVT and PE in December 09 -Right occlusive DVT of femoral vein upper mid thigh -Left lower extremity DVT completely occluding left femoral/popliteal vein -Bilateral PE via 11/26/2019 CTA chest (anterior segment of right upper lobe, lateral segment of right lower lobe, and anteromedial and lateral segments of the left lower lobe; no evidence for RV strain) History of peptic ulcers Bilateral plantar fasciitis Opioid use disorder, taking Suboxone as outpatient for the past 2 years (follows with [facility] in [place]) COMPLICATIONS/CHIEF COMPLAINT: Hypotension. HISTORY OF PRESENT ILLNESS: Carolyn is a 46yo female w/ an extensive PMHx most notable for malnutrition and severe hypoalbuminemia, diarrhea, and microcytic anemia s/p bypass sx, B/l DVT & PE (11/2019) on eliquis, PVD, and significant recent deconditioning, who presented to the ED on 08/31/21 via EMS c/o whole body burning pain that is very sensitive to touch and most prominent over lower extremities, as well as overall debility. Patient was admitted to [facility] just last month from for abdominal pain with imaging findings consistent with enteritis, malnutrition/mall absorption/generalized weakness. There was a concern for an acute GI infection based on an elevated procalcitonin and patient was treated with IV ciprofloxacin and Flagyl. She also received albumin infusion for 2 days (1 g/kg). Per reports, the patient had been noncompliant with her gastric bypass surgeon as outpatient. Due to her considerable malnutrition/malabsorption issues in the setting of the abdominal pain and enteritis, gastroenterology evaluation was deemed warranted. At the time patient was admitted, [facility] did not have GI coverage and so patient was subsequently transferred on 08/05 to [facility] for for gastroenterology evaluation. In [facility], patient underwent an EGD and colonoscopy that were essentially unremarkable. Laboratory findings suggested severe vitamin D deficiency. A swaging machine adjuster was consulted and patient was recommended to begin supplementation with B12, vitamin D, calcium, multivitamin, and iron supplementation. Patient was also hypokalemic and that was thought to be secondary to home oral furosemide for lower extremity edema. Ultimately the etiology of her severe hypoalbuminemia was unclear at [facility] with consideration for protein-losing enteropathy, severe malnutrition, protein- losing nephropathy, or heart failure. Upon discharge home from [place], patient has yet to follow-up with a local swaging machine adjuster or her PCP. Patient has multiple complaints today upon evaluation which include: Bilateral lower extremity edema that has been present for the past 3 months (RLE > LLE last few days), erythema of bilateral feet most prominent over the plantar aspect that has been present for the past week, whole-body intense "burning" pain for the past 3-4 days that is most intense over lower extremities, b/l hand swelling/erythema/skin peeling over the past 3-4 days, dysphagia and odynophagia over the past few weeks that has limited her to only fluids and soft foods for the past 2 weeks, widespread hair loss for the past 3 months, and both dry eyes and dry mouth for the past month. She has had a significant progressive i mmobility since coming back from [place] and currently has only been moving for the past 2 weeks between her bed and bathroom with the assistance of her son. HOSPITAL COURSE: Skin erythema with sloughing -Most prominent in bilateral soles of feet as well as palmar surfaces extending into the dorsum of the hands bilaterally with sloughing. Also noted are scattered plaques on her chin as well as elbows. With these findings there was some initial suspicion for Stuart-Sumanth syndrome versus drug eruption versus pemphigoid vulgaris patient was placed on prednisone. -Have spoken with dermatology over the phone and per recommendations, the rash looks more psoriasiform with to f/u on serum zinc level as well as B12 and folate, thiamine with the top 3 differentials being nutritional deficiency, bazex syndrome from underlying malignancy, drug eruption (to include chemotherapy), unlikely to be Stuart-Sumanth syndrome. Pending vitamin panels. Also suggs scan patient to rule out underlying malignancy (suggs scanning did not show any underlying malignancy.) -Dermatology on consultation appreciate their recommendations and further input. -CT head and neck with contrast have been ordered per recommendations from dermatologyno acute findings on imaging. -In light of recommendations from dermatology will start her on zinc supplementation while we await results of serum zinc levels as well as other vitamin deficiency follow-ups -We will give her a prescription for 30-day zinc supplementation and will need follow-up on other vitamin levels pending currently per her PCP -Have also discussed this case with rheumatology on-call Dr. Mcginnis over the phone and per recommendations will order a CK as well as aldolase to work-up inflammatory myopathies. -Patient will need follow-up with PCP within 7 days of hospital discharge to go over labs that are still pending during this hospitalization -Patient will need to follow-up with a rn internship within 7 days of hospital Positive SIRS criteria (source unknown) -Her blood cultures x2 and chest radiograph were unimpressive for any acute processes-she was on Vanco and Zosyn which was DC'd initially with suspicion of SJS. Will start her on p.o. doxycycline -Patient was initially hypotensive (however upon investigation patient states t hat her blood pressure runs low at baseline usually with systolic blood pressure of 90s.) On admission her heart rate was borderline tachycardic (100), also noted leukocytosis with initial elevated lactate however reflex lactate was within normal limits. Mild scattered pulmonary embolism -Patient states that she has been compliant on Eliquis 5 mg p.o. twice daily -This is failure of her Eliquis and we will DC that on discharge and start her on Xarelto 15 mg p.o. twice daily for 21 days and then 20 mg p.o. daily thereafter. -Patient will need to follow-up with PCP within 7 days of hospital discharge for prescriptions of the 20 mg p.o. daily after she finishes her 21-day course of the 50 mg p.o. twice daily regimen. Severe hypoalbuminemia -likely secondary to protein malnutrition i/s/o recent poor p.o. intake and chronic deficiencies related to gastric bypass -There may be some component of post bypass malabsorption/malnutrition -Chronic bilateral lower extremity edema with upper body cachexia concerning for anasarca status post albumin infusions have persisted ever since being admitted to [facility] last month per patient -Spot urine ordered which shows 0.5 g/day of protein excretion. -We refer ST shaunna and continue on a diet as per recommendations. -Patient will need to follow-up PCP and will need swaging machine adjuster referral Diffuse hyperesthesia - possibly 2/2 nutritional deficiencies and related neuropathy -Patient reports extreme burning in bilateral lower extremities as well as bilateral upper extremities. Suspect there may be a component of post bypass malabsorption/malnutrition however patient does report taking vitamin B12 vitamin D potassium supplementation. - Patient does take gabapentin as outpatient regimen. We will increase her gabapentin to 300 3 times daily -Vitamins including B1 (thiamine), B2 (riboflavin), B3 (niacin), B6 (pyridoxine)-ordered and will follow up on the results -Patient is noted to take buprenorphine on outpatient basis. Her pressures were soft in the ER and a one-time dose of fentanyl was ordered for pain control. Will order for Tylenol as needed for further pain control. Patient has a morphine allergy listed with adverse reaction of hives-she was given Dilaudid this morning and tolerated it without any adverse effects. Will order tramadol for pain control. Would avoid any further fentanyl is patient does have a history of opioid use disorder. Elevated TSH -In the setting of hypotension with multiple complaints, TSH was checked and was significantly elevated 10.9; free T4 added -Patient meets SIRS criteria and has high suspicion for sepsis so TSH may be abnormally affected; nonetheless, consideration of possible underlying hypothyroidism -Follow-up with PCP Elevated AST and alkaline phosphatase -AST mildly elevated at 62, alkaline phosphatase elevated 362; ALT, and bilirubin WNL -Liver ultrasound shows fatty infiltration of liver; hepatitis panel ordered and within normal limits. -Follow-up with PCP for liver ultrasound findings Hyperkalemia, lab error -Patient's initial potassium was 5.8 however the sample was hemolyzed on repeat her potassium was within normal limits at 4.4. -We will continue to monitor her labs and electrolytes closely and replete as necessary. History of bilateral DVT and PE -Diagnoses from 2019 extensively discussed and past medical history -Eliquis failure. We will prescribe Xarelto 15 mg p.o. twice daily for the first 21 days then proceed with 20 mg p.o. daily thereafter. -Follow-up with PCP Deconditioning and debility -Patient has severe malnutrition and deconditioning secondary to prolonged hospital stay as well as debility. -Order for PT OT once patient's pain is more under control. DVT prophylaxis: Eliquis CODE STATUS: Full DISCHARGE MEDICATIONS: Please see below. ALLERGIES: Please see below. PHYSICAL EXAMINATION ON DISCHARGE: VITAL SIGNS: Please see below. VITAL SIGNS: See Below GENERAL APPEARANCE: cachetic looking female lying upright no acute distress. AAOx3 HEENT: Loss of hair over the vertex of the scalp. Normocephalic. Atraumatic. Noninjected, anicteric sclera. PERRLA. EOMI. mild conjunctival paler, moist oral mucosa Neck: No significant lymphadenopathy appreciated. Chest: Patient's upper body appears cachectic with signs of wasting in neck and pectoral musculature. CARDIOVASCULAR: Normal S1, S2. No significant murmurs, gallops, rubs appreciated. LUNGS: No wheezing rhonchi rales appreciated. ABDOMEN: Soft, nondistended and somewhat sunken abdomen. Normal bowel sounds, no tenderness, or guarding on palpation MUSCULOSKELETAL: 4 out of 5 strength throughout. Range of motion on limited throughout EXTREMITIES/SKIN: Erythema in bilateral palms fingers as well as bilateral soles of feet much improved and less erythematous. Still peeling of the skin seen NEUROLOGICAL: No focal neuro deficits appreciated. PSYCHIATRIC: Less distressed this morning. Appropriate mood and affect LABORATORY DATA: Please see below. IMAGING: CT chest with IV contrast 1. Mild scattered pulmonary embolism which is greatest extending into anterior basal branch of the left lower lobe but is noted in other branches of the lower lobes bilaterally and in the left upper lobe. 2. Trace bilateral pleural effusions, right greater than left with minimal scattered fibro-atelectatic change and scattered pulmonary infiltrates with triangular infiltrate in the lateral left lower lobe which may reflect a site of pulmonary infarct. Infiltrate in the anterior left upper lobe may be related to pulmonary embolism as well. 3. Normal RV/LV ratio of 0.8. Portable chest x-ray, 08/31/2021 FINDINGS: There is no acute infiltrate or pulmonary edema. Lungs are clear. The heart is not significantly enlarged. The mediastinal silhouette is unremarkable. The visualized osseous structures are intact. IMPRESSION: No acute pulmonary disease. Liver ultrasound IMPRESSION: 1. Prior postoperative cholecystectomy. 2. Fatty infiltration of the liver. 3. Mild accentuation of extrahepatic bile ducts which may be on the basis of cholecystectomy. Head and neck CT with IV IMPRESSION: No acute findings PROGNOSIS: Stable ACTIVITY: As tolerated DIET: Regular Discharge home ITEMS TO FOLLOWUP ON ON OUTPATIENT: 1. PCP follow-up within 7 days of hospital discharge Xarelto prescription after 21 days of initial dosing of 50 mg p.o. twice daily and then 20 mg p.o. daily thereafter. We will also need to follow-up on all the labs that are still pending within this hospitalization which have not resulted yet 2. Dermatology referral and follow-up within 7 days of hospital discharge DISCHARGE CONDITION: Stable TIME SPENT ON DISCHARGE: 45 minutes. Post discharge addendum by Dr. Ma: Was alerted that patient's insurance required a prior authorization for Xarelto. I was able to submit one (reference number [id number]). I then called the patient's pharmacy to ask them if they could supply patient with enough Xarelto until we hear back from the prior Auth. [place] back from insurance company who informed me that the prior office denied do to them wanting the patient to try Savaysa before Xarelto. Savaysa 30 mg daily has been sent to her pharmacy. I called her pharmacy to confirm the receive the medication. They had but they did not have any 30 mg tablets in stock. I asked Gary, the pharmacist there, if he could tell the patient to cut the pill in half until she can obtain the 30 mg tablets. He said he would. Vital Signs/I&Os Vital Signs Date Time Temp Pulse Resp B/P (MAP) Pulse Ox O2 Delivery O2 Flow Rate FiO2 09/03/21 08:00 97.6 72 17 121/74 (90) 99 Room Air I&O- Last 24 Hours up to 6 AM 09/03/21 06:00 Intake Total 906.0 ml Output Total 400 ml Balance 506.0 ml Laboratory Data Labs 24H Laboratory Tests 2 09/02/21 23:47: Nucleated Red Blood Cells % (auto) 0.0, Activated Partial Thromboplast Time 41.3H 09/03/21 05:32: Nucleated Red Blood Cells % (auto) 0.0, Immature Granulocyte % (Auto) 1.4, Neutrophils (%) (Auto) 62.8, Lymphocytes (%) (Auto) 30.3, Monocytes (%) (Auto) 5.3, Eosinophils (%) (Auto) 0.1, Basophils (%) (Auto) 0.1, Neutrophils # (Auto) 5.1, Lymphocytes # (Auto) 2.5, Monocytes # (Auto) 0.4, Eosinophils # (Auto) 0.0, Basophils # (Auto) 0.0, Anion Gap 5L, Glomerular Filtration Rate > 60.0, Calcium Level 7.4L 09/03/21 05:38: Activated Partial Thromboplast Time 119.7H CBC/BMP Laboratory Tests 09/02/21 23:47 09/03/21 05:32 Microbiology Microbiology 08/31/21 Blood Culture - Preliminary, Resulted No Growth after 48 hours. All Specime... 08/31/21 Blood Culture - Preliminary, Resulted No Growth after 48 hours. All Specime... Discharge Medications Scheduled Betamethasone Dip (Betamethasone Dipropionate) 15 Gm Oint...g., 1 APLCT TOP BID Edoxaban Tosylate (Savaysa) 30 Mg Tablet, 30 MG PO DAILY Ergocalciferol (Vitamin D2) (Vitamin D2) 50,000 Units Cap, 50,000 UNITS PO QWEEK, (Reported) MONDAYS Ferrous Sulfate (Ferrous Sulfate) 325 Mg Tablet.dr, 325 MG PO BID, (Reported) Furosemide (Furosemide) 40 Mg Tablet, 40 MG PO DAILY, (Reported) Multivitamin with Folic Acid (Tab-A-Loretta Tablet) 400 Mcg Tablet, 400 MCG PO DAILY, (Reported) Rivaroxaban (Xarelto) 15 Mg Tablet, 15 MG PO BID Zinc Sulfate (Zinc Sulfate) 220 Mg Capsule, 220 MG PO DAILY Allergies Coded Allergies: morphine (Verified Allergy, Intermediate, hives, 11/26/19) GME ATTESTATION GME ATTESTATION My faculty preceptor for this patient encounter was physically present during the encounter and was fully available. All aspects of the patient interview, examination, medical decision making process, and medical care plan development were reviewed and approved by the faculty preceptor. The faculty preceptor is aware and concurs with the plan as stated in the body of this note and will attest to such by his/her cosignature. Lee Meyers DO Sep 03, 2021 12:49 Eligio Ma DO Sep 04, 2021 15:38
[2021-09-03 20:12] LABS: ALDOLASE 10.1 U/L (3.3-10.3); CK 1 (BB) 0 % (0); CK 2 (MB) 0 % (0-3); CK 3 (MM) 100 % (97-100); CK MACRO I PERCENT 0 % (Not Observed); CK MACRO II PERCENT 0 % (Not Observed); CK TOTAL 25 U/L (32-182)
[2021-09-04] MEDS ORDERED: [UNRECOGNIZED DRUG - CODE] PO (15:23)
[2021-09-06] MEDS ORDERED: VITAMIN D 50,000 UNITS CAPSULE (ERGOCALCIFEROL 1.25MG) PO SCH (09:00)
== END 2021-09-03 13:40 | disposition home or self-care (01) | DRG 421 ==
LOC: M ED 13:05 → EDBD 13:05 → M ED INP 20:23 → ENRESERV 09-01 16:46 → M PCU 09-01 17:22
PROVIDERS: ADMIT Internal Medicine; ATTEND Internal Medicine
DX: E46 Unspecified protein-calorie malnutrition (principal); K91.2 Postsurgical malabsorption, not elsewhere classified; E88.09 Other disorders of plasma-protein metabolism, not elsewhere classified; D50.9 Iron deficiency anemia, unspecified; R19.7 Diarrhea, unspecified; Z86.718 Personal history of other venous thrombosis and embolism; Z86.711 Personal history of pulmonary embolism; E55.9 Vitamin D deficiency, unspecified; Z90.49 Acquired absence of other specified parts of digestive tract; Z87.891 Personal history of nicotine dependence; Z98.84 Bariatric surgery status; Z20.822 Contact with and (suspected) exposure to COVID-19; Z79.01 Long term (current) use of anticoagulants; Z79.899 Other long term (current) drug therapy; R53.81 Other malaise; Z88.5 Allergy status to narcotic agent; L65.9 Nonscarring hair loss, unspecified; M72.2 Plantar fascial fibromatosis

== ENCOUNTER 2021-09-23 14:09 | Inpatient (IN) | payer OTHER ==
[~2021-09-23] VITALS: Ht 154.9 cm; Wt 50.7 kg
[~2021-09-23 14:09] MED LIST changes: +BETA5OI TOP; +ERGO500029 PO; +FERR325T3 PO; +MULT400T10 PO; +ZINC220CA PO; +[UNRECOGNIZED DRUG - CODE] PO
[2021-09-23 16:18] VITALS: BP 104/61
[2021-09-23 16:52] LABS: BASO # 0.1 10^3/uL (0.0-0.2); BASO % 0.7 % (0.0-1.0); EOS # 0.1 10^3/uL (0.0-0.5); EOS % 1.5 % (0.0-3.0); HEMATOCRIT 31.1 % (36.0-47.0); HEMOGLOBIN 9.6 g/dl (12.0-15.5); LYMPH % 21.9 % (24.0-44.0); MEAN CORPUSCULAR HEMOGLOBIN 31.9 pg (27.0-33.0); MEAN CORPUSCULAR HGB CONC 30.9 g/dl (32.0-36.5); MEAN CORPUSCULAR VOLUME 103.3 fl (80.0-96.0); MONO # 0.8 10^3/uL (0.0-0.8); MONO % 8.3 % (2.0-8.0); NEUTROPHILS # 6.1 10^3/uL (1.5-8.5); PLATELET COUNT, AUTOMATED 396 10^3/uL (150-450); RED BLOOD COUNT 3.01 10^6/uL (4.00-5.40); WHITE BLOOD COUNT 9.1 10^3/uL (4.0-10.0)
[2021-09-23] MEDS ORDERED: ACETAMINOPHEN TAB 650MG DOSE (2X325MG) PO PRN (17:10)
[2021-09-23 17:20] LABS: ALBUMIN 2.1 GM/DL (3.2-5.2); ALT/SGPT 37 U/L (12-78); AMYLASE 17 U/L (25-115); BILIRUBIN,TOTAL 0.2 MG/DL (0.2-1.0); BLOOD UREA NITROGEN 11 MG/DL (7-18); C REACTIVE PROTEIN QUANTITATIV 0.64 MG/DL (0.00-0.30); CALCIUM LEVEL 8.4 MG/DL (8.5-10.1); CARBON DIOXIDE LEVEL 28 MEQ/L (21-32); CHLORIDE LEVEL 110 MEQ/L (98-107); CK-MB VALUE MASS 1.9 NG/ML (<3.6); CPK CREATINE PHOSPHOKINASE 52 U/L (26-192); CREATININE FOR GFR 0.56 MG/DL (0.55-1.30); ERYTHROCYTE SEDIMENTATION RATE 20 mm/hr (0-20); GLOMERULAR FILTRATION RATE > 60.0 (>58); GLUCOSE, FASTING 103 MG/DL (70-100); LIPASE 27 U/L (73-393); MB/CK RELATIVE INDEX 3.65 (< OR =4); NT-PRO BNP 238 PG/ML (<125); POTASSIUM SERUM 4.2 MEQ/L (3.5-5.1); SODIUM LEVEL 143 MEQ/L (136-145); TOTAL PROTEIN 4.6 GM/DL (6.4-8.2); TROPONIN I < 0.02 NG/ML (< 0.10)
[2021-09-23] MEDS: diphenhydrAMINE 50MG/ML VIAL (J1200) IV PRN ×2 (17:35→23:50)
[2021-09-23] MEDS: MORPHINE 2 MG/ML 1ML VIAL (J2270) IV PRN ×2 (17:35→23:51)
[2021-09-23] MEDS ORDERED: [UNRECOGNIZED DRUG - CODE] PO (17:49)
[2021-09-23] MEDS ORDERED: POTA20TA6 PO (17:49)
[2021-09-23] MEDS ORDERED: GABA-282 PO (17:49)
[2021-09-23] MEDS ORDERED: FURO20TA2 PO (17:49)
[2021-09-23] MEDS ORDERED: BIOT10009 PO (17:49)
[2021-09-23] MEDS ORDERED: HOME MED LIST COMPLETE! XX SCH (17:50)
--- NOTE | 2021-09-23 18:07 | HPEPDOC ---
General Date of Admission Sep 23, 2021 at 15:53 Date of Service: Sep 23, 2021 Chief Complaint The patient is a 46-year-old female admitted with a reason for visit of Lymphacytic Colitis. History of Present Illness Mrs. Lin is a 46-year-old female with hypoalbuminemia secondary to gastric bypass surgery and recent bilateral DVT and PE who presents with worsening lower extremity pain. Patient tells me that for the past 3 months, she has been having worsening swelling of her legs. She used to wear a pants size 2. Today she had an office visit with her PCP. She was in intractable pain and was directly admitted here. Patient denies any fever or chills, chest pain, dyspnea, abdominal pain, diarrhea, or dysuria. She tells me that she is eating a lot but has not helped her swelling of the legs. She tells me she was recently diagnosed with microscopic colitis, but denies any diarrhea. When I saw patient, her legs were large, swollen, and tender. The swelling was all the way up to her hip. She tells me last week she was found to have bilateral DVT and was put on edoxaban. Patient be admitted for intractable pain. Home Medications Scheduled Betamethasone Dip (Betamethasone Dipropionate) 15 Gm Oint...g., 1 APLCT TOP BID Edoxaban Tosylate (Savaysa) 30 Mg Tablet, 30 MG PO DAILY Ergocalciferol (Vitamin D2) (Vitamin D2) 50,000 Units Cap, 50,000 UNITS PO QWEEK, (Reported) MONDAYS Ferrous Sulfate (Ferrous Sulfate) 325 Mg Tablet.dr, 325 MG PO BID, (Reported) Furosemide (Furosemide) 40 Mg Tablet, 40 MG PO DAILY, (Reported) Multivitamin with Folic Acid (Tab-A-Loretta Tablet) 400 Mcg Tablet, 400 MCG PO DAILY, (Reported) Rivaroxaban (Xarelto) 15 Mg Tablet, 15 MG PO BID Zinc Sulfate (Zinc Sulfate) 220 Mg Capsule, 220 MG PO DAILY Allergies Coded Allergies: No Known Allergies (Unverified , 09/23/21) Past Medical History Medical History 1. Hypoalbuminemia secondary to malabsorption from gastric bypass surgery 2. Bilateral DVT and PE in November 2019 3. History of peptic ulcers 4. Bilateral plantar fasciitis 5. Opiate use disorder Surgical History 1. Lila-en-Y gastric bypass surgery 2. Incisional hernia repair x4 3. Cholecystectomy 4. Appendectomy 5. EGD with cauterization of ulcer Family History Father: History hypertension Mother: History of hyperlipidemia Social History * Smoker: former Smoker Alcohol: Denies Drugs: denies A-FIB/CHADSVASC A-FIB History Current/History of A-Fib/PAF?: No Review of Systems Constitutional: Denies: Chills, Fever Eyes: Denies: Vision change ENT: Denies: Sore Throat Skin: Reports: Rash (Bilateral leg erythema and swelling) Pulmonary: Denies: Dyspnea Cardiovascular: Denies: Chest Pain Gastrointestinal: Denies: Abdominal Pain, Diarrhea, Constipation Genitourinary: Denies: Dysuria Hematologic: Denies: Bruising Musculoskeletal: Reports: Leg Pain, Foot Pain Neurological: Denies: Numbness Psych: Denies: Anxiety, Depression Physical Examination General Exam: Positive: Alert, Cooperative Eye Exam: Positive: EOMI; Negative: Sclera icteric ENT Exam: Positive: Atraumatic Neck Exam: Positive: Supple Chest Exam: Positive: Clear to auscultation Heart Exam: Positive: Rate Normal, Regular Rhythm Abdomen Exam: Positive: BS Hyperactive, Soft; Negative: Tenderness Extremity Exam: Positive: Edema (Bilateral pitting edema with swelling and tenderness), Tenderness, Swelling, Other (Legs are warm) Neuro Exam: Positive: Normal Speech, Cranial Nerves 3-12 NL Psych Exam: Positive: Anxiety Vital Signs Vital Signs Date Time Temp Pulse Resp B/P (MAP) Pulse Ox O2 Delivery O2 Flow Rate FiO2 09/23/21 17:35 18 Room Air 09/23/21 16:18 97.9 85 104/61 (75) 99 Laboratory Data Labs 24H Laboratory Tests 2 09/23/21 16:33: Immature Granulocyte % (Auto) 0.6, Neutrophils (%) (Auto) 67.0H, Lymphocytes (%) (Auto) 21.9L, Monocytes (%) (Auto) 8.3H, Eosinophils (%) (Auto) 1.5, Basophils (%) (Auto) 0.7, Neutrophils # (Auto) 6.1, Lymphocytes # (Auto) 2.0, Monocytes # (Auto) 0.8, Eosinophils # (Auto) 0.1, Basophils # (Auto) 0.1, Nucleated Red Blood Cells % (auto) 0.0, Erythrocyte Sedimentation Rate 20, Anion Gap 5L, Glomerular Filtration Rate > 60.0, Calcium Level 8.4L, Total Bilirubin 0.2, Aspartate Amino Transf (AST/SGOT) 34, Alanine Aminotransferase (ALT/SGPT) 37, Alkaline Phosphatase 141H, Total Creatine Kinase 52, Creatine Kinase MB 1.9, Creatine Kinase MB Relative Index 3.65, Troponin I < 0.02, C-Reactive Protein, Quantitative 0.64H, HN-Vqb-C-Type Natriuretic Peptide 238H, Total Protein 4.6L, Albumin 2.1L, Albumin/Globulin Ratio 0.8L, Amylase Level 17L, Lipase 27L CBC/BMP Laboratory Tests 09/23/21 16:33 Microbiology Microbiology 09/23/21 Respiratory Virus Panel (PCR) (LATHA), Received Pending Assessment/Plan Mrs. Lin is a 46-year-old female with hypoalbuminemia secondary to gastric bypass surgery and recent bilateral DVT and PE who presents with worsening lower extremity pain. Her lower extremity swelling is most likely secondary to hy poalbuminemia. This is most likely secondary to malabsorption from gastric bypass surgery. Otherwise we will look into hypothyroidism as patient had a TSH of 10 on last admission. We will also check a ESR and CRP. Plan / VTE VTE Prophylaxis Ordered?: Yes Plan Plan 1. Hypoalbuminemia secondary to malnutrition from gastric bypass Dietary consult placed Requested that water be substituted with Ensure for higher calorie and nu trition 2. Severe pain from diffuse anasarca of the legs laterally Patient swelling goes all the way up to her hip Most likely secondary to hypoalbuminemia and anemia Elevate legs above heart Pain control with this acetaminophen, tramadol, and morphine Morphine causes hives but she has not had morphine recently. We will combine morphine with Benadryl Continue gabapentin 3. Suspected hypothyroidism In August 31, 2021 TSH was 10.9 and free T4 was 0.66 We will repeat thyroid studies If still hypothyroid, will start on levothyroxine 4. PE and DVT Patient was switched to edoxaban We do not have edoxaban here Switch to apixaban 5. Microscopic colitis We will need to confirm with PCP Patient denies any diarrhea 6. DVT prophylaxis Apixaban Disposition: Pending clinical improvement DARYL ARGUELLES DO Sep 23, 2021 18:07
[2021-09-23 19:01] LABS: INR 1.16; PROTHROMBIN TIME 15.3 SECONDS (12.7-14.5)
[2021-09-23] MEDS: FERROUS SULFATE 325MG TAB PO SCH (19:57)
[2021-09-23] MEDS: GABAPENTIN 300 MG CAP PO SCH (19:57)
[2021-09-23] MEDS: traMADol 50 MG TAB PO PRN (19:58)
[2021-09-23 20:13] LABS: PREALBUMIN 8.3 MG/DL (20.0-40.0)
--- NOTE | 2021-09-23 20:15 | ECGEPIP ---
[facility] Test Date: 2021-09-23 Pat Name: AMANDA SHARP Department: Room: [place] [address] Gender: Female Equity Manager: STEFANO : 1975 Requested By: TAYO Conley Order Number: [id number] Reading MD: Xander Chauhan Measurements Intervals [place] Rate: 62 P: 57 WA: 130 QRS: 61 QRSD: 72 T: 60 QT: 464 QTc: 470 Interpretive Statements Normal sinus rhythm Nonspecific T wave abnormality Prolonged QT Compared to 08/31/21 HR is slower but otherwise minimal change Electronically Signed on 09-23-2021 20:15:08 EDT by Xander Chauhan
[2021-09-23 20:41] LABS: THYROID PEROXIDASE ANTIBODY < 28.0 U/ML (<60.0); TOTAL T3 58.9 NG/DL (60.0-181.0)
[2021-09-24] VITALS (7 sets, daily range): BP systolic 80–102; BP diastolic 50–58
[2021-09-24 04:55] LABS: HEMATOCRIT 28.5 % (36.0-47.0); HEMOGLOBIN 8.5 g/dl (12.0-15.5); MEAN CORPUSCULAR HGB CONC 29.8 g/dl (32.0-36.5); MEAN CORPUSCULAR VOLUME 107.1 fl (80.0-96.0); PLATELET COUNT, AUTOMATED 308 10^3/uL (150-450); RED BLOOD COUNT 2.66 10^6/uL (4.00-5.40); WHITE BLOOD COUNT 6.4 10^3/uL (4.0-10.0)
[2021-09-24 05:14] LABS: BLOOD UREA NITROGEN 11 MG/DL (7-18); CALCIUM LEVEL 7.6 MG/DL (8.5-10.1); CARBON DIOXIDE LEVEL 24 MEQ/L (21-32); CHLORIDE LEVEL 116 MEQ/L (98-107); CREATININE FOR GFR 0.33 MG/DL (0.55-1.30); GLOMERULAR FILTRATION RATE > 60.0 (>58); GLUCOSE, FASTING 79 MG/DL (70-100); POTASSIUM SERUM 4.1 MEQ/L (3.5-5.1); SODIUM LEVEL 142 MEQ/L (136-145)
[2021-09-24] MEDS: MORPHINE 2 MG/ML 1ML VIAL (J2270) IV PRN ×4 (07:28→22:39)
[2021-09-24] MEDS: diphenhydrAMINE 50MG/ML VIAL (J1200) IV PRN ×2 (07:29→13:20)
[2021-09-24] MEDS: APIXABAN 5 MG TAB (ELIQUIS) PO SCH ×2 (09:00→20:12)
[2021-09-24] MEDS ORDERED: FUROSEMIDE 20 MG TAB PO SCH (09:00)
[2021-09-24] MEDS: THIAMINE 200MG 2ML VIAL IV SCH (09:02)
[2021-09-24] MEDS: FERROUS SULFATE 325MG TAB PO SCH ×2 (09:02→20:11)
[2021-09-24] MEDS: MULTIVITAMINS/MINERALS THERAP 1 TAB PO SCH (09:02)
[2021-09-24] MEDS: POTASSIUM CHLORIDE 10MEQ SR TABLET PO SCH (09:03)
[2021-09-24] MEDS: GABAPENTIN 300 MG CAP PO SCH ×3 (09:03→20:11)
[2021-09-24] MEDS ORDERED: LIDOCAINE 1% MDV 20ML VIAL As Ordered ONE (10:32)
[2021-09-24 11:32] LABS: PERCENT SATURATION 33.3 % (13.2-45.0)
[2021-09-24] MEDS ORDERED: NS 500 ML IV ONE (13:35)
--- NOTE | 2021-09-24 13:57 | IPNPDOC ---
Subjective Date Seen The patient was seen on 09/24/21. Subjective Chief Complaint/HPI Mrs. Lin is a 46-year-old female with hypoalbuminemia secondary to gastric bypass surgery and recent bilateral DVT and PE who presents with worsening lower extremity pain. Patient was seen this morning. She still has pain in her legs, but looks more comfortable than the day prior. Patient's blood pressure would not tolerate Lasix boluses. Will try IV albumin and IV lasix instead. Objective Physical Examination General Exam: Positive: Alert, Cooperative Eye Exam: Positive: EOMI; Negative: Sclera icteric ENT Exam: Positive: Atraumatic Neck Exam: Positive: Supple Chest Exam: Positive: Clear to auscultation Heart Exam: Positive: Rate Normal, Regular Rhythm Abdomen Exam: Positive: BS Hyperactive, Soft; Negative: Tenderness Extremity Exam: Positive: Edema (Bilateral pitting edema with swelling and tenderness), Tenderness, Swelling, Other (Legs are warm) Neuro Exam: Positive: Normal Speech, Cranial Nerves 3-12 NL Psych Exam: Positive: Anxiety Assessment /Plan Assessment Mrs. Lin is a 46-year-old female with hypoalbuminemia secondary to gastric bypass surgery and recent bilateral DVT and PE who presents with worsening lower extremity pain. Her lower extremity swelling is most likely secondary to hypoalbuminemia. This is most likely secondary to malabsorption from gastric bypass surgery. Patient's BP would not tolerate lasix pushes. Will try albumin and IV lasix drip instead. Plan/VTE VTE Prophylaxis Ordered?: Yes Plan 1. Hypoalbuminemia secondary to malnutrition from gastric bypass Dietary consult placed 2. Severe pain from diffuse anasarca of the legs laterally Patient swelling goes all the way up to her hip Most likely secondary to hypoalbuminemia and anemia Elevate legs above heart Pain control with this acetaminophen, tramadol, and morphine Morphine causes hives but she has not had morphine recently. We will combine morphine with Benadryl Continue gabapentin -Will try albumin and lasix combination 3. Suspected hypothyroidism In August 31, 2021 TSH was 10.9 and free T4 was 0.66 -Still showing signs of hypothyroidism -Will start levothyroxine 4. PE and DVT Patient was switched to edoxaban We do not have edoxaban here Switch to apixaban 5. Microscopic colitis We will need to confirm with PCP Patient denies any diarrhea 6. DVT prophylaxis Apixaban Disposition: Pending clinical improvement. Attempting albumin and Lasix combination to pull fluid off. VS, I&O, 24H, Fishbone Vital Signs/I&O Vital Signs Date Time Temp Pulse Resp B/P (MAP) Pulse Ox O2 Delivery O2 Flow Rate FiO2 09/24/21 13:20 12 09/24/21 11:11 97.6 69 97 Room Air 09/24/21 06:00 91/55 (67) I&O- Last 24 Hours up to 6 AM 09/24/21 06:00 Intake Total 0 ml Output Total 0 ml Balance 0 ml Laboratory Data 24H LABS Laboratory Tests 2 09/23/21 16:33: Immature Granulocyte % (Auto) 0.6, Neutrophils (%) (Auto) 67.0H, Lymphocytes (%) (Auto) 21.9L, Monocytes (%) (Auto) 8.3H, Eosinophils (%) (Auto) 1.5, Basophils (%) (Auto) 0.7, Neutrophils # (Auto) 6.1, Lymphocytes # (Auto) 2.0, Monocytes # (Auto) 0.8, Eosinophils # (Auto) 0.1, Basophils # (Auto) 0.1, Nucleated Red Blood Cells % (auto) 0.0, Erythrocyte Sedimentation Rate 20, Anion Gap 5L, Glomerular Filtration Rate > 60.0, Calcium Level 8.4L, Total Bilirubin 0.2, Aspartate Amino Transf (AST/SGOT) 34, Alanine Aminotransferase (ALT/SGPT) 37, Alkaline Phosphatase 141H, Total Creatine Kinase 52, Creatine Kinase MB 1.9, Creatine Kinase MB Relative Index 3.65, Troponin I < 0.02, C-Reactive Protein, Quantitative 0.64H, IX-Obo-B-Type Natriuretic Peptide 238H, Total Protein 4.6L, Albumin 2.1L, Albumin/Globulin Ratio 0.8L, Amylase Level 17L, Lipase 27L, Procalcitonin 0.13 09/23/21 18:30: C-Reactive Protein, Quantitative 0.56H, Prothrombin Time 15.3H, Prothromb Time International Ratio 1.16, Activated Partial Thromboplast Time 30.0, Prealbumin 8.3L, Thyroid Stimulating Hormone (TSH) 6.320H, Free Thyroxine 0.80, Total Triiodothyronine 58.9L, Thyroid Peroxidase Antibodies < 28.0 09/24/21 04:35: Reticulocyte # (auto) 78.2H, Percent Reticulocyte Count 3.1H, Reticulocyte Hemoglobin Equivalent 31.8 09/24/21 04:38: Nucleated Red Blood Cells % (auto) 0.0, Anion Gap 2L, Glomerular Filtration Rate > 60.0, Calcium Level 7.6L 09/24/21 10:33: Iron Level 28L, Total Iron Binding Capacity 84L, Transferrin % Saturation 33.3, Ferritin 36, Lactate Dehydrogenase 181, Vitamin B12 Level 406 CBC/BMP Laboratory Tests 09/23/21 16:33 09/24/21 04:38 Microbiology Microbiology 09/23/21 Blood Culture, Received Pending 09/23/21 Blood Culture, Received Pending 09/23/21 Respiratory Virus Panel (PCR) ([facility]) - Final, Complete DARYL ARGUELLES DO Sep 24, 2021 13:57
[2021-09-24] MEDS: LEVOTHYROXINE 25MCG TABLET (0.025MG) PO SCH (15:00)
--- NOTE | 2021-09-24 17:19 | REP ---
INDICATION: poor access. COMPARISON: None. TECHNIQUE: The procedure was performed under the direct supervision of Dr. Sterling. The risks and benefits of the procedure were explained to the patient and informed consent was obtained. The right brachial vein was localized using ultrasound guidance. The skin was prepped and draped in a sterile fashion. 1 mL of 1% lidocaine was used as a local anesthetic. Using ultrasound guidance the brachial vein was cannulated and a 0.018 guidewire was inserted and advanced to the SVC using fluoroscopic guidance, and last image hold technology. The needle was removed and a 5.5 Norwegian dilator and peel-away sheath was inserted over the guide wire. A 5.5 Norwegian dual lumen catheter was cut to length of 40 cm. The dilator was removed and the catheter was inserted over the guide wire with the tip ending in the SVC. The peel-away sheath was removed and the catheter was flushed with heparinized saline as per Hospital protocol. The catheter was affixed to the skin and a sterile dressing was applied. Estimated blood loss: Less than 1 mL The patient tolerated the procedure well and there were no immediate complications. 0.1 minutes of fluoro time was utilized for this procedure. FINDINGS: None IMPRESSION: PICC line insertion right brachial vein with the tip ending in the SVC. <Electronically signed by Hieu Thacker > 09/24/21 1531 <Electronically signed by Lorenzo Sterling > 09/24/21 [id number]
[2021-09-24] MEDS: SODIUM CHLORIDE 0.9% INJ 10 ML SYR IV SCH (17:33)
[2021-09-24] MEDS: FUROSEMIDE injection 250 MG in D5W 225 ML IV SCH (17:33)
[2021-09-24] MEDS: traMADol 50 MG TAB PO PRN (20:12)
[2021-09-25] VITALS (10 sets, daily range): BP systolic 90–107; BP diastolic 50–66
[2021-09-25] MEDS: SODIUM CHLORIDE 0.9% INJ 10 ML SYR IV PRN ×4 (00:46→20:13)
[2021-09-25] MEDS: MORPHINE 2 MG/ML 1ML VIAL (J2270) IV PRN ×5 (03:20→21:14)
[2021-09-25 06:10] LABS: HEMATOCRIT 28.3 % (36.0-47.0); HEMOGLOBIN 8.7 g/dl (12.0-15.5); MEAN CORPUSCULAR HEMOGLOBIN 31.9 pg (27.0-33.0); MEAN CORPUSCULAR HGB CONC 30.7 g/dl (32.0-36.5); MEAN CORPUSCULAR VOLUME 103.7 fl (80.0-96.0); PLATELET COUNT, AUTOMATED 345 10^3/uL (150-450); RED BLOOD COUNT 2.73 10^6/uL (4.00-5.40); WHITE BLOOD COUNT 7.4 10^3/uL (4.0-10.0)
[2021-09-25 06:32] LABS: BLOOD UREA NITROGEN 6 MG/DL (7-18); CALCIUM LEVEL 7.6 MG/DL (8.5-10.1); CARBON DIOXIDE LEVEL 32 MEQ/L (21-32); CHLORIDE LEVEL 106 MEQ/L (98-107); CREATININE FOR GFR 0.45 MG/DL (0.55-1.30); GLOMERULAR FILTRATION RATE > 60.0 (>58); GLUCOSE, FASTING 77 MG/DL (70-100); POTASSIUM SERUM 3.2 MEQ/L (3.5-5.1); SODIUM LEVEL 144 MEQ/L (136-145)
[2021-09-25] MEDS: LEVOTHYROXINE 25MCG TABLET (0.025MG) PO SCH (06:33)
[2021-09-25] MEDS: SODIUM CHLORIDE 0.9% INJ 10 ML SYR IV SCH ×2 (06:33→17:07)
[2021-09-25] MEDS: APIXABAN 5 MG TAB (ELIQUIS) PO SCH ×2 (08:13→21:14)
[2021-09-25] MEDS: FERROUS SULFATE 325MG TAB PO SCH ×2 (08:13→21:14)
[2021-09-25] MEDS: GABAPENTIN 300 MG CAP PO SCH ×3 (08:13→21:14)
[2021-09-25] MEDS: MULTIVITAMINS/MINERALS THERAP 1 TAB PO SCH (08:13)
[2021-09-25] MEDS: KCL 10MEQ/100ML SWI (KRUN) 10 MEQ in IV 1 EA IV SCH ×4 (08:14→12:55)
[2021-09-25] MEDS: POTASSIUM CHLORIDE 10MEQ SR TABLET PO SCH (08:14)
[2021-09-25] MEDS: THIAMINE 200MG 2ML VIAL IV SCH (08:14)
[2021-09-25] MEDS: FUROSEMIDE injection 250 MG in D5W 225 ML IV SCH (14:06)
--- NOTE | 2021-09-25 14:18 | IPNPDOC ---
Subjective Date Seen The patient was seen on 09/25/21. Subjective Chief Complaint/HPI Mrs. Lin is a 46-year-old female with hypoalbuminemia secondary to gastric bypass surgery and recent bilateral DVT and PE who presents with worsening lower extremity pain. This morning, she denies any chest pain or dyspnea. She is doing well with diuresis and her legs look better than admission. Continue with IV lasix and IV albumin. Objective Physical Examination General Exam: Positive: Alert, Cooperative Eye Exam: Positive: EOMI; Negative: Sclera icteric ENT Exam: Positive: Atraumatic Neck Exam: Positive: Supple Chest Exam: Positive: Clear to auscultation Heart Exam: Positive: Rate Normal, Regular Rhythm Abdomen Exam: Positive: BS Hyperactive, Soft; Negative: Tenderness Extremity Exam: Positive: Edema (Bilateral pitting edema with swelling and tenderness), Tenderness, Swelling, Other (Legs are warm) Neuro Exam: Positive: Normal Speech, Cranial Nerves 3-12 NL Psych Exam: Positive: Anxiety Assessment /Plan Assessment Mrs. Lin is a 46-year-old female with hypoalbuminemia secondary to gastric bypass surgery and recent bilateral DVT and PE who presents with worsening lower extremity pain. Her lower extremity swelling is most likely secondary to hypoalbuminemia. This is most likely secondary to malabsorption from gastric bypass surgery. Patient's BP would not tolerate lasix pushes. Will try albumin and IV lasix drip instead. Plan/VTE VTE Prophylaxis Ordered?: Yes Plan 1. Hypoalbuminemia secondary to malnutrition from gastric bypass Dietary consult placed 2. Severe pain from diffuse anasarca of the legs laterally Patient swelling goes all the way up to her hip Most likely secondary to hypoalbuminemia and anemia Elevate legs above heart Pain control with this acetaminophen, tramadol, and morphine Morphine causes hives but she has not had morphine recently. Will try morphine alone as Benadryl makes her sleepy Continue gabapentin -Continue albumin and Lasix combination 3. Suspected hypothyroidism In August 31, 2021 TSH was 10.9 and free T4 was 0.66 -Still showing signs of hypothyroidism -Will start levothyroxine 4. PE and DVT Patient was switched to edoxaban We do not have edoxaban here Switch to apixaban 5. Microscopic colitis We will need to confirm with PCP Patient denies any diarrhea 6. DVT prophylaxis Apixaban Disposition: Pending clinical improvement. Attempting albumin and Lasix combination to pull fluid off. VS, I&O, 24H, Bijanbone Vital Signs/I&O Vital Signs Date Time Temp Pulse Resp B/P (MAP) Pulse Ox O2 Delivery O2 Flow Rate FiO2 09/25/21 12:38 16 Room Air 09/25/21 12:14 99.1 82 103/59 97 I&O- Last 24 Hours up to 6 AM 09/25/21 05:59 Intake Total 850.0 ml Output Total 4450 ml Balance -3600.0 ml Laboratory Data 24H LABS Laboratory Tests 2 09/25/21 05:38: Nucleated Red Blood Cells % (auto) 0.0, Anion Gap 6L, Glomerular Filtration Rate > 60.0, Calcium Level 7.6L CBC/BMP Laboratory Tests 09/25/21 05:38 Microbiology Microbiology 09/23/21 Blood Culture - Preliminary, Resulted No growth after 24 hours . All specim... 09/23/21 Blood Culture - Preliminary, Resulted No growth after 24 hours . All specim... 09/23/21 Respiratory Virus Panel (PCR) ([facility]) - Final, Complete DARYL ARGUELLES DO Sep 25, 2021 14:18
[2021-09-25] MEDS: traMADol 50 MG TAB PO PRN (14:19)
[2021-09-25 15:39] LABS: BLOOD UREA NITROGEN 5 MG/DL (7-18); CARBON DIOXIDE LEVEL 35 MEQ/L (21-32); CHLORIDE LEVEL 105 MEQ/L (98-107); CREATININE FOR GFR 0.43 MG/DL (0.55-1.30); GLOMERULAR FILTRATION RATE > 60.0 (>58); GLUCOSE, FASTING 79 MG/DL (70-100); POTASSIUM SERUM 5.3 MEQ/L (3.5-5.1); SODIUM LEVEL 141 MEQ/L (136-145)
[2021-09-25 16:21] LABS: MAGNESIUM LEVEL 2.2 MG/DL (1.8-2.4)
[2021-09-25] MEDS: LACTIC ACID 12% LOTION 225 GM BTL TOP SCH ×2 (17:06→21:14)
[2021-09-26] VITALS (8 sets, daily range): BP systolic 89–102; BP diastolic 52–75
[2021-09-26] MEDS: traMADol 50 MG TAB PO PRN (00:15)
[2021-09-26] MEDS: MORPHINE 2 MG/ML 1ML VIAL (J2270) IV PRN ×4 (01:14→14:38)
[2021-09-26] MEDS: SODIUM CHLORIDE 0.9% INJ 10 ML SYR IV PRN ×2 (01:14→12:48)
[2021-09-26] MEDS: LEVOTHYROXINE 25MCG TABLET (0.025MG) PO SCH (05:28)
[2021-09-26] MEDS: SODIUM CHLORIDE 0.9% INJ 10 ML SYR IV SCH (05:28)
[2021-09-26 06:52] LABS: HEMATOCRIT 28.7 % (36.0-47.0); HEMOGLOBIN 8.9 g/dl (12.0-15.5); MEAN CORPUSCULAR HEMOGLOBIN 31.8 pg (27.0-33.0); MEAN CORPUSCULAR VOLUME 102.5 fl (80.0-96.0); PLATELET COUNT, AUTOMATED 346 10^3/uL (150-450); WHITE BLOOD COUNT 7.1 10^3/uL (4.0-10.0)
[2021-09-26 07:19] LABS: BLOOD UREA NITROGEN 6 MG/DL (7-18); CALCIUM LEVEL 8.3 MG/DL (8.5-10.1); CARBON DIOXIDE LEVEL 33 MEQ/L (21-32); CHLORIDE LEVEL 102 MEQ/L (98-107); CREATININE FOR GFR 0.43 MG/DL (0.55-1.30); GLOMERULAR FILTRATION RATE > 60.0 (>58); GLUCOSE, FASTING 84 MG/DL (70-100); POTASSIUM SERUM 3.1 MEQ/L (3.5-5.1); SODIUM LEVEL 141 MEQ/L (136-145)
[2021-09-26] MEDS ORDERED: PERCOCET 5MG/325MG TAB PO PRN (07:20)
[2021-09-26] MEDS: POTASSIUM CHLORIDE 10MEQ SR TABLET PO SCH (09:00)
[2021-09-26] MEDS: APIXABAN 5 MG TAB (ELIQUIS) PO SCH (09:04)
[2021-09-26] MEDS: FERROUS SULFATE 325MG TAB PO SCH (09:04)
[2021-09-26] MEDS: MULTIVITAMINS/MINERALS THERAP 1 TAB PO SCH (09:04)
[2021-09-26] MEDS: THIAMINE 200MG 2ML VIAL IV SCH (09:04)
[2021-09-26] MEDS: GABAPENTIN 300 MG CAP PO SCH (09:04)
[2021-09-26] MEDS: LACTIC ACID 12% LOTION 225 GM BTL TOP SCH (09:05)
[2021-09-26] MEDS: KCL 10MEQ/100ML SWI (KRUN) 10 MEQ in IV 1 EA IV SCH ×4 (09:06→12:47)
[2021-09-26] MEDS ORDERED: ONDANSETRON 4MG/2ML VIAL IV PRN (09:55)
--- NOTE | 2021-09-26 12:36 | IPNPDOC ---
Subjective Date Seen The patient was seen on 09/26/21. Subjective Chief Complaint/HPI Mrs. Lin is a 46-year-old female with hypoalbuminemia secondary to gastric bypass surgery and recent bilateral DVT and PE who presents with worsening lower extremity pain. She has diuresed extremely well with the IV lasix and IV albumin. She has lost about 12kg in water weight since admission. Legs look better and softer. mill tender second operator. Will continue with diuresis. Otherwise, will add Percocet and try to wean off of morphine. Will do another 4 doses of albumin and IV Lasix. Patient is concerned about going home and preventing the edema again. Will touch base with physician locums urgent care/dietitian on Monday about trying to increase albumin with protein powder and supplements. Objective Physical Examination General Exam: Positive: Alert, Cooperative Eye Exam: Positive: EOMI; Negative: Sclera icteric ENT Exam: Positive: Atraumatic Neck Exam: Positive: Supple Chest Exam: Positive: Clear to auscultation Heart Exam: Positive: Rate Normal, Regular Rhythm Abdomen Exam: Positive: BS Hyperactive, Soft; Negative: Tenderness Extremity Exam: Positive: Edema (Bilateral pitting edema with swelling and tenderness), Tenderness, Swelling, Other (Legs are warm) Neuro Exam: Positive: Normal Speech, Cranial Nerves 3-12 NL Psych Exam: Positive: Anxiety Assessment /Plan Assessment Mrs. Lin is a 46-year-old female with hypoalbuminemia secondary to gastric bypass surgery and recent bilateral DVT and PE who presents with worsening lower extremity pain. Her lower extremity swelling is most likely secondary to hypoalbuminemia. This is most likely secondary to malabsorption from gastric bypass surgery. Patient's BP would not tolerate lasix pushes. Patient did ex tremely well with albumin and IV lasix drip. Will touch base with physician locums urgent care/dietitian on Monday about trying to increase albumin with protein powder and supplements. Plan/VTE VTE Prophylaxis Ordered?: Yes Plan 1. Hypoalbuminemia secondary to malnutrition from gastric bypass Dietary consult placed 2. Severe pain from diffuse anasarca of the legs laterally Patient swelling goes all the way up to her hip Most likely secondary to hypoalbuminemia and anemia Elevate legs above heart Pain control with this acetaminophen, tramadol, and morphine Morphine causes hives but she has not had morphine recently. Will try morphine alone as Benadryl makes her sleepy Continue gabapentin -Continue albumin and Lasix combination 3. Suspected hypothyroidism In August 31, 2021 TSH was 10.9 and free T4 was 0.66 -Still showing signs of hypothyroidism -Will start levothyroxine 4. PE and DVT Patient was switched to edoxaban We do not have edoxaban here Switch to apixaban 5. Microscopic colitis We will need to confirm with PCP Patient denies any diarrhea 6. DVT prophylaxis Apixaban Disposition: Will continue with one more day of albumin and IV lasix drip. VS, I&O, 24H, Fishbone Vital Signs/I&O Vital Signs Date Time Temp Pulse Resp B/P (MAP) Pulse Ox O2 Delivery O2 Flow Rate FiO2 09/26/21 11:31 99.1 72 16 102/54 99 Room Air I&O- Last 24 Hours up to 6 AM 09/26/21 06:00 Intake Total 980.0 ml Output Total 6900 ml Balance -5920.0 ml Laboratory Data 24H LABS Laboratory Tests 2 09/25/21 14:33: Anion Gap 1L, Glomerular Filtration Rate > 60.0, Calcium Level 8.0L, Magnesium Level 2.2 09/26/21 06:28: Anion Gap 6L, Glomerular Filtration Rate > 60.0, Calcium Level 8.3L, Nucleated Red Blood Cells % (auto) 0.0 CBC/BMP Laboratory Tests 09/25/21 14:33 09/26/21 06:28 Microbiology Microbiology 09/23/21 Blood Culture - Preliminary, Resulted No Growth after 48 hours. All Specime... 09/23/21 Blood Culture - Preliminary, Resulted No Growth after 48 hours. All Specime... 09/23/21 Respiratory Virus Panel (PCR) ([facility]) - Final, Complete DARYL ARGUELLES DO Sep 26, 2021 12:36
[2021-09-26] MEDS: FUROSEMIDE injection 250 MG in D5W 225 ML IV SCH (14:38)
[2021-09-26] MEDS ORDERED: LEVO25TA5 PO (15:54)
[2021-09-26] MEDS ORDERED: PERCOCET PO (15:54)
--- NOTE | 2021-09-26 21:08 | DS.PDOC ---
Discharge Summary General Date of Admission Sep 23, 2021 at 15:53 Date of Discharge Sep 26, 2021 Discharge Summary PROCEDURES PERFORMED DURING STAY: None ADMITTING DIAGNOSES: 1. Hypoalbuminemia secondary to malnutrition from gastric bypass 2. Severe pain from diffuse anasarca of the legs laterally 3. Hypothyroidism 4. PE and DVT 5. Microscopic colitis DISCHARGE DIAGNOSES: 1. Hypoalbuminemia secondary to malnutrition from gastric bypass 2. Severe pain from diffuse anasarca of the legs laterally 3. Hypothyroidism 4. PE and DVT 5. Microscopic colitis COMPLICATIONS/CHIEF COMPLAINT: Lymphacytic Colitis. HISTORY OF PRESENT ILLNESS: Mrs. Lin is a 46-year-old female with hypoalbuminemia secondary to gastric bypass surgery and recent bilateral DVT and PE who presents with worsening lower extremity pain. Patient tells me that for the past 3 months, she has been having worsening swelling of her legs. She used to wear a pants size 2. Today she had an office visit with her PCP. She was in intractable pain and was directly admitted here. Patient denies any fever or chills, chest pain, dyspnea, abdominal pain, diarrhea, or dysuria. She tells me that she is eating a lot but has not helped her swelling of the legs. She tells me she was recently diagnosed with microscopic colitis, but denies any diarrhea. When I saw patient, her legs were large, swollen, and tender. The swelling was all the way up to her hip. She tells me last week she was found to have bilateral DVT and was put on edoxaban. Patient be admitted for intractable pain. HOSPITAL COURSE: Due to patient's low blood pressure, she would not have tolerated Lasix boluses. Instead, opted for IV albumin and Lasix drip (5mg/hr). Patient did well with the Lasix drip and lost 12kg in water weight. Leg edema improved and shrunk. Patient had already completed 6 dose of albumin. Planned for another 4 dose of albumin and to discuss with chemical unit operator/cylinder press operator helper on Monday about protein to help boost albumin production, but patient had a family emergency. Patient's son was in a motor vehicle accident and is being sent to [facility] in [place]. Patient requested to be discharge. We had done well with the diuresis. I cautioned her to check her blood pressure while at home and if she were to get lightheaded or dizzy to come back to the hospital. I also recommended trying to establish with a chemical unit operator/cylinder press operator helper to help find ways to boost albumin. DISCHARGE MEDICATIONS: Please see below. ALLERGIES: Please see below. PHYSICAL EXAMINATION ON DISCHARGE: VITAL SIGNS: Please see below. GENERAL: Comfortable, in no apparent distress HEENT: Head normocephalic, atraumatic NECK: Supple CARDIOVASCULAR EXAMINATION: Regular rate and rhythm RESPIRATORY EXAMINATION: Lungs clear to auscultation bilaterally ABDOMINAL EXAMINATION: Soft, non-tender, normal bowel sounds EXTREMITIES: Legs are skinnier than before. More rebound in tissue. Minimal, if any pitting SKIN: Warm NEUROLOGICAL EXAMINATION: CN 3-12 grossly intact PSYCHIATRIC EXAMINATION: Normal mood and affect LABORATORY DATA: Please see below. IMAGING: None PROGNOSIS: Good ACTIVITY: As tolerated. DIET: As tolerated. DISCHARGE PLAN: Home DISPOSITION: 01 Home, Self-Care. DISCHARGE INSTRUCTIONS: 1. Follow up with PCP within 1 week ITEMS TO FOLLOWUP ON ON OUTPATIENT: 1. Blood pressure DISCHARGE CONDITION: Stable. Total time spent on discharge planning, discharge summary, and medication reconciliation: 45 minutes Vital Signs/I&Os Vital Signs Date Time Temp Pulse Resp B/P (MAP) Pulse Ox O2 Delivery O2 Flow Rate FiO2 09/26/21 15:44 98.9 75 16 100/58 99 Room Air I&O- Last 24 Hours up to 6 AM 09/26/21 06:00 Intake Total 980.0 ml Output Total 6900 ml Balance -5920.0 ml Laboratory Data Labs 24H Laboratory Tests 2 09/26/21 06:28: Nucleated Red Blood Cells % (auto) 0.0, Anion Gap 6L, Glomerular Filtration Rate > 60.0, Calcium Level 8.3L CBC/BMP Laboratory Tests 09/26/21 06:28 Microbiology Microbiology 09/23/21 Blood Culture - Preliminary, Resulted No Growth after 72 hours. All specime... 09/23/21 Blood Culture - Preliminary, Resulted No Growth after 72 hours. All specime... 09/23/21 Respiratory Virus Panel (PCR) ([facility]) - Final, Complete Discharge Medications Scheduled Biotin (Biotin) 1,000 Mcg Tab.chew, 1,000 MCG PO BID, (Reported) Edoxaban Tosylate (Savaysa) 30 Mg Tablet, 30 MG PO DAILY, (Reported) Ergocalciferol (Vitamin D2) (Vitamin D2) 50,000 Units Cap, 50,000 UNITS PO QWEEK, (Reported) MONDAYS Ferrous Sulfate (Ferrous Sulfate) 325 Mg Tablet.dr, 325 MG PO BID, (Reported) Furosemide (Furosemide) 20 Mg Tablet, 20 MG PO DAILY, (Reported) Gabapentin (Gabapentin) 300 Mg Capsule, 300 MG PO TID, (Reported) Levothyroxine Sodium (Levothyroxine Sodium) 25 Mcg Tablet, 25 MCG PO DAILY@06 Multivitamin with Folic Acid (Tab-A-Loretta Tablet) 400 Mcg Tablet, 400 MCG PO DAILY, (Reported) Potassium Chloride (Potassium Chloride) 20 Meq Tab.er.prt, 20 MEQ PO DAILY, (Reported) Scheduled PRN Oxycodone/Acetaminophen (Oxycodone-Acetaminophen 5-325) 1 Each Tablet, 1 TAB PO Q6HP PRN for MODERATE PAIN (PS 5-7) Allergies Coded Allergies: No Known Allergies (Unverified , 09/23/21) DARYL ARGUELLES DO Sep 26, 2021 21:08
[2021-09-27] MEDS ORDERED: VITAMIN D 50,000 UNITS CAPSULE (ERGOCALCIFEROL 1.25MG) PO SCH (09:00)
== END 2021-09-26 16:48 | disposition home or self-care (01) | DRG 694 ==
LOC: M MSPAV 15:53
PROVIDERS: ADMIT General Practice; ATTEND Internal Medicine
PROC: 02HV33Z Insertion of Infusion Device into Superior Vena Cava, Percutaneous Approach (ICD-10-PCS; 2021-09-24)
PROC: 30233J1 Transfusion of Nonautologous Serum Albumin into Peripheral Vein, Percutaneous Approach (ICD-10-PCS; principal; 2021-09-24 16:00)
DX: E88.09 Other disorders of plasma-protein metabolism, not elsewhere classified (principal); E46 Unspecified protein-calorie malnutrition; K91.2 Postsurgical malabsorption, not elsewhere classified; K52.839 Microscopic colitis, unspecified; Z98.84 Bariatric surgery status; E03.9 Hypothyroidism, unspecified; Z86.711 Personal history of pulmonary embolism; Z86.718 Personal history of other venous thrombosis and embolism; Z79.01 Long term (current) use of anticoagulants; Z79.899 Other long term (current) drug therapy